=== PATIENT | female | born 1970 | race Caucasian/White ===

== ENCOUNTER 2017-08-31 08:00 | Outpatient (CLI) | payer MEDICAID ==
[2017-08-31 19:12] LABS: BASOPHILS # (AUTO) 0.1 10^3/uL (0.0-0.1); BASOPHILS % (AUTO) 1.2 %; EOSINOPHILS # (AUTO) 0.1 10^3/uL (0.0-0.7); HGB - HEMOGLOBIN 11.6 g/dL (12.0-16.0); LYMPHOCYTES # (AUTO) 1.4 10^3/uL (1.5-3.5); LYMPHOCYTES % (AUTO) 21.2 %; MEAN CORPUSCULAR HEMOGLOBIN 22.8 pg (27.0-31.0); MEAN CORPUSCULAR HGB CONC 29.6 g/dL (32.0-36.0); MEAN CORPUSCULAR VOLUME 77.1 fL (81.0-99.0); MEAN PLATELET VOLUME 7.9 fL (7.9-10.8); MONOCYTES # (AUTO) 0.6 10^3/uL (0.0-1.0); MONOCYTES % (AUTO) 8.6 %; NEUTROPHILS # (AUTO) 4.4 10^3/uL (1.5-6.6); PLT - PLATELET COUNT 246 10^3/uL (130-450); RED BLOOD COUNT 5.07 10^6/uL (4.20-5.40); RED CELL DISTRIBUTION WIDTH 22.7 % (12.0-15.0); WHITE BLOOD COUNT 6.6 x10^3/uL (4.8-10.8)
[2017-08-31 19:35] LABS: THYROID STIMULATING HORMONE 3.15 uIU/mL (0.34-5.60)
[2017-08-31 19:40] LABS: FERRITIN 18.9 ng/mL (11.0-306.8)
[2017-08-31 19:41] LABS: % IRON SATURATION 6 % (20-50); ALBUMIN 3.6 g/dL (3.2-5.5); ALBUMIN/GLOBULIN RATIO 1.1 (1.0-2.2); ALKALINE PHOSPHATASE 114 IU/L (42-121); ALT ALANINE AMINOTRANSFERASE < 10 IU/L (10-60); AST ASPARTATE AMINOTRANSFERASE 24 IU/L (10-42); BILIRUBIN,TOTAL 2.3 mg/dL (0.2-1.0); BUN - BLOOD UREA NITROGEN 9 mg/dL (6-20); CALCIUM 8.6 mg/dL (8.5-10.3); CARBON DIOXIDE - CO2 27 mmol/L (21-32); CHLORIDE 104 mmol/L (101-111); CHOL/HDL RATIO 3.4 (<4.4); CHOLESTEROL 99 mg/dL; CREATININE 0.5 mg/dL (0.4-1.0); GFR - MDRD 133 (>89); GLUCOSE 109 mg/dL (70-100); HDL CHOLESTEROL 29 mg/dL; IRON 35 ug/dL (28-170); SODIUM 137 mmol/L (135-145); TOTAL IRON BINDING CAPACITY 578 ug/dL (250-450); TOTAL PROTEIN 6.9 g/dL (6.7-8.2); TRANSFERRIN 413 mg/dL (192-382)
[2017-08-31 19:44] LABS: FOLATE 15.87 ng/mL (5.90 - >24.8)
[2017-08-31 20:10] LABS: LDL CHOLESTEROL,DIRECT 61 mg/dL; LDLD/HDL RATIO 2.1 (<4.4)
[2017-08-31 20:57] LABS: PLATELET ESTIMATE, MANUAL NORMAL (130-450,000) (NORMAL); PLATELET MORPHOLOGY 2+ GIANT PLATELETS (NORMAL)
[2017-09-01 14:37] LABS: HEPATITIS C ANTIBODY NON-REACTIVE (NON-REACTIVE)
== END 2017-08-31 08:01 | disposition home or self-care (01) ==
LOC: LAB.N 08:00
PROVIDERS: ATTEND Nurse Practitioner Gerontology
DX: Z13.9 Encounter for screening, unspecified (principal)
CPT/HCPCS: 36415; 80053; 80061; 82607; 82728; 82746; 83540; 83721; 83880; 84443; 84466; 85025; 86704; 86709; 86803; 87902

== ENCOUNTER 2017-09-05 14:32 | Emergency (ER) | payer MEDICAID ==
--- NOTE | 2017-09-05 15:01 | ED Physician Documentation ---
PD HPI DYSPNEA - Stated complaint Stated Complaint: ABD/LEG SWELLING - Chief complaint Chief Complaint: General - History obtained from History obtained from: Patient - History of Present Illness Timing - onset: How many weeks ago (2 week of increased leg edema and dyspnea. Legs a little less swollen since PCP appt last week.) Timing - onset during: Rest Timing - duration: Weeks (2) Timing - details: Gradual onset, Still present Inciting event(s): Exercise. No: Out of meds Improved by: Rest, Sitting up Associated symptoms: Cough (chronic, not recently worse), Bilateral edema. No: Fever, Wheezing, Chest pain / discomfort, Palpitations Similar symptoms before: Diagnosis (CHF) Recently seen: Clinic (had first appt with new PCP (recently moved, [place] 4 months ago but had to get new insurance arranged in [place]) last week with labs showing elevated BNP. Rest not too bad.) Review of Systems Constitutional: denies: Fever, Chills Nose: denies: Rhinorrhea / runny nose, Congestion Throat: denies: Sore throat Cardiac: reports: Pedal edema. denies: Chest pain / pressure, Palpitations, Calf pain Respiratory: reports: Dyspnea, Cough (chronic). denies: Wheezing GI: denies: Abdominal Pain, Nausea, Vomiting Skin: denies: Rash Musculoskeletal: denies: Neck pain, Back pain Neurologic: reports: Generalized weakness. denies: Focal weakness, Numbness, Near syncope, Syncope PD PAST MEDICAL HISTORY - Past Medical History Cardiovascular: Congestive heart failure, Other (cardiomyopathy from alchol/ drug use in the past. ) Respiratory: COPD Neuro: None Endocrine/Autoimmune: None - Present Medications Home Medications: Ambulatory Orders Medication Instructions Recorded Confirmed Aspirin [Adult Low Dose Aspirin EC] 81 mg PO 09/05/17 Carvedilol 3.125 mg PO 09/05/17 Cholecalciferol [Vitamin D3] 5,000 unit PO 09/05/17 Digoxin 0.125 mg PO 09/05/17 Folic Acid 1 mg PO 09/05/17 Furosemide 20 mg PO 09/05/17 Lisinopril 2.5 mg PO 09/05/17 Potassium Chloride 10 meq PO DAILY #30 tablet.er 09/05/17 Spironolactone 25 mg PO 09/05/17 - Allergies Allergies/Adverse Reactions: Allergies Allergy/AdvReac Type Severity Reaction Status Date / Time doxycycline Allergy Anaphylaxis Verified 09/05/17 14:50 PD ED PE NORMAL - Vitals Vital signs reviewed: Yes - General General: Alert and oriented X 3, No acute distress, Well developed/nourished - HEENT HEENT: Moist mucous membranes, Pharynx benign - Neck Neck: Supple, no meningeal sign, No adenopathy, Other (JVD noted at 60 degrees) - Cardiac Cardiac: RRR, No murmur - Respiratory Respiratory: No: Clear bilaterally (crackles just at bases/lower portion. Rest is clear. ) - Abdomen Abdomen: Normal bowel sounds, Soft - Back Back: No CVA TTP - Derm Derm: Normal color, Warm and dry - Extremities Extremities: No deformity, No tenderness to palpate, Normal ROM s pain, No calf tenderness / cord, Other (2+ edema in legs) - Neuro Neuro: Alert and oriented X 3, No motor deficit, Normal speech Results - Vitals Vitals: Vital Signs - 24 hr 09/05/17 09/05/17 09/05/17 14:39 14:58 17:11 Temperature 37 C Heart Rate 92 102 H Respiratory 18 20 Rate Blood Pressure 114/80 116/89 H O2 Saturation 97 95 09/05/17 18:11 Temperature Heart Rate 92 Respiratory 16 Rate Blood Pressure 125/95 H O2 Saturation 95 Oxygen O2 Source Room air - EKG (time done) 13:58 Rhythm: NSR [place]: Normal Intervals: Normal [place] QRS: Low voltage Ischemia: Normal ST segments. No: ST elevation c/w ischemia, ST depression - Labs Labs: Laboratory Tests 09/05/17 09/05/17 09/05/17 15:25 15:25 15:25 WBC 6.0 RBC 5.00 Hgb 11.5 L Hct 37.4 MCV 74.8 L MCH 23.0 L MCHC 30.8 L RDW 22.6 H Plt Count 270 MPV 7.5 L Neut # 4.1 Lymph # 1.1 L [place] # 0.6 Eos # 0.2 Baso # 0.1 Absolute Nucleated RBC 0.00 Nucleated RBC % 0.0 Manual Slide Review Indicated WBC Morphology NORMAL APPEARANCE Platelet Estimate NORMAL (130-450,000) Platelet Morphology NORMAL APPEARANCE RBC Morph Micro Appear 1+ TARGET CELLS Sodium 137 Potassium 3.3 L Chloride 103 Carbon Dioxide 25 Anion Gap 9.0 BUN 6 Creatinine 0.6 Estimated GFR (MDRD) 108 Glucose 87 Calcium 8.4 L Magnesium 1.6 L Total Bilirubin 1.6 H AST 22 ALT < 10 L Alkaline Phosphatase 108 B-Natriuretic Peptide 1716 H Total Protein 6.7 Albumin 3.6 Globulin 3.1 Albumin/Globulin Ratio 1.2 Lipase 15 L Last Dose Date UNKNOWN Last Dose Time UNKNOWN Digoxin 0.2 - Rads (name of study) chest xray Radiology: Prelim report reviewed (enlaged heart; some vascular congestion; no infiltrates. ) PD MEDICAL DECISION MAKING - ED course Complexity details: reviewed old records (she has ECHO from 03/24 showing minimal valve problems (Mild MR, TR) and cardiomyopathy with EF10-15%. She has signs of exac CHF but is stable with good sats, no work of breathing. Has PCP appt in couple days and Cardiology appt Wed (3 days). BNP is down from the . CXR is not too bad. Likely exac CHF; consider some pericardial effusion, but would treat with diuretic still at this point. ), considered differential, d/w patient Departure - Departure Disposition: Home, Self Care Clinical Impression: Cardiomyopathy Qualifiers: Cardiomyopathy type: unspecified Qualified Code(s): I42.9 - Cardiomyopathy, unspecified CHF (congestive heart failure) Qualifiers: Congestive heart failure type: combined Congestive heart failure chronicity: acute on chronic Qualified Code(s): I50.43 - Acute on chronic combined systolic (congestive) and diastolic (congestive) heart failure Condition: Stable Record reviewed to determine appropriate education?: Yes Instructions: ED CHF General Follow-Up: Cindy Rios ARNP [Primary Care Provider] - Prescriptions: Potassium Chloride 10 meq PO DAILY #30 tablet.er Comments: Increase your furosemide from 20 to 40 mg daily. Suggest taking the normal 20 mg in the morning as you have been and then a second dose of 20 mg around lunchtime. Will try to get more fluid off of the over the next few days. 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 Add a potassium supplement daily. Recheck if not improving over the next day or 2 or if you are worsening. Discharge Date/Time: 09/05/17 18:27
[2017-09-05] MEDS ORDERED: FUROSEMIDE 40 MG/4 ML VIAL IVP STA (15:29)
[2017-09-05 15:44] LABS: BASOPHILS # (AUTO) 0.1 10^3/uL (0.0-0.1); BASOPHILS % (AUTO) 1.4 %; EOSINOPHILS # (AUTO) 0.2 10^3/uL (0.0-0.7); EOSINOPHILS % (AUTO) 3.1 %; HGB - HEMOGLOBIN 11.5 g/dL (12.0-16.0); LYMPHOCYTES # (AUTO) 1.1 10^3/uL (1.5-3.5); MEAN CORPUSCULAR HGB CONC 30.8 g/dL (32.0-36.0); MEAN CORPUSCULAR VOLUME 74.8 fL (81.0-99.0); MEAN PLATELET VOLUME 7.5 fL (7.9-10.8); MONOCYTES # (AUTO) 0.6 10^3/uL (0.0-1.0); MONOCYTES % (AUTO) 10.1 %; NEUTROPHILS # (AUTO) 4.1 10^3/uL (1.5-6.6); NEUTROPHILS % (AUTO) 67.4 %; PLT - PLATELET COUNT 270 10^3/uL (130-450); RED CELL DISTRIBUTION WIDTH 22.6 % (12.0-15.0)
[2017-09-05] MEDS ORDERED: POTASSIUM BICARB 25 MEQ TABLET PO STA (15:45)
[2017-09-05 15:49] LABS: ALBUMIN 3.6 g/dL (3.2-5.5); ALBUMIN/GLOBULIN RATIO 1.2 (1.0-2.2); ALKALINE PHOSPHATASE 108 IU/L (42-121); ALT ALANINE AMINOTRANSFERASE < 10 IU/L (10-60); AST ASPARTATE AMINOTRANSFERASE 22 IU/L (10-42); BILIRUBIN,TOTAL 1.6 mg/dL (0.2-1.0); BUN - BLOOD UREA NITROGEN 6 mg/dL (6-20); CALCIUM 8.4 mg/dL (8.5-10.3); CARBON DIOXIDE - CO2 25 mmol/L (21-32); CHLORIDE 103 mmol/L (101-111); CREATININE 0.6 mg/dL (0.4-1.0); DIGOXIN 0.2 ng/mL; GFR - MDRD 108 (>89); GLUCOSE 87 mg/dL (70-100); LIPASE 15 U/L (22-51); MAGNESIUM 1.6 mg/dL (1.7-2.8); SODIUM 137 mmol/L (135-145); TOTAL PROTEIN 6.7 g/dL (6.7-8.2)
[2017-09-05] MEDS ORDERED: MAGNESIUM SULFATE 2 GRAM 2 GM/50 ML BAG IV ONE (16:26)
--- NOTE | 2017-09-05 17:38 | XRAY Report ---
EXAM: CHEST RADIOGRAPHY EXAM DATE: 09/05/2017 05:33 PM. CLINICAL HISTORY: Dyspnea; CHF. COMPARISON: None. TECHNIQUE: 2 views. FINDINGS: Lungs/Pleura: No focal opacities evident. No edema or significant vascular congestion. No pleural eff usion. No pneumothorax. Normal volumes. Mediastinum: Heart is moderately enlarged. Other: None. IMPRESSION: Moderate cardiomegaly. No priors available for comparison and a pericardial effusion is n ot excluded. No edema or consolidation. [facility] Referring Provider Line: [phone] SITE ID: [id number]
[2017-09-05 17:49] LABS: PLATELET ESTIMATE, MANUAL NORMAL (130-450,000) (NORMAL); PLATELET MORPHOLOGY NORMAL APPEARANCE (NORMAL)
[2017-09-05 18:17] VITALS: BP 125/95
== END 2017-09-05 18:27 | disposition home or self-care (01) ==
LOC: ED 14:32
DX: I42.9 Cardiomyopathy, unspecified (principal); I50.43 Acute on chronic combined systolic (congestive) and diastolic (congestive) heart failure
CPT/HCPCS: 36415; 71046; 80053; 80162; 83690; 83735; 83880; 85025; 93005; 96365; 96375; 99283; 99284; A9270

== ENCOUNTER 2018-04-29 15:13 | Emergency (ER) | payer MEDICAID ==
[2018-04-29 16:47] LABS: BASOPHILS % (AUTO) 0.3 %; EOSINOPHILS # (AUTO) 0.1 10^3/uL (0.0-0.7); EOSINOPHILS % (AUTO) 1.5 %; HGB - HEMOGLOBIN 12.8 g/dL (12.0-16.0); LYMPHOCYTES # (AUTO) 1.2 10^3/uL (1.5-3.5); LYMPHOCYTES % (AUTO) 24.9 %; MEAN CORPUSCULAR HEMOGLOBIN 26.8 pg (27.0-31.0); MEAN CORPUSCULAR HGB CONC 31.4 g/dL (32.0-36.0); MEAN CORPUSCULAR VOLUME 85.3 fL (81.0-99.0); MEAN PLATELET VOLUME 7.7 fL (7.9-10.8); MONOCYTES # (AUTO) 0.4 10^3/uL (0.0-1.0); MONOCYTES % (AUTO) 8.6 %; NEUTROPHILS # (AUTO) 3.2 10^3/uL (1.5-6.6); NEUTROPHILS % (AUTO) 64.7 %; PLT - PLATELET COUNT 209 10^3/uL (130-450); RED BLOOD COUNT 4.77 10^6/uL (4.20-5.40); RED CELL DISTRIBUTION WIDTH 20.2 % (12.0-15.0); WHITE BLOOD COUNT 4.9 x10^3/uL (4.8-10.8)
[2018-04-29 16:55] LABS: ALBUMIN 4.1 g/dL (3.2-5.5); ALBUMIN/GLOBULIN RATIO 1.4 (1.0-2.2); ALKALINE PHOSPHATASE 167 IU/L (42-121); ALT ALANINE AMINOTRANSFERASE < 10 IU/L (10-60); AST ASPARTATE AMINOTRANSFERASE 23 IU/L (10-42); BILIRUBIN,TOTAL 3.3 mg/dL (0.2-1.0); BUN - BLOOD UREA NITROGEN 7 mg/dL (6-20); CALCIUM 8.5 mg/dL (8.5-10.3); CARBON DIOXIDE - CO2 27 mmol/L (21-32); CHLORIDE 97 mmol/L (101-111); CREATININE 0.5 mg/dL (0.4-1.0); GFR - MDRD 132 (>89); GLUCOSE 98 mg/dL (70-100); LIPASE 21 U/L (22-51); SODIUM 133 mmol/L (135-145); TOTAL PROTEIN 7.1 g/dL (6.7-8.2)
[2018-04-29 17:20] LABS: PLATELET ESTIMATE, MANUAL NORMAL (130-450,000) (NORMAL); PLATELET MORPHOLOGY NORMAL APPEARANCE (NORMAL)
--- NOTE | 2018-04-29 17:47 | ED Physician Documentation ---
PD HPI ABD PAIN - Stated complaint Stated Complaint: ABD PX/BLOATING - Chief complaint Chief Complaint: Abd Pain - History obtained from History obtained from: Patient - History of Present Illness Timing - duration: Days Timing - details: Waxing and waning (She has been having intermittent pain in the central abdomen with a lump feeling. She is concerned it is a hernia. She had not noticed it as prominently previously. It has been more uncomfortable the last several days as she has also had a cough and has had increased wheezing.) Quality: Aching Location: Periumbilical Radiation: No: Chest, Lower back Worsened by: Palpation, Other (coughing) Associated symptoms: Constipation. No: Fever, Nausea, Vomiting, Diarrhea Recently seen: Not recently seen Review of Systems Constitutional: denies: Fever, Chills Nose: reports: Congestion. denies: Rhinorrhea / runny nose Throat: denies: Sore throat Cardiac: denies: Chest pain / pressure Respiratory: reports: Dyspnea, Cough, Wheezing GI: reports: Abdominal Pain. denies: Nausea, Vomiting, Diarrhea : denies: Dysuria, Frequency PD PAST MEDICAL HISTORY - Past Medical History Cardiovascular: Congestive heart failure, Other (cardiomyopathy from alchol/drug use in the past. ) Respiratory: COPD Endocrine/Autoimmune: None - Present Medications Home Medications: Ambulatory Orders Medication Instructions Recorded Confirmed Aspirin [Adult Low Dose Aspirin EC] 81 mg PO 09/05/17 Carvedilol 3.125 mg PO 09/05/17 Cholecalciferol [Vitamin D3] 5,000 unit PO 09/05/17 Digoxin 0.125 mg PO 09/05/17 Folic Acid 1 mg PO 09/05/17 Furosemide 20 mg PO 09/05/17 Lisinopril 2.5 mg PO 09/05/17 Spironolactone 25 mg PO 09/05/17 Albuterol Sulf [Ventolin Hfa 2 - 3 puffs INH Q4HR PRN #1 inhaler 04/29/18 Inhaler] Benzonatate [Tessalon] 100 mg PO TID PRN #25 capsule 04/29/18 Dexamethasone [Decadron] 4 mg PO DAILY #7 tablet 04/29/18 HYDROcod/ACETAM 5/325 [[place] 5/325] 1 tab PO Q6H PRN #15 tablet 04/29/18 - Allergies Allergies/Adverse Reactions: Allergies Allergy/AdvReac Type Severity Reaction Status Date / Time doxycycline Allergy Anaphylaxis Verified 04/29/18 15:25 - Social History Does the pt smoke?: Yes Smoking Status: Current every day smoker PD ED PE NORMAL - Vitals Vital signs reviewed: Yes - General General: Alert and oriented X 3, No acute distress, Well developed/nourished - HEENT HEENT: Pharynx benign - Neck Neck: Supple, no meningeal sign, No adenopathy - Cardiac Cardiac: RRR, No murmur - Respiratory Respiratory: No: Clear bilaterally (diffuse wheezing, without trouble talking. ) - Abdomen Abdomen: Soft, Non tender, Other (there is a hernia felt at about 10 o'clock position to the umbilicus, which is soft and easily reducible. Bowel sounds are increased. No distension of the abd. ) - Back Back: No CVA TTP - Derm Derm: Normal color, Warm and dry - Extremities Extremities: No deformity, No tenderness to palpate, No edema, No calf tende rness / cord Results - Vitals Vitals: Vital Signs - 24 hr 04/29/18 04/29/18 04/29/18 15:22 18:42 18:51 Temperature 36.5 C Heart Rate 114 H 107 H 107 H Respiratory 15 16 15 Rate Blood Pressure 119/94 H 117/96 H O2 Saturation 100 100 Oxygen O2 Source Room air - Labs Labs: Laboratory Tests 04/29/18 04/29/18 04/29/18 16:37 16:37 16:37 WBC 4.9 RBC 4.77 Hgb 12.8 Hct 40.7 MCV 85.3 MCH 26.8 L MCHC 31.4 L RDW 20.2 H Plt Count 209 MPV 7.7 L Neut # (Auto) 3.2 Lymph # (Auto) 1.2 L [place] # (Auto) 0.4 Eos # (Auto) 0.1 Baso # (Auto) 0.0 Absolute Nucleated RBC 0.00 Nucleated RBC % 0.0 Manual Slide Review Indicated Platelet Estimate NORMAL (130-450,000) Platelet Morphology NORMAL APPEARANCE RBC Morph Micro Appear 1+ POLYCHROMASIA Sodium 133 L Potassium 3.7 Chloride 97 L Carbon Dioxide 27 Anion Gap 9.0 BUN 7 Creatinine 0.5 Estimated GFR (MDRD) 132 Glucose 98 Calcium 8.5 Magnesium 1.6 L Total Bilirubin 3.3 H AST 23 ALT < 10 L Alkaline Phosphatase 167 H Total Protein 7.1 Albumin 4.1 Globulin 3.0 Albumin/Globulin Ratio 1.4 Lipase 21 L Urine Color Urine Clarity Urine pH Ur Specific [place] Urine Protein Urine Glucose (UA) Urine Ketones Urine Occult Blood Urine Nitrite Urine Bilirubin Urine Urobilinogen Ur Leukocyte Esterase Ur Microscopic Review Urine Culture Comments Last Dose Date Last Dose Time Digoxin 04/29/18 04/29/18 16:37 18:05 WBC RBC Hgb Hct MCV MCH MCHC RDW Plt Count MPV Neut # (Auto) Lymph # (Auto) [place] # (Auto) Eos # (Auto) Baso # (Auto) Absolute Nucleated RBC Nucleated RBC % Manual Slide Review Platelet Estimate Platelet Morphology RBC Morph Micro Appear Sodium Potassium Chloride Carbon Dioxide Anion Gap BUN Creatinine Estimated GFR (MDRD) Glucose Calcium Magnesium Total Bilirubin AST ALT Alkaline Phosphatase Total Protein Albumin Globulin Albumin/Globulin Ratio Lipase Urine Color YELLOW Urine Clarity CLEAR Urine pH 6.0 Ur Specific [place] 1.015 Urine Protein NEGATIVE Urine Glucose (UA) NEGATIVE Urine Ketones NEGATIVE Urine Occult Blood NEGATIVE Urine Nitrite NEGATIVE Urine Bilirubin NEGATIVE Urine Urobilinogen 1 (NORMAL) Ur Leukocyte Esterase NEGATIVE Ur Microscopic Review NOT INDICATED Urine Culture Comments NOT INDICATED Last Dose Date UNKNOWN Last Dose Time UNKNOWN Digoxin < 0.2 PD MEDICAL DECISION MAKING - ED course Complexity details: considered differential (Just on clinical exam I can feel the hernia which protrudes up at the 10 o'clock position from the umbilicus. It is soft and easily reducible. It is locally tender. I think this is hurting more because of the cough she has had recently and the emphasis was on treating the cough and COPD exacerbation.), d/w patient Departure - Departure Disposition: 01 Home, Self Care Clinical Impression: COPD exacerbation Umbilical hernia Qualifiers: Obstruction and gangrene presence: without obstruction or gangrene Qualified Code(s): K42.9 - Umbilical hernia without obstruction or gangrene Condition: Stable Record reviewed to determine appropriate education?: Yes Instructions: ED Hernia Inguinal Follow-Up: Cindy Rios ARNP [Primary Care Provider] - Christophe Leonard MD [Provider Admit Priv/Credential] - Prescriptions: Albuterol Sulf [Ventolin Hfa Inhaler] 2 - 3 puffs INH Q4HR PRN #1 inhaler PRN Reason: Shortness Of Air/Wheezing Benzonatate [Tessalon] 100 mg PO TID PRN #25 capsule PRN Reason: Cough Dexamethasone [Decadron] 4 mg PO DAILY #7 tablet HYDROcod/ACETAM 5/325 [[place] 5/325] 1 tab PO Q6H PRN #15 tablet PRN Reason: Pain Comments: There is a hernia in the mid abdomen. It is soft and reducible right now. It is likely hurting more because of the coughing that you are doing and we will treat that primarily. Continue stool softeners regularly. He can follow-up with surgery regarding potential repair of the hernia and what is involved. Call for an appointment. Regarding your cough, continue your nebulizer treatments 3-4 times a day for the next several days. Use the inhaler as needed when out and around. Decadron steroid daily for the next week for inflammation of the bronchioles. Use Tessalon if needed for cough. Add hydrocodone if needed for cough or belly pain. Recheck if not improving over the next few days. Discharge Date/Time: 04/29/18 19:18
[2018-04-29 18:17] LABS: BILIRUBIN,URINE NEGATIVE (NEGATIVE); GLUCOSE, URINE (UA) NEGATIVE (NEGATIVE); KETONES,URINE (UA) NEGATIVE (NEGATIVE); LEUKOCYTE ESTERASE, URINE NEGATIVE (NEGATIVE); NITRITE,URINE NEGATIVE (NEGATIVE); OCCULT BLOOD,URINE NEGATIVE (NEGATIVE); PROTEIN,URINE NEGATIVE (NEGATIVE); UROBILINOGEN,URINE 1 (NORMAL) E.U./dL (NORMAL)
[2018-04-29] MEDS ORDERED: HYDROcod/ACETAM 5/325 MG TABLET PO STA (18:29)
[2018-04-29] MEDS ORDERED: DEXAMETHASONE 10 MG/ML VIAL PO STA (18:29)
[2018-04-29] MEDS ORDERED: IPRATROPIUM/ALBUTEROL 3 ML NEB INH STA (18:29)
[2018-04-29] MEDS ORDERED: BENZONATATE 100 MG CAPSULE PO STA (18:29)
[2018-04-29 18:34] LABS: CLARITY,URINE CLEAR (CLEAR)
[2018-04-29] MEDS ORDERED: CHERRY SYRUP 10 ML UDC PO ONE (18:45)
[2018-04-29 18:50] LABS: DIGOXIN < 0.2 ng/mL
[2018-04-29 18:51] VITALS: BP 117/96
== END 2018-04-29 19:18 | disposition home or self-care (01) ==
LOC: ED 15:13
DX: J44.1 Chronic obstructive pulmonary disease with (acute) exacerbation (principal); K42.9 Umbilical hernia without obstruction or gangrene; I50.9 Heart failure, unspecified; I42.9 Cardiomyopathy, unspecified; F17.200 Nicotine dependence, unspecified, uncomplicated
CPT/HCPCS: 36415; 80053; 80162; 81003; 83690; 83735; 85025; 94640; 99283; A9270; 81001; 87086

== ENCOUNTER 2018-05-11 17:20 | Outpatient (CLI) | payer MEDICAID | END 2018-05-11 17:21 | disposition critical access hospital (66) | LOC: EMS 17:20 | PROVIDERS: ATTEND Surgery | DX: R46.4 Slowness and poor responsiveness (principal); R53.1 Weakness; R56.9 Unspecified convulsions | CPT/HCPCS: A0425; A0427; A0999 ==

== ENCOUNTER 2018-05-11 17:43 | Inpatient (IN) | payer MEDICAID ==
[2018-05-11] MEDS ORDERED: NALOXONE 0.4 MG/ML VIAL IVP STA (17:51)
[2018-05-11] MEDS ORDERED: SODIUM CHLORIDE 0.9% 1,000 ML IV ONE (17:51)
[2018-05-11] MEDS ORDERED: NALOXONE 0.4 MG/ML VIAL ONE (17:53)
--- NOTE | 2018-05-11 17:54 | ED Physician Documentation ---
PD HPI ALTERED MENTAL STATUS - Stated complaint Stated Complaint: POSS STROKE - History obtained from History obtained from: Family, EMS - History of Present Illness Timing - onset: How many hours ago (Family member states the patient has been somewhat sleepy and not feeling well for the last 2-3 days. She seemed to be doing a little bit better this morning. The family went out of the house around 130 and upon their return at 5:00 they noticed the patient to be unresponsive. One family member said he saw some tremoring type activity of the extremities and the patient was not responding well and seemed to be foaming at the mouth. They thought it might be a seizure activity. The patient does not have any history of seizures however. She did a pale appears somewhat dusky as well. She does have history of CHF due to cardiomyopathy from prior alcohol and drug use. EMS was notified and the patient was brought here. On route the medics also noted a tremoring and tightening of the muscles that looked seizure-like. She was still sleepy for a while after that. They state it lasted just a few seconds and definitely less than a minute.), Today Timing - details: Abrupt onset (within 3-4 hour timeframe, but had been not feeling well and weaker for 2-3 days.) Quality / character: Unresponsive, Confused Associated symptoms: Dyspnea, General weakness. No: Fever, Headache, Cough, NVD Contributing factors: Diabetic, COPD, Other (CHF). No: Anticoagulated, Recent illness Basline status: Alert and oriented X 3, Ambulatory Similar symptoms before: Has not had sx before Recently seen: Emergency Dept Review of Systems Unable to obtain: AMS, Other (info from family) Constitutional: denies: Fever Cardiac: denies: Chest pain / pressure Respiratory: denies: Dyspnea, Cough GI: reports: Nausea, Vomiting. denies: Abdominal Pain, Diarrhea Neurologic: denies: Headache PD PAST MEDICAL HISTORY - Past Medical History Cardiovascular: Congestive heart failure, Other (cardiomyopathy from alchol/drug use in the past. 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 - Present Medications Home Medications: Ambulatory Orders Medication Instructions Recorded Confirmed Aspirin [Adult Low Dose Aspirin EC] 81 mg PO 09/05/17 Carvedilol 3.125 mg PO 09/05/17 Cholecalciferol [Vitamin D3] 5,000 unit PO 09/05/17 Digoxin 0.125 mg PO 09/05/17 Folic Acid 1 mg PO 09/05/17 Furosemide 20 mg PO 09/05/17 Lisinopril 2.5 mg PO 09/05/17 Spironolactone 25 mg PO 09/05/17 Albuterol Sulf [Ventolin Hfa 2 - 3 puffs INH Q4HR PRN #1 inhaler 04/29/18 Inhaler] Benzonatate [Tessalon] 100 mg PO TID PRN #25 capsule 04/29/18 Dexamethasone [Decadron] 4 mg PO DAILY #7 tablet 04/29/18 HYDROcod/ACETAM 5/325 [[place] 5/325] 1 tab PO Q6H PRN #15 tablet 04/29/18 - Allergies Allergies/Adverse Reactions: Allergies Allergy/AdvReac Type Severity Reaction Status Date / Time doxycycline Allergy Anaphylaxis Verified 05/11/18 17:52 - Social History Does the pt smoke?: Yes Smoking Status: Current every day smoker Does the pt drink ETOH?: No Does the pt have substance abuse?: No - Immunizations Immunizations are current?: Yes PD ED PE NORMAL - General General: No: Alert and oriented X 3 (opens eyes to tactile stimulus. Short simple answers to questions. ) - HEENT HEENT: Atraumatic, Pharynx benign - Neck Neck: Supple, no meningeal sign, No adenopathy - Cardiac Cardiac: No: RRR (mild tachycardia) - Respiratory Respiratory: No: Clear bilaterally (fine crackles at bases. ) - Abdomen Abdomen: Soft, Non distended. No: Normal bowel sounds (decreased) - Female Female : Deferred - Rectal Rectal: Deferred - Back Back: No CVA TTP - Derm Derm: Normal color - Extremities Extremities: No tenderness to palpate, Normal ROM s pain, No edema, No calf tenderness / cord - Neuro Neuro: No motor deficit (she is moving both arms and legs after arrival here and slowly becoming more alert. ), Normal speech. No: Alert and oriented X 3 Eye Opening: To Pain Motor: Localizes to Pain Verbal: Confused GCS Score: 11 Results - Vitals Vitals: Vital Signs - 24 hr 05/11/18 05/11/18 05/11/18 17:46 18:00 18:36 Temperature 36.1 C L Heart Rate 109 H 100 99 Respiratory 39 H 16 15 Rate Blood Pressure 122/112 H 94/84 H O2 Saturation 93 100 05/11/18 05/11/18 19:18 19:34 Temperature Heart Rate 94 105 H Respiratory 28 H 21 Rate Blood Pressure 111/91 H O2 Saturation 98 Oxygen O2 Source Non-rebreather mask - Labs Labs: Laboratory Tests 05/11/18 05/11/18 05/11/18 17:31 17:51 17:51 WBC RBC Hgb Hct MCV MCH MCHC RDW Plt Count MPV Neut # (Auto) Lymph # (Auto) [place] # (Auto) Eos # (Auto) Baso # (Auto) Absolute Nucleated RBC Nucleated RBC % Manual Slide Review Platelet Estimate Platelet Morphology RBC Morph Micro Appear PT 21.9 H INR 2.0 H Sodium Potassium Chloride Carbon Dioxide Anion Gap BUN Creatinine Estimated GFR (MDRD) Glucose Calcium Magnesium Total Bilirubin AST ALT Alkaline Phosphatase Ammonia Troponin I B-Natriuretic Peptide 3303 H Total Protein Albumin Globulin Albumin/Globulin Ratio Lipase Urine Opiates Screen Ur Oxycodone Screen Urine Methadone Screen Ur Propoxyphene Screen Ur Barbiturates Screen Ur Tricyclics Screen Ur Phencyclidine Scrn Ur Amphetamine Screen U Methamphetamines Scrn U Benzodiazepines Scrn Urine Cocaine Screen U Cannabinoids Screen Ethyl Alcohol < 5.0 05/11/18 05/11/18 05/11/18 17:56 17:56 17:56 WBC 11.1 H RBC 4.92 Hgb 13.2 Hct 44.4 MCV 90.2 MCH 26.8 L MCHC 29.7 L RDW 20.3 H Plt Count 200 MPV 7.8 L Neut # (Auto) 8.9 H Lymph # (Auto) 1.3 L [place] # (Auto) 0.8 Eos # (Auto) 0.0 Baso # (Auto) 0.1 Absolute Nucleated RBC 0.01 Nucleated RBC % 0.1 Manual Slide Review Indicated Platelet Estimate NORMAL (130-450,000) Platelet Morphology NORMAL APPEARANCE RBC Morph Micro Appear 2+ POIKILOCYTOSIS PT INR Sodium 135 Potassium 3.8 Chloride 100 L Carbon Dioxide 19 L Anion Gap 16.0 H BUN 14 Creatinine 0.8 Estimated GFR (MDRD) 77 L Glucose 119 H Calcium 8.6 Magnesium 1.7 Total Bilirubin 4.0 H AST 50 H ALT 11 Alkaline Phosphatase 176 H Ammonia Troponin I < 0.04 B-Natriuretic Peptide Total Protein 7.0 Albumin 3.7 Globulin 3.3 Albumin/Globulin Ratio 1.1 Lipase 19 L Urine Opiates Screen Ur Oxycodone Screen Urine Methadone Screen Ur Propoxyphene Screen Ur Barbiturates Screen Ur Tricyclics Screen Ur Phencyclidine Scrn Ur Amphetamine Screen U Methamphetamines Scrn U Benzodiazepines Scrn Urine Cocaine Screen U Cannabinoids Screen Ethyl Alcohol 05/11/18 05/11/18 19:03 21:27 WBC RBC Hgb Hct MCV MCH MCHC RDW Plt Count MPV Neut # (Auto) Lymph # (Auto) [place] # (Auto) Eos # (Auto) Baso # (Auto) Absolute Nucleated RBC Nucleated RBC % Manual Slide Review Platelet Estimate Platelet Morphology RBC Morph Micro Appear PT INR Sodium Potassium Chloride Carbon Dioxide Anion Gap BUN Creatinine Estimated GFR (MDRD) Glucose Calcium Magnesium Total Bilirubin AST ALT Alkaline Phosphatase Ammonia 73.7 H Troponin I B-Natriuretic Peptide Total Protein Albumin Globulin Albumin/Globulin Ratio Lipase Urine Opiates Screen POSITIVE H Ur Oxycodone Screen NEGATIVE Urine Methadone Screen NEGATIVE Ur Propoxyphene Screen NEGATIVE Ur Barbiturates Screen NEGATIVE Ur Tricyclics Screen NEGATIVE Ur Phencyclidine Scrn NEGATIVE Ur Amphetamine Screen NEGATIVE U Methamphetamines Scrn NEGATIVE U Benzodiazepines Scrn NEGATIVE Urine Cocaine Screen NEGATIVE U Cannabinoids Screen NEGATIVE Ethyl Alcohol - Rads (name of study) head CT Radiology: Prelim report reviewed, Discussed with rads (no acute process; old CVA noted. ) PD MEDICAL DECISION MAKING - ED course Complexity details: considered differential (At first was concerned for intracranial bleed. However that was normal. We did provide some oxygen support. She does have history of CHF and COPD and was given a nebulizer treatment with some wheeziness sounds. She was given some IV Lasix as well. Blood tests returned showing an elevated bilirubin which was newer for her. Her prior one was 2.3 and this was 4.4. I then added an ammonia level to her labs and this was elevated at 73. This could certainly be the cause of her decreased mentation. Likely she had a syncopal episode as well. Not clear whether she had a true seizure by the descriptions or had a syncope with tremoring. She did become more relatively alert here though is still not answering questions fully well. Her breathing was adequate and her vital signs remained stable. I talked with the hospitalist who agreed to see the patient and have her in the hospital for treatment. I did do CT scan of the abdomen because of the elevated bilirubin and it showed some thickening of the gallbladder wall but not overtly cholecystitis. The bile duct appeared normal.), d/w patient Departure - Departure Disposition: 66 [facility] DC/Xfer Clinical Impression: Observed seizure-like activity, Hyperammonemia Altered mental status Qualifiers: Altered mental status type: somnolence Qualified Code(s): R40.0 - Somnolence Dyspnea Qualifiers: Dyspnea type: shortness of breath Qualified Code(s): R06.02 - Shortness of breath CHF (congestive heart failure) Qualifiers: Heart failure type: systolic Heart failure chronicity: acute on chronic Qualified Code(s): I50.23 - Acute on chronic systolic (congestive) heart failure Condition: Stable Record reviewed to determine appropriate education?: Yes Discharge Date/Time: 05/11/18 22:38
[2018-05-11 18:11] LABS: BASOPHILS # (AUTO) 0.1 10^3/uL (0.0-0.1); BASOPHILS % (AUTO) 0.7 %; EOSINOPHILS % (AUTO) 0.2 %; HGB - HEMOGLOBIN 13.2 g/dL (12.0-16.0); LYMPHOCYTES # (AUTO) 1.3 10^3/uL (1.5-3.5); LYMPHOCYTES % (AUTO) 11.5 %; MEAN CORPUSCULAR HEMOGLOBIN 26.8 pg (27.0-31.0); MEAN CORPUSCULAR HGB CONC 29.7 g/dL (32.0-36.0); MEAN CORPUSCULAR VOLUME 90.2 fL (81.0-99.0); MEAN PLATELET VOLUME 7.8 fL (7.9-10.8); MONOCYTES # (AUTO) 0.8 10^3/uL (0.0-1.0); MONOCYTES % (AUTO) 7.3 %; NEUTROPHILS # (AUTO) 8.9 10^3/uL (1.5-6.6); NEUTROPHILS % (AUTO) 80.3 %; PLT - PLATELET COUNT 200 10^3/uL (130-450); RED BLOOD COUNT 4.92 10^6/uL (4.20-5.40); RED CELL DISTRIBUTION WIDTH 20.3 % (12.0-15.0); WHITE BLOOD COUNT 11.1 x10^3/uL (4.8-10.8)
[2018-05-11 18:17] LABS: ALBUMIN 3.7 g/dL (3.2-5.5); ALBUMIN/GLOBULIN RATIO 1.1 (1.0-2.2); CALCIUM 8.6 mg/dL (8.5-10.3); CREATININE 0.8 mg/dL (0.4-1.0); MAGNESIUM 1.7 mg/dL (1.7-2.8)
--- NOTE | 2018-05-11 18:22 | XRAY Report ---
Reason: dyspnea/ unresponsive Procedure Date: 05/11/2018 Accession Number: [id number] / [id number] Procedure: XR - Chest 1 View X-Ray CPT Code: 39389 FULL RESULT: EXAM: CHEST RADIOGRAPHY EXAM DATE: 05/11/2018 06:08 PM. CLINICAL HISTORY: Dyspnea/ unresponsive. COMPARISON: 09/05/2017. TECHNIQUE: 1 view. FINDINGS: Lungs/Pleura: No focal opacities evident. On visualization of the left hemidiaphragm on the frontal view is likely due to overlapping structures and technique. No pleural effusion. No pneumothorax. Mediastinum: Moderate to marked cardiomegaly, as before Other: None. IMPRESSION: No acute findings. Moderate to marked cardiomegaly. [facility]
--- NOTE | 2018-05-11 18:22 | CT Report ---
Reason: altered mentation/ unresponsive Procedure Date: 05/11/2018 Accession Number: [id number] / [id number] Procedure: CT - Head W/O Stroke Protocol CPT Code: FULL RESULT: EXAM: CT HEAD EXAM DATE: 05/11/2018 06:09 PM. CLINICAL HISTORY: Altered mentation/ unresponsive. COMPARISON: None. TECHNIQUE: Multiaxial CT images were obtained from the foramen magnum to the vertex. Reformats: Sagittal and coronal. IV contrast: None. In accordance with CT protocol optimization, one or more of the following dose reduction techniques were utilized for this exam: automated exposure control, adjustment of mA and/or KV based on patient size, or use of iterative reconstructive technique. FINDINGS: Parenchyma: No intraparenchymal hemorrhage. No evidence of mass, midline shift, or CT findings of acute infarction. There are old left frontotemporal and left occipital infarcts. Mosley-white differentiation is distinct. Extraaxial Spaces: Normal for age. No subdural or epidural collections identified. Ventricles: Normal in size and position. Sinuses and Orbits: Imaged paranasal sinuses, orbits, and mastoids show no significant abnormality. Bones: No evidence of fracture or calvarial defect. Other: None. IMPRESSION: 1. No acute intracranial abnormality. 2. 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 [facility] The call report notification system was initiated by Dr. Erik Marc at 18:17 hrs on 05/11/18. The above findings were discussed with Irwin Fulton by Dr. Erik Marc at 18:20 hrs on 05/11/18.
[2018-05-11] MEDS ORDERED: IPRATROPIUM/ALBUTEROL 3 ML NEB INH STA (19:21)
[2018-05-11] MEDS ORDERED: LACTULOSE 10 GM/15 ML BOTTLE PR STA (19:23)
[2018-05-11] MEDS ORDERED: IOPAMIDOL-300 100 ML VIAL ONE (19:34)
[2018-05-11 19:55] LABS: PLATELET ESTIMATE, MANUAL NORMAL (130-450,000) (NORMAL); PLATELET MORPHOLOGY NORMAL APPEARANCE (NORMAL)
[2018-05-11] MEDS ORDERED: IOPAMIDOL-300 100 ML VIAL IVP ONE (20:19)
--- NOTE | 2018-05-11 20:33 | CT Report ---
Reason: elevated bili and ammonia Procedure Date: 05/11/2018 Accession Number: [id number] / [id number] Procedure: CT - Abdomen/Pelvis W/ CPT Code: FULL RESULT: EXAM: CT ABDOMEN AND PELVIS EXAM DATE: 05/11/2018 07:58 PM. CLINICAL HISTORY: Elevated bili and ammonia. COMPARISONS: CHEST 1 VIEW 05/11/2018 5:58 PM. TECHNIQUE: Routine helical CT imaging was performed through the abdomen and pelvis. IV contrast: 100 ML ISOVUE 300. Enteric contrast: No. Reconstructions: Coronal and sagittal. In accordance with CT protocol optimization, one or more of the following dose reduction techniques were utilized for this exam: automated exposure control, adjustment of mA and/or KV based on patient size, or use of iterative reconstructive technique. FINDINGS: Lung Bases: Mild left basilar atelectasis. Liver: Normal. No masses. Gallbladder/Bile Ducts: Moderate gallbladder wall thickening. Slight luminal hyperdensity in the gallbladder. No ductal dilatation. Spleen: Normal. Pancreas: Normal. Adrenal Glands: Normal. Kidneys: Normal. No masses or hydronephrosis. Peritoneal Cavity/Bowel: Unopacified stomach and small bowel are nondistended. The appendix is normal. There is minimal stool in the colon. There is no pericolonic fat stranding. There is small volume abdominal and large volume pelvic ascites. There is no pneumoperitoneum. There are shotty retroperitoneal lymph nodes. Pelvic Organs: Bladder unremarkable. Mildly enlarged uterus including a 3.0 cm right noncalcified and 2.6 cm left calcified anterior fundal body fibroids. No la adnexal mass is identified. Vasculature: Marked cardiomegaly. Moderate contrast reflux into the IVC and hepatic veins consistent with decreased cardiac output. Small to moderate pericardial effusion. Minimal iliac artery atherosclerotic calcification. Abdominal aorta, celiac axis, SMA, and AURELIO appear widely patent as do the renal arteries. Bones: No significant abnormality. Other: Moderate generalized body wall edema. 2.9 x 5.0 x 4.5 cm right-superior periumbilical fat-containing hernia. IMPRESSION: 1. Marked cardiomegaly. Small to moderate pericardial effusion. Moderate contrast reflux into the IVC and hepatic veins consistent with decreased cardiac output. 2. Marked gallbladder wall thickening/edema. Slight gallbladder luminal hyperdensity which could reflect sludge or stones. The wall thickening may be related to generalized edema or liver disease rather than cholecystitis. 3. The liver is unremarkable in appearance other than the contrast reflux into the hepatic veins. A component of passive hepatic congestion could contribute to liver dysfunction. 4. Small abdominal and large pelvic ascites. 5. Moderate generalized body wall edema. 6. Fibroid uterus. 7. 5 cm right superior periumbilical fat-containing hernia. [facility]
[2018-05-11] MEDS ORDERED: FUROSEMIDE 40 MG/4 ML VIAL IVP STA ×2 (20:42→21:47)
[2018-05-11] MEDS ORDERED: LACTULOSE 10 GM /15 ML UDC ONE (20:47)
[2018-05-11 21:27] LABS: PT - PROTHROMBIN TIME 21.9 secs (9.9-12.6)
[2018-05-11 21:29] LABS: MUDS CUTOFF CONCENTRATIONS CUTOFF CONC BELOW:
[2018-05-11 21:44] LABS: AMPHETAMINE SCREEN,URINE NEGATIVE (NEGATIVE); BENZODIAZEPINES SCREEN, URINE NEGATIVE (NEGATIVE); COCAINE SCREEN URINE NEGATIVE (NEGATIVE); METHADONE SCREEN, URINE NEGATIVE (NEGATIVE); METHAMPHETAMINES SCREEN, URINE NEGATIVE (NEGATIVE); OPIATE SCREEN, URINE POSITIVE (NEGATIVE); OXYCODONE SCREEN, URINE NEGATIVE (NEGATIVE); PROPOXYPHENE SCREEN, URINE NEGATIVE (NEGATIVE); TRICYCLIC ANTIDEPRESSANT,URINE NEGATIVE (NEGATIVE)
[2018-05-11] MEDS ORDERED: ONDANSETRON 4 MG/2 ML VIAL IVP STA (21:48)
--- NOTE | 2018-05-11 22:33 | HISTORY & PHYSICAL EXAMINATION ---
Chief Complaint - Chief Complaint Chief Complaint: Altered Mental Status History of Present Illness - Admitted From Admitted From:: ER - History Obtained From Records Reviewed: Yes History obtained from: Daughter Exam Limitations: Patient Altered - History of Present Illness HPI Comment/Other: 48 yo female w/ pmh of CHF, COPD, HTN, history of alcohol and methamphetamine abuse presents to the emergency department with altered mental status. Daughter provided history due to pt ams. Daughter states her mother recently moved to [facility] from [place], [place] last year. Pt has her own house, but has been living at her daughters house due to loneliness from her significant other being away on work. Pt was at her daughters house and following a nap was found to be responsive only to painful stimuli and shaking. She was tremulous in her hands and that was new. Pt has no history of seizures. Pt was responding and acting properly prior to the nap. Pt daughter called EMS who reported jaw clenching and tremulousness. Pt did not bite her tongue or have incontinence. Pt has no recent history of travel, sickness. Pt daughter states she has been SOB, but states this is chronic due to her COPD which she has been taking decadron from a recent ER visit 10 days prior. According to the daughter, review of systems is negative with regards to infection, cardiac, pulmonary destabilization. Patient is compliant with medications. In the emergency room,Pt continues to be altered with evidence of metabolic encephalopathy due to possible hepatic encephalopathy. Pt daughter is explained the lab values, imaging, treatment plan and understands fully. Pt daughter states her mother is a full code. History - Past Medical History Cardiovascular: reports: Congestive heart failure (Review of her echo in [facility] from when she lived in [place] shows negative carotid Dopplers, echo with ejection fraction 12%, severely enlarged left atria, wall motion ab normality with anterior, septal, inferior, lateral, apical akinesis. Stress test with Lexiscan done March 24, 2017 was a nondiagnostic pharmacologic stress test with normal perfusion and severe LV dysfunction.), Hypertension, Other (cardiomyopathy from alchol/drug use in the past. ) Respiratory: reports: COPD (And is a current tobacco smoker, not on oxygen) Neuro: reports: None Endocrine/Autoimmune: reports: None PLANT CUSTODIAN: reports: Other () : reports: None HEENT: reports: None Psych: reports: None Musculoskeletal: reports: None Derm: reports: None MRSA Hx?: No - Past Surgical History /PLANT CUSTODIAN: reports: Tubal ligation - Family & Social History Family History: Mother: Alive and Well (Father - unknown ; Mother - Heart Dx), Father: Alive and Well, Brother: Alive and Well, (one brother ), Diabetes, Type 2 Family History Comment/Other: History limited due to pt ams, daughters knowledge and lack of pt record Living arrangement: At home Living Situation: Alone, Other (Daughter states she spends most time at her apartment rather than at her house due to loneliness. ) Social History Notes: 48 yo female smokes 2 packs per day and has been attem pting to decrease smoking habit based on daughters report. Daughter denies that her mother drinks alcohol and illicit drug use. Previous visits reveal history of methamphetamine and alcohol abuse with reports of being sober for years. 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 - Substance History Use: Uses substance without health or social issues: Tobacco Abuse: Recurrent use of substance despite neg consequences: Alcohol, Amphetamine Dependence: Experiences withdrawal or developed tolerances: Tobacco Tobacco Details: Cigarettes (2 packs) - POLST Patient has POLST: No POLST Status: Full Code Meds/Allgy - Home Medications Home Medications: Ambulatory Orders Medication Instructions Recorded Confirmed Aspirin [Adult Low Dose Aspirin EC] 81 mg PO 09/05/17 Carvedilol 3.125 mg PO 09/05/17 Cholecalciferol [Vitamin D3] 5,000 unit PO 09/05/17 Digoxin 0.125 mg PO 09/05/17 Folic Acid 1 mg PO 09/05/17 Furosemide 20 mg PO 09/05/17 Lisinopril 2.5 mg PO 09/05/17 Spironolactone 25 mg PO 09/05/17 Albuterol Sulf [Ventolin Hfa 2 - 3 puffs INH Q4HR PRN #1 inhaler 04/29/18 Inhaler] Benzonatate [Tessalon] 100 mg PO TID PRN #25 capsule 04/29/18 Dexamethasone [Decadron] 4 mg PO DAILY #7 tablet 04/29/18 HYDROcod/ACETAM 5/325 [[place] 5/325] 1 tab PO Q6H PRN #15 tablet 04/29/18 - Allergies Allergies/Adverse Reactions: Allergies Allergy/AdvReac Type Severity Reaction Status Date / Time doxycycline Allergy Anaphylaxis Verified 05/11/18 17:52 Review of Systems - Other Findings Other Findings: Unable to complete review of systems due to altered mental status. Prior Level of Functionality: Pt needs no assistance and completes ADL. She has a significant other who is a mechanic welder truck driver and away on work most of the time. Pt moved from [place], [place] to [facility] this past year to live with her daughters. Her daughter states she has her own house, but lives with her daughter most of the time due to lone liness. Exam - Vital Signs Reviewed Vital Signs: Yes Vital Signs: Vital Signs x48h Temp Pulse Resp BP Pulse Ox 05/11/18 19:34 105 H 21 05/11/18 19:18 94 28 H 111/91 H 98 05/11/18 18:36 99 15 94/84 H 100 05/11/18 18:00 100 16 05/11/18 17:46 36.1 C L 109 H 39 H 122/112 H 93 - Physical Exam General Appearance: positive: Other (Altered Mental Status, Response to Pain Stimulus) Eyes Bilateral: positive: PERRL ENT: positive: No signs of dehydration Neck: positive: Nml inspection Respiratory: positive: No respiratory distress Cardiovascular: positive: No murmur, No gallop, Tachycardia Peripheral Pulses: positive: 2+ Abdomen: positive: Nml bowel sounds. negative: No distention (Distended) Rectal: negative: Bloody stool Back: positive: Nml inspection Skin: positive: No rash, Warm, Dry, Other (Bilateral varicosities on lower extremities) Extremities: positive: Non-tender, Pedal edema (+1) Neurologic/Psychiatric: positive: Disoriented to person, Disoriented to place, Disoriented to time. negative: Oriented x3 Conclusion/Plan - Problem List (1) Acute metabolic encephalopathy Conclusion/Plan: Most likely due to hyperammonemia due to hepatic encephalopathy as a result from alcohol abuse. Hepatitis B/C negative in [facility]. She does not have a history of varices. Plan: CBC, CMP, Ammonia, Lactic Acid on daily labs Lactulose per rectum for now and change to po when awake. IVF In the outpatient setting she will need referral to GI. (2) Hyperammonemia Conclusion/Plan: Likely due to alcohol abuse resultant in liver damage. Plan: CBC, CMP, Ammonia Lactulose per rectum until awake then change to po. (3) Observed seizure-like activity Conclusion/Plan: EMS noted jaw was clenching and tremulous. Daughter states she was shaking upon waking up from a nap. No previous history of seizure activity. CT Head negative. Plan: Doubt this was a seizure with no known seizure hx nor a seizure focus such as stroke. May be all due to asterixis and encephalopathy. CMP, Ammonia daily Lactulose to treat hyperammonia Monitor for any further seizure activity (4) CHF (congestive heart failure) Conclusion/Plan: Last documented echo in [place], [place] on 03/30/2017: Severe LV Dysfunction with LVEF of 13%, Mild left ventricular enlargement, moderate left atrial enlargement, moderate right atrial enlargement, normal right ventricular size, normal aortic valve structures, normal tricuspid valve structures, normal pulmonic valve structures, mild mitral regurgitation, trivial pulmonic regurgitation, small pericardial effusion, upper normal PA pressures by Doppler. Plan: repeat Echo lasix to continue coreg to continue LUIS MIGUEL to continue. Daily BNP Qualifiers: Heart failure type: systolic Heart failure chronicity: acute on chronic Qualified Code(s): I50.23 - Acute on chronic systolic (congestive) heart failure (5) Cardiomyopathy Conclusion/Plan: Most likely due to alcoholic cardiomyopathy. Echo in [place], [place] on 03/30/2017: Severe LV Dysfunction with LVEF of 13%, Mild left ventricular enlargement, moderate left atrial enlargement, moderate right atrial enlargement, normal right ventricular size, normal aortic valve structures, normal tricuspid valve structures, normal pulmonic valve structures, mild mitral regurgitation, trivial pulmonic regurgitation, small pericardial effusion, upper normal PA pressures by Doppler. Plan: Echo Qualifiers: Cardiomyopathy type: alcoholic Qualified Code(s): I42.6 - Alcoholic cardiomyopathy (6) COPD (chronic obstructive pulmonary disease) Conclusion/Plan: RR 20 with 2L of oxygen with 97% saturation. Chronic condition being treated with decadron from previous ER visit. Plan: monitor O2 saturation keeping >92% breathing treatments if necessary Qualifiers: COPD type: unspecified COPD Qualified Code(s): J44.9 - Chronic obstructive pulmonary disease, unspecified (7) Hypertension Conclusion/Plan: 111-94 systolic and 91-84 diastolic during stay. Chronic issue controlled via po medication. Plan: Monitor [facility]als [facility] Qualifiers: Hypertension type: essential hypertension Qualified Code(s): I10 - Essential (primary) hypertension (8) Cirrhosis of liver with ascites Conclusion/Plan: That is not a known diagnosis for her in the past. It was not present on her problem list when she saw her PCP in August. However, INR is prolonged. The question is whether she has mild cirrhosis and passive liver congestion from right-sided heart failure is made this worse. Or she has concurrent liver disease on top of her heart disease causing hepatic encephalopathy. Previous hepatitis panels are negative for B and C. CT the abdomen is unremarkable for severe cirrhosis. CBC is stable and indicates no esophageal variceal bleeding. Again, she will need outpatient follow-up Qualifiers: Hepatic cirrhosis type: alcoholic cirrhosis Qualified Code(s): K70.31 - Alcoholic cirrhosis of liver with ascites (9) Elevated liver enzymes Conclusion/Plan: Hepatitis panel has been negative in the past. This woman probably has alcoholic liver disease. But the gallbladder is inflamed on CT the abdomen. Need to monitor to see if she develops right upper quadrant pain, fever, etc. - Lab Results Fish Bones: 05/11/18 17:56 05/11/18 17:56 Other Lab Results: Laboratory Tests 05/11/18 05/11/18 05/11/18 17:31 17:51 17:56 Ammonia Troponin I < 0.04 B-Natriuretic Peptide 3303 H Urine Opiates Screen Ur Oxycodone Screen Urine Methadone Screen Ur Propoxyphene Screen Ur Barbiturates Screen Ur Tricyclics Screen Ur Phencyclidine Scrn Ur Amphetamine Screen U Methamphetamines Scrn U Benzodiazepines Scrn Urine Cocaine Screen U Cannabinoids Screen Ethyl Alcohol < 5.0 05/11/18 05/11/18 19:03 21:27 Ammonia 73.7 H Troponin I B-Natriuretic Peptide Urine Opiates Screen POSITIVE H Ur Oxycodone Screen NEGATIVE Urine Methadone Screen NEGATIVE Ur Propoxyphene Screen NEGATIVE Ur Barbiturates Screen NEGATIVE Ur Tricyclics Screen NEGATIVE Ur Phencyclidine Scrn NEGATIVE Ur Amphetamine Screen NEGATIVE U Methamphetamines Scrn NEGATIVE U Benzodiazepines Scrn NEGATIVE Urine Cocaine Screen NEGATIVE U Cannabinoids Screen NEGATIVE Ethyl Alcohol - Diagnostic Imaging Results Diagnostic Imaging Results: positive: Final report reviewed Diagnostic Imaging Results Comments: Final Report PT NAME: ELTON MCPHERSON MR#: [id number] REG ER/ED AGE: 48 CI DT/TM: 05/11/18 PCP: MIKE Smith : 1970 ATT: SEX: F ORD: Irwin Fulton MD EXAM: [id number] CT/ABPEW ([id number]) Reason: elevated bili and ammonia Procedure Date: 05/11/2018 Accession Number: [id number] / [id number] Procedure: CT - Abdomen/Pelvis W/ CPT Code: FULL RESULT: EXAM: CT ABDOMEN AND PELVIS EXAM DATE: 05/11/2018 07:58 PM. CLINICAL HISTORY: Elevated bili and ammonia. COMPARISONS: CHEST 1 VIEW 05/11/2018 5:58 PM. TECHNIQUE: Routine helical CT imaging was performed through the abdomen and pelvis. IV contrast: 100 ML ISOVUE 300. Enteric contrast: No. Reconstructions: Coronal and sagittal. In accordance with CT protocol optimization, one or more of the following dose reduction techniques were utilized for this exam: automated exposure control, adjustment of mA and/or KV based on patient size, or use of iterative reconstructive technique. FINDINGS: Lung Bases: Mild left basilar atelectasis. Liver: Normal. No masses. Gallbladder/Bile Ducts: Moderate gallbladder wall thickening. Slight luminal hyperdensity in the gallbladder. No ductal dilatation. Spleen: Normal. Pancreas: Normal. Adrenal Glands: Normal. Kidneys: Normal. No masses or hydronephrosis. Peritoneal Cavity/Bowel: Unopacified stomach and small bowel are nondistended. The appendix is normal. There is minimal stool in the colon. There is no pericolonic fat stranding. There is small volume abdominal and large volume pelvic ascites. There is no pneumoperitoneum. There are shotty retroperitoneal lymph nodes. Pelvic Organs: Bladder unremarkable. Mildly enlarged uterus including a 3.0 cm right noncalcified and 2.6 cm left calcified anterior fundal body fibroids. No la adnexal mass is identified. Vasculature: Marked cardiomegaly. Moderate contrast reflux into the IVC and hepatic veins consistent with decreased cardiac output. Small to moderate pericardial effusion. Minimal iliac artery atherosclerotic calcification. Abdominal aorta, celiac axis, SMA, and AURELIO appear widely patent as do the renal arteries. Bones: No significant abnormality. Other: Moderate generalized body wall edema. 2.9 x 5.0 x 4.5 cm right-superior periumbilical fat-containing hernia. IMPRESSION: 1. Marked cardiomegaly. Small to moderate pericardial effusion. Moderate contrast reflux into the IVC and hepatic veins consistent with decreased cardiac output. 2. Marked gallbladder wall thickening/edema. Slight gallbladder luminal hyperdensity which could reflect sludge or stones. The wall thickening may be related to generalized edema or liver disease rather than cholecystitis. 3. The liver is unremarkable in appearance other than the contrast reflux into the hepatic veins. A component of passive hepatic congestion could contribute to liver dysfunction. 4. Small abdominal and large pelvic ascites. 5. Moderate generalized body wall edema. 6. Fibroid uterus. 7. 5 cm right superior periumbilical fat-containing hernia. [facility] Human Resources Executive Assistant: Reading Radiologist: Chandrakant Morelos MD Releasing Radiologist: Chandrakant Morelos MD Released Date Time: 05/11/182032 Report 32 cc: MIKE Smith; Irwin Fulton MD Principal Auto Customize Painter Name: Chandrakant Morelos Provider ID: [email or web address] Final Report PT NAME: ELTON MCPHERSON MR#: [id number] REG ER/ED AGE: 48 CI DT/TM: 05/11/18 PCP: MIKE Smith : 1970 ATT: SEX: F ORD: Irwin Fulton MD EXAM: [id number] CT/HEADSP ([id number]) Reason: altered mentation/ unresponsive Procedure Date: 05/11/2018 Accession Number: [id number] / [id number] Procedure: CT - Head W/O Stroke Protocol CPT Code: FULL RESULT: EXAM: CT HEAD EXAM DATE: 05/11/2018 06:09 PM. CLINICAL HISTORY: Altered mentation/ unresponsive. COMPARISON: None. TECHNIQUE: Multiaxial CT images were obtained from the foramen magnum to the vertex. Reformats: Sagittal and coronal. IV contrast: None. In accordance with CT protocol optimization, one or more of the following dose reduction techniques were utilized for this exam: automated exposure control, adjustment of mA and/or KV based on patient size, or use of iterative reconstructive technique. FINDINGS: Parenchyma: No intraparenchymal hemorrhage. No evidence of mass, midline shift, or CT findings of acute infarction. There are old left frontotemporal and left occipital infarcts. Mosley-white differentiation is distinct. Extraaxial Spaces: Normal for age. No subdural or epidural collections identified. Ventricles: Normal in size and position. Sinuses and Orbits: Imaged paranasal sinuses, orbits, and mastoids show no significant abnormality. Bones: No evidence of fracture or calvarial defect. Other: None. IMPRESSION: 1. No acute intracranial abnormality. 2. 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 [facility] The call report notification system was initiated by Dr. Erik Marc at 18:17 hrs on 05/11/18. The above findings were discussed with Irwin Fulton by Dr. Erik Marc at 18:20 hrs on 05/11/18. Human Resources Executive Assistant: Reading Radiologist: Erik Marc MD Releasing Radiologist: Erik Marc MD Released Date Time: 05/11/181821 Report 21 cc: MIKE Smith; Irwin Fulton MD Principal Auto Customize Painter Name: Erik Marc Provider ID: [id number] Final Report PT NAME: ELTON MCPHERSON MR#: [id number] REG ER/ED AGE: 48 CI DT/TM: 05/11/18 PCP: MIKE Smith : 1970 ATT: SEX: F ORD: Irwin Fulton MD EXAM: [id number] XR/CXR1VW ([id number]) Reason: dyspnea/ unresponsive Procedure Date: 05/11/2018 Accession Number: [id number] / [id number] Procedure: XR - Chest 1 View X-Ray CPT Code: 40514 FULL RESULT: EXAM: CHEST RADIOGRAPHY EXAM DATE: 05/11/2018 06:08 PM. CLINICAL HISTORY: Dyspnea/ unresponsive. COMPARISON: 09/05/2017. TECHNIQUE: 1 view. FINDINGS: Lungs/Pleura: No focal opacities evident. On visualization of the left hemidiaphragm on the frontal view is likely due to overlapping structures and technique. No pleural effusion. No pneumothorax. Mediastinum: Moderate to marked cardiomegaly, as before Other: None. IMPRESSION: No acute findings. Moderate to marked cardiomegaly. [facility] Human Resources Executive Assistant: Reading Radiologist: Erik Marc MD Releasing Radiologist: Erik Marc MD Released Date Time: 05/11/181822 Report 22 cc: MIKE Smith; Irwin Fulton MD Principal Auto Customize Painter Name: Erik Marc Provider ID: [id number] - EKG Results EKG Interpreted Independently: Yes Core Measures - Anticipated LOS I expect patient to be DC'd or transferred within 96 hours.: Yes - DVT/VTE - Prophylaxis VTE/DVT Device ordered at admit?: Yes - Stroke - Rehab Assessment Rehab services assessment to be ordered?: No - AMI - Statin at Admit Aspirin Prescribed on Admit: No
[2018-05-12] MEDS: PANTOPRAZOLE 40 MG VIAL IVP SCH ×3 (00:17→16:39)
[2018-05-12] MEDS: SODIUM CHLORIDE FLUSH 0.9% 10 ML SYRINGE IVP PRN ×4 (00:17→16:39)
[2018-05-12] MEDS: SODIUM CHLORIDE FLUSH 0.9% 10 ML SYRINGE IVP SCH ×3 (00:29→16:39)
[2018-05-12 04:51] LABS: ALBUMIN 3.3 g/dL (3.2-5.5); ALBUMIN/GLOBULIN RATIO 1.1 (1.0-2.2); BILIRUBIN,TOTAL 3.9 mg/dL (0.2-1.0); CALCIUM 8.5 mg/dL (8.5-10.3); CREATININE 0.8 mg/dL (0.4-1.0); TOTAL PROTEIN 6.2 g/dL (6.7-8.2)
[2018-05-12 04:58] LABS: BASOPHILS # (AUTO) 0.1 10^3/uL (0.0-0.1); BASOPHILS % (AUTO) 1.1 %; HGB - HEMOGLOBIN 12.3 g/dL (12.0-16.0); LYMPHOCYTES # (AUTO) 0.8 10^3/uL (1.5-3.5); LYMPHOCYTES % (AUTO) 10.2 %; MEAN CORPUSCULAR HEMOGLOBIN 26.7 pg (27.0-31.0); MEAN CORPUSCULAR HGB CONC 31.4 g/dL (32.0-36.0); MEAN CORPUSCULAR VOLUME 84.9 fL (81.0-99.0); MEAN PLATELET VOLUME 7.7 fL (7.9-10.8); MONOCYTES # (AUTO) 0.4 10^3/uL (0.0-1.0); MONOCYTES % (AUTO) 5.3 %; NEUTROPHILS # (AUTO) 6.4 10^3/uL (1.5-6.6); NEUTROPHILS % (AUTO) 83.4 %; PLT - PLATELET COUNT 165 10^3/uL (130-450); RED BLOOD COUNT 4.61 10^6/uL (4.20-5.40); RED CELL DISTRIBUTION WIDTH 19.5 % (12.0-15.0); WHITE BLOOD COUNT 7.6 x10^3/uL (4.8-10.8)
[2018-05-12] MEDS ORDERED: LACTULOSE 10 GM/15 ML BOTTLE PR SCH (09:00)
[2018-05-12] MEDS ORDERED: POLYETHYLENE GLYCOL 3350 17 GM PACKET PO SCH (09:00)
[2018-05-12] MEDS: CARVEDILOL 3.125 MG TABLET PO SCH ×2 (10:49→20:07)
--- NOTE | 2018-05-12 10:49 | PROVIDER PROGRESS NOTE ---
Assessment/Plan - Problem List (1) Acute metabolic encephalopathy Assessment/Plan: This was most likley due to hyperammonemia. As ammonia level decreased from Lactulose dosing, she awoke. No signs of infection or hypotension. Monitor mental status q shift. Continue Lactulose 30 gm po bid, stop per rectum order. (2) Hyperammonemia Assessment/Plan: Elevated ammonia due to liver failure, probably worsened by passive congestion from CHF exacerbation. Continue Lactulose. I explained the serious nature of liver failure to 2 daughters at bedside and on the phone. She needs a Gas Inspector. (3) Cirrhosis of liver with ascites Qualifiers: Hepatic cirrhosis type: alcoholic cirrhosis Qualified Code(s): K70.31 - Alcoholic cirrhosis of liver with ascites Assessment/Plan: As in #2 (4) Elevated liver enzymes Assessment/Plan: Hepatitis panel has been negative in the past. This woman probably has alcoholic liver disease. But the gallbladder is inflamed on CT the abdomen. Need to monitor to see if she develops right upper quadrant pain, fever, etc. (5) Cardiomyopathy Qualifiers: Cardiomyopathy type: alcoholic Qualified Code(s): I42.6 - Alcoholic cardiomyopathy Assessment/Plan: Most likely due to alcoholic cardiomyopathy. Echo in [place], [place] on 03/30/2017: Severe LV Dysfunction with LVEF of 13%, Mild left ventricular enlargement, moderate left atrial enlargement, moderate right atrial enlargement, normal right ventricular size, normal aortic valve structures, normal tricuspid valve structures, normal pulmonic valve structures, mild mitral regurgitation, trivial pulmonic regurgitation, small pericardial effusion, upper normal PA pressures by Doppler Echo today showed LVEF of Will continue Carvedilol 3.125 bid, and resume her po Lasix, Spironolactone and Lisinopril. Monitor BMP and Mg daily whle diuresing. Monitor I's and O's and priti;y weights. Change Reg diet to low sodium diet. If she is a Full Code, she would be a candidate for defibrillator. Will try to clarify plan, obtain records from [place], where she lived until moving here in Mar 2017. (6) Acute on chronic systolic heart failure, NYHA class 3 Assessment/Plan: This may be due to dietary indiscretion or medication non-compliance or from fluid retention from recent steroids. Will restart her meds as in #4. Will have PT and OT evaluate patient tomorrow. (7) COPD (chronic obstructive pulmonary disease) Qualifiers: COPD type: unspecified COPD Qualified Code(s): J44.9 - Chronic obstructive pulmonary disease, unspecified Assessment/Plan: She is a 2 PPD smoker, trying to decrease. She was on Decadron from a recent prior ER visit. Currently no wheezing or pulmonary infiltrate by imaging. Continue prn inhaler. Will offer a Nicotine patch as she awakens. - Current Meds Current Meds: Current Medications Generic Name Dose Route Start Last Admin Trade Name Freq PRN Reason Stop Dose Admin Pantoprazole Sodium 40 mg 05/11/18 23:00 05/12/18 06:11 Protonix IVP 40 mg BIDAC BABAK Administration Sodium Chloride 10 ml 05/11/18 21:56 05/12/18 06:13 Normal Saline Flush 0.9% IVP 10 ml PRN PRN Administration NEEDED PER PROVIDER ORDERS Sodium Chloride 10 ml 05/12/18 01:00 05/12/18 00:29 Normal Saline Flush 0.9% IVP 10 ml 0100,0900,1700 BABAK Administration - Lab Result Fish Bone Diagrams: 05/12/18 04:25 05/12/18 04:25 - Additional Planning My Orders: My Active Orders 05/12/18 14:00 Lactulose [Enulose] 30 gm PO 0900,1400 05/12/18 21:00 Lisinopril [Zestril] 2.5 mg PO QPM 05/12/18 Lunch DIET [Soft Mechanical Diet] [DIET] 05/13/18 05:00 AMMONIA [CHEM] DAILYLAB BMP - BASIC METABOLIC PANEL [CHEM] DAILYLAB 05/13/18 09:00 Furosemide [Lasix] 40 mg PO DAILY Spironolactone [Aldactone] 25 mg PO DAILY 05/14/18 05:00 AMMONIA [CHEM] DAILYLAB BMP - BASIC METABOLIC PANEL [CHEM] DAILYLAB 05/15/18 05:00 AMMONIA [CHEM] DAILYLAB BMP - BASIC METABOLIC PANEL [CHEM] DAILYLAB Subjective - Subjective Patient Reports: Resting Comfortably Nursing Reports: Other (More alert, able to swallow) Objective Vital Signs: Vital Signs - 24 hr 05/11/18 05/11/18 05/11/18 17:46 18:00 18:36 Temperature 36.1 C L Heart Rate 109 H 100 99 Heart Rate [ Brachial] Heart Rate [ Monitoring electrodes] Respiratory 39 H 16 15 Rate Blood Pressure 122/112 H 94/84 H Blood Pressure [Left Brachial artery] Blood Pressure [Right Brachial artery] O2 Saturation 93 100 05/11/18 05/11/18 05/11/18 19:18 19:34 23:00 Temperature 38.0 C H Heart Rate 94 105 H Heart Rate [ Brachial] Heart Rate [ 101 H Monitoring electrodes] Respiratory 28 H 21 20 Rate Blood Pressure 111/91 H Blood Pressure 104/84 H [Left Brachial artery] Blood Pressure [Right Brachial artery] O2 Saturation 98 97 05/12/18 05/12/18 00:00 07:53 Temperature 36.9 C Heart Rate Heart Rate [ 96 88 Brachial] Heart Rate [ Monitoring electrodes] Respiratory 20 16 Rate Blood Pressure Blood Pressure 112/78 [Left Brachial artery] Blood Pressure 112/59 L [Right Brachial artery] O2 Saturation 98 93 Oxygen O2 Source Nasal cannula I&O (Last 24 Hrs): Intake and Output Totals x24h 05/10/18 05/11/18 05/12/18 23:59 23:59 23:59 Intake Total 1000 Output Total 725 1950 Balance -725 -950 General: Alert, Oriented x3, Other (Repeats words) HEENT: Mucous membr. moist/pink, Other (Edentulous) Neck: Supple, No JVD Neuro: Other (No asterixis, intermittently confused, forgetful) Cardiovascular: Regular rate, No murmurs Respiratory: No respiratory distress, Breath sounds nml Abdomen: Soft, Other (Mildly distended) Extremities: Other (Trace edema) - Results Results: Laboratory Results WBC 7.6 x10^3/uL (4.8-10.8) 05/12/18 04:25 RBC 4.61 10^6/uL (4.20-5.40) 05/12/18 04:25 Hgb 12.3 g/dL (12.0-16.0) 05/12/18 04:25 Hct 39.1 % (37.0-47.0) 05/12/18 04:25 MCV 84.9 fL (81.0-99.0) 05/12/18 04:25 MCH 26.7 pg (27.0-31.0) L 05/12/18 04:25 MCHC 31.4 g/dL (32.0-36.0) L 05/12/18 04:25 RDW 19.5 % (12.0-15.0) H 05/12/18 04:25 Plt Count 165 10^3/uL (130-450) 05/12/18 04:25 MPV 7.7 fL (7.9-10.8) L 05/12/18 04:25 Neut # (Auto) 6.4 10^3/uL (1.5-6.6) 05/12/18 04:25 Lymph # (Auto) 0.8 10^3/uL (1.5-3.5) L 05/12/18 04:25 [place] # (Auto) 0.4 10^3/uL (0.0-1.0) 05/12/18 04:25 Eos # (Auto) 0.0 10^3/uL (0.0-0.7) 05/12/18 04:25 Baso # (Auto) 0.1 10^3/uL (0.0-0.1) 05/12/18 04:25 Absolute Nucleated RBC 0.00 x10^3/uL 05/12/18 04:25 Nucleated RBC % 0.0 /100WBC 05/12/18 04:25 Manual Slide Review Indicated 05/11/18 17:56 Platelet Estimate NORMAL (130-450,000) (NORMAL) 05/11/18 17:56 Platelet Morphology NORMAL APPEARANCE (NORMAL) 05/11/18 17:56 RBC Morph Micro Appear 2+ ANISOCYTOSIS (NORMAL) 2+ POIKILOCYTOSIS (NORMAL) 05/11/18 17:56 RBC Morph Micro Appear 2+ ANISOCYTOSIS (NORMAL) 2+ POIKILOCYTOSIS (NORMAL) 05/11/18 17:56 PT 21.9 secs (9.9-12.6) H 05/11/18 17:51 INR 2.0 (0.8-1.2) H 05/11/18 17:51 Sodium 137 mmol/L (135-145) 05/12/18 04:25 Potassium 3.5 mmol/L (3.5-5.0) 05/12/18 04:25 Chloride 100 mmol/L (101-111) L 05/12/18 04:25 Carbon Dioxide 25 mmol/L (21-32) 05/12/18 04:25 Anion Gap 12.0 (6-13) 05/12/18 04:25 BUN 15 mg/dL (6-20) 05/12/18 04:25 Creatinine 0.8 mg/dL (0.4-1.0) 05/12/18 04:25 Estimated GFR (MDRD) 77 (>89) L 05/12/18 04:25 Glucose 100 mg/dL (70-100) 05/12/18 04:25 Lactic Acid 1.1 mmol/L (0.5-2.2) 05/12/18 04:25 Calcium 8.5 mg/dL (8.5-10.3) 05/12/18 04:25 Magnesium 1.7 mg/dL (1.7-2.8) 05/11/18 17:56 Total Bilirubin 3.9 mg/dL (0.2-1.0) H 05/12/18 04:25 AST 31 IU/L (10-42) 05/12/18 04:25 ALT 10 IU/L (10-60) 05/12/18 04:25 Alkaline Phosphatase 154 IU/L (42-121) H 05/12/18 04:25 Ammonia 38.5 umol/L (7-35) H 05/12/18 04:25 Troponin I < 0.04 ng/mL (<0.49) 05/11/18 17:56 B-Natriuretic Peptide 5765.00 pg/mL (5-100) H 05/12/18 04:25 Total Protein 6.2 g/dL (6.7-8.2) L 05/12/18 04:25 Albumin 3.3 g/dL (3.2-5.5) 05/12/18 04:25 Globulin 2.9 g/dL (2.1-4.2) 05/12/18 04:25 Albumin/Globulin Ratio 1.1 (1.0-2.2) 05/12/18 04:25 Lipase 19 U/L (22-51) L 05/11/18 17:56 Urine Opiates Screen POSITIVE (NEGATIVE) H 05/11/18 21:27 Ur Oxycodone Screen NEGATIVE (NEGATIVE) 05/11/18 21:27 Urine Methadone Screen NEGATIVE (NEGATIVE) 05/11/18 21:27 Ur Propoxyphene Screen NEGATIVE (NEGATIVE) 05/11/18 21:27 Ur Barbiturates Screen NEGATIVE (NEGATIVE) 05/11/18 21:27 Ur Tricyclics Screen NEGATIVE (NEGATIVE) 05/11/18 21:27 Ur Phencyclidine Scrn NEGATIVE (NEGATIVE) 05/11/18 21:27 Ur Amphetamine Screen NEGATIVE (NEGATIVE) 05/11/18 21:27 U Methamphetamines Scrn NEGATIVE (NEGATIVE) 05/11/18 21:27 U Benzodiazepines Scrn NEGATIVE (NEGATIVE) 05/11/18 21:27 Urine Cocaine Screen NEGATIVE (NEGATIVE) 05/11/18 21:27 U Cannabinoids Screen NEGATIVE (NEGATIVE) 05/11/18 21:27 Ethyl Alcohol < 5.0 mg/dL 05/11/18 17:51
[2018-05-12] MEDS: LACTULOSE 10 GM /15 ML UDC PO SCH (10:57)
[2018-05-12] MEDS ORDERED: ALBUTEROL NEB 2.5 MG/3 ML INH PRN (11:15)
[2018-05-12] MEDS ORDERED: FUROSEMIDE 40 MG TABLET PO SCH (12:00)
--- NOTE | 2018-05-12 16:52 | ADVANCE CARE PLANNING NOTE ---
Advance Care Planning - Date/Time Date: 05/12/18 Time: 16:00 - Purpose of encounter Text: To establish her wishes regarding Code status - Parties in attendance Parties in attendance: The patient, and 2 daughters and I spoke in the patient's room - Decisional capacity Decisional capacity of: Currently, she is intermittently confused. When asked if she wants to be "rescusitated if her heart stops", she was surprised at such a question. The daughters rephrased the question, and she answered "off course" she wants to be rescusutated. I told the daughters that she may be answering out of habit. I explained to all 3 of them that with a very weak liver and very weak heart, the resuscitation may not even be successful. I asked if she was ever offered a BiVentricular Pacer Defibrillator, since her heart is so weak, and she said "yes, about 5 years ago" and that she knew it would be needed "down the line". - Subjective/Patient's story Subjective/Patient's story: The patient was an alcohol abuser and Meth abuser. She moved here in March 2017, from [place], to live closer to her daughter. Her is an on the road front desk lead and is not home for long stretches, so she spends most of her time at her [facility] apartment. The daughter is not home all day to monitor her. She apparently no longer abuses drugs or alcohol. She has only seen her PCP once, in August, when she ran out of her meds. She had a Putty Remover in [place] but has not been referred to one here yet, it is pending in several weeks, at [facility]. She believes she is compliant with her meds but only takes them once a day, despite some being ordered to take bid. It is not clear if she follows a low salt and restricted fluid diet or who makes her meals. - Objective/Medical story Objective/Medical Story: She was diagnosed with alcoholic liver cirrhosis unknown when and alcoholic cardiomyopathy > 10 years ago. She had a stress test last in [place] that showed an LVEF of 12%, dilated LV and no ischemia. No other records are available regarding the plan. Yesterday she was "at her baseline" then found obtunded by the daughter in who's apartment she lives. The drug screen was neg. She is in liver fauilure with ascites and in biventricular heart failure. I described the serious prognosis of both these problems. The daughters were surprised at the poor prognosis but also did not seem alarmed when I described this. as they were rephrasing things to the patient, it appeared that they often had to do this, as if she has been confused before. When the patient stated she wanted to be resuscitated from a cardiac arrest, the daughters did not disuade her or comment at all. - Goals of Care Goals of care determinations: I will review the serious nature of her combined liver failure and heart failure with the patient and family again and order reading material for them. She and they need CHF education and she needs to be established with a Putty Remover and Grout Pump Operator after discharge. - Plan Plan: Continue to maximize medical management for cirrhosis and systolic heart failure. - Code Status Code Status: Attempt Resuscitation - Time Spent on Advance Care Planning Time spent on advance care plannin min
[2018-05-12] MEDS: LISINOPRIL 5 MG TABLET PO SCH (20:07)
[2018-05-13] MEDS: SODIUM CHLORIDE FLUSH 0.9% 10 ML SYRINGE IVP SCH ×3 (03:48→16:15)
[2018-05-13 05:12] LABS: BASOPHILS # (AUTO) 0.1 10^3/uL (0.0-0.1); EOSINOPHILS % (AUTO) 0.4 %; HGB - HEMOGLOBIN 11.6 g/dL (12.0-16.0); LYMPHOCYTES # (AUTO) 1.3 10^3/uL (1.5-3.5); LYMPHOCYTES % (AUTO) 20.5 %; MEAN CORPUSCULAR HEMOGLOBIN 26.8 pg (27.0-31.0); MEAN CORPUSCULAR HGB CONC 31.7 g/dL (32.0-36.0); MEAN CORPUSCULAR VOLUME 84.6 fL (81.0-99.0); MEAN PLATELET VOLUME 7.7 fL (7.9-10.8); MONOCYTES # (AUTO) 0.7 10^3/uL (0.0-1.0); MONOCYTES % (AUTO) 11.4 %; NEUTROPHILS # (AUTO) 4.3 10^3/uL (1.5-6.6); NEUTROPHILS % (AUTO) 66.7 %; PLT - PLATELET COUNT 156 10^3/uL (130-450); RED BLOOD COUNT 4.34 10^6/uL (4.20-5.40); RED CELL DISTRIBUTION WIDTH 19.9 % (12.0-15.0); WHITE BLOOD COUNT 6.4 x10^3/uL (4.8-10.8)
[2018-05-13 05:16] LABS: ALBUMIN/GLOBULIN RATIO 1.1 (1.0-2.2); ALKALINE PHOSPHATASE 127 IU/L (42-121); ALT ALANINE AMINOTRANSFERASE < 10 IU/L (10-60); AST ASPARTATE AMINOTRANSFERASE 22 IU/L (10-42); BILIRUBIN,TOTAL 3.3 mg/dL (0.2-1.0); BUN - BLOOD UREA NITROGEN 11 mg/dL (6-20); CALCIUM 8.5 mg/dL (8.5-10.3); CARBON DIOXIDE - CO2 31 mmol/L (21-32); CHLORIDE 98 mmol/L (101-111); CREATININE 0.8 mg/dL (0.4-1.0); GFR - MDRD 77 (>89); GLUCOSE 99 mg/dL (70-100); SODIUM 138 mmol/L (135-145); TOTAL PROTEIN 5.7 g/dL (6.7-8.2)
[2018-05-13] MEDS: PANTOPRAZOLE 40 MG VIAL IVP SCH ×2 (06:10→16:15)
[2018-05-13] MEDS: SODIUM CHLORIDE FLUSH 0.9% 10 ML SYRINGE IVP PRN ×3 (06:10→16:16)
[2018-05-13] MEDS: LACTULOSE 10 GM /15 ML UDC PO SCH ×2 (10:10→13:42)
[2018-05-13] MEDS: CARVEDILOL 3.125 MG TABLET PO SCH ×2 (10:11→21:09)
[2018-05-13] MEDS: FUROSEMIDE 40 MG TABLET PO SCH (10:12)
[2018-05-13] MEDS: SPIRONOLACTONE 25 MG TABLET PO SCH (10:12)
[2018-05-13] MEDS: POTASSIUM CHLORIDE 20 MEQ/15 ML UDC PO SCH (10:21)
--- NOTE | 2018-05-13 12:54 | PROVIDER PROGRESS NOTE ---
Assessment/Plan - Problem List (1) Acute metabolic encephalopathy Assessment/Plan: She is no longer obtunded. as at admission, but is confused and babbling. Hyperammonemia and opiate use are the likely causes. It is unclear if this is her baseline mental status. This was again explained to the daughter, Cyn today. Continue Lactulose, and plan was to titrate up until she has diarrhea, which she had this am. Will check a urinalysis for UTI, as a cause for confusion. Continue Ricketts for drainage, until her mental status hopefully improves. It was placed in the ER, but no order written. (2) Cirrhosis of liver with ascites Qualifiers: Hepatic cirrhosis type: alcoholic cirrhosis Qualified Code(s): K70.31 - Alcoholic cirrhosis of liver with ascites Assessment/Plan: Ammonia level is similar to yesterday's. Her INR was 2, indicating significant dysfunction of liver. Biliruben was 4, is down to 3. She is more confused today compared to yesterday, however. Continue Lactulose and gentle po diuresis. PT and OT evaluations today. (3) Acute on chronic systolic heart failure, NYHA class 3 Assessment/Plan: No SOB or leg edema. BNP improved from >5000 to 1500. Continue B-isaias, LUIS MIGUEL, Lasix po and Spironolactone. No empiric daily Aspirin will be started since she is auto-anticoagulated from her liver dysfunction. Monitor CMP and Mg daily. (4) Hypokalemia Assessment/Plan: Likely from diuretics. Replace and follow daily labs. (5) COPD (chronic obstructive pulmonary disease) Qualifiers: COPD type: unspecified COPD Qualified Code(s): J44.9 - Chronic obstructive pulmonary disease, unspecified Assessment/Plan: Pt has a wet cough, but clear lung [place]. I suspect this is a smokers cough. Will add Mucinex. Will recheck a CXR tomorrow. - Current Meds Current Meds: Current Medications Generic Name Dose Route Start Last Admin Trade Name Freq PRN Reason Stop Dose Admin Carvedilol 3.125 mg 05/12/18 09:00 05/13/18 10:11 Coreg PO 3.125 mg BID BABAK Administration Furosemide 40 mg 05/13/18 09:00 05/13/18 10:12 Lasix PO 40 mg DAILY BABAK Administration Lactulose 30 gm 05/12/18 14:00 05/13/18 10:10 Enulose PO 30 gm 0900,1400 BABAK Administration Lisinopril 2.5 mg 05/12/18 21:00 05/12/18 20:07 Zestril PO 2.5 mg QPM BABAK Administration Pantoprazole Sodium 40 mg 05/11/18 23:00 05/13/18 06:10 Protonix IVP 40 mg BIDAC BABAK Administration Potassium Chloride 40 meq 05/13/18 08:00 05/13/18 10:21 PO 05/16/18 08:01 40 meq DAILYWM BABAK Administration Sodium Chloride 10 ml 05/11/18 21:56 05/13/18 06:13 Normal Saline Flush 0.9% IVP 10 ml PRN PRN Administration NEEDED PER PROVIDER ORDERS Sodium Chloride 10 ml 05/12/18 01:00 05/13/18 10:13 Normal Saline Flush 0.9% IVP 10 ml 0100,0900,1700 BABAK Administration Spironolactone 25 mg 05/13/18 09:00 05/13/18 10:12 Aldactone PO 25 mg DAILY BABAK Administration - Lab Result Fish Bone Diagrams: 05/13/18 04:35 05/13/18 04:35 - Additional Planning My Orders: My Active Orders 05/12/18 14:00 Lactulose [Enulose] 30 gm PO 0900,1400 05/12/18 21:00 Lisinopril [Zestril] 2.5 mg PO QPM 05/13/18 Evaluate and Treat OT [OT] Routine Evaluate and Treat PT [PT] Routine 05/13/18 09:00 Furosemide [Lasix] 40 mg PO DAILY Spironolactone [Aldactone] 25 mg PO DAILY 05/13/18 10:58 Ricketts Discontinuation [RC] ONCE 05/14/18 05:00 AMMONIA [CHEM] DAILYLAB CBC - COMP BLD CT W/AUTO DIFF [HEME] DAILYLAB CMP [COMPREHENSIVE METABOLIC PANEL] [CHEM] DAILYLAB 05/15/18 05:00 AMMONIA [CHEM] DAILYLAB CMP [COMPREHENSIVE METABOLIC PANEL] [CHEM] DAILYLAB Subjective - Subjective Patient Reports: Other (She bables an answer that is not intelligible) Nursing Reports: Other (Cueing needed to get her from bed to commode, using a walker) Objective Vital Signs: Vital Signs - 24 hr 1105/12/18 05/12/18 15:45 20:05 20:09 Temperature 36.8 C Heart Rate 86 Heart Rate [ 86 91 Brachial] Respiratory 17 18 Rate Blood Pressure 108/79 [Left Brachial artery] Blood Pressure 104/63 [Right Brachial artery] O2 Saturation 97 05/13/18 05/13/18 05/13/18 01:22 08:00 10:05 Temperature 36.7 C 37.2 C Heart Rate 76 Heart Rate [ 82 80 86 Brachial] Respiratory 18 19 Rate Blood Pressure 108/73 [Left Brachial artery] Blood Pressure 99/85 H 101/71 [Right Brachial artery] O2 Saturation 97 93 Oxygen O2 Source Room air I&O (Last 24 Hrs): Intake and Output Totals x24h 05/11/18 05/12/18 05/13/18 23:59 23:59 23:59 Intake Total 2040 240 Output Total 725 4223 200 Balance -725 -2188 40 General: Other (Oriented to self only) HEENT: Mucous membr. moist/pink, Other (Edentulous. Icteric.) Neck: Supple, No JVD Neuro: Disoriented, Non Focal, Other (No astreixis) Cardiovascular: Regular rate, No murmurs Respiratory: No respiratory distress, Breath sounds nml Abdomen: Other (Distended, soft, non-tender) Extremities: No edema - Results Results: Laboratory Results WBC 6.4 x10^3/uL (4.8-10.8) 05/13/18 04:35 RBC 4.34 10^6/uL (4.20-5.40) 05/13/18 04:35 Hgb 11.6 g/dL (12.0-16.0) L 05/13/18 04:35 Hct 36.7 % (37.0-47.0) L 05/13/18 04:35 MCV 84.6 fL (81.0-99.0) 05/13/18 04:35 MCH 26.8 pg (27.0-31.0) L 05/13/18 04:35 MCHC 31.7 g/dL (32.0-36.0) L 05/13/18 04:35 RDW 19.9 % (12.0-15.0) H 05/13/18 04:35 Plt Count 156 10^3/uL (130-450) 05/13/18 04:35 MPV 7.7 fL (7.9-10.8) L 05/13/18 04:35 Neut # (Auto) 4.3 10^3/uL (1.5-6.6) 05/13/18 04:35 Lymph # (Auto) 1.3 10^3/uL (1.5-3.5) L 05/13/18 04:35 [place] # (Auto) 0.7 10^3/uL (0.0-1.0) 05/13/18 04:35 Eos # (Auto) 0.0 10^3/uL (0.0-0.7) 05/13/18 04:35 Baso # (Auto) 0.1 10^3/uL (0.0-0.1) 05/13/18 04:35 Absolute Nucleated RBC 0.01 x10^3/uL 05/13/18 04:35 Nucleated RBC % 0.1 /100WBC 05/13/18 04:35 Manual Slide Review Indicated 05/11/18 17:56 Platelet Estimate NORMAL (130-450,000) (NORMAL) 05/11/18 17:56 Platelet Morphology NORMAL APPEARANCE (NORMAL) 05/11/18 17:56 RBC Morph Micro Appear 2+ ANISOCYTOSIS (NORMAL) 2+ POIKILOCYTOSIS (NORMAL) 05/11/18 17:56 RBC Morph Micro Appear 2+ ANISOCYTOSIS (NORMAL) 2+ POIKILOCYTOSIS (NORMAL) 05/11/18 17:56 PT 21.9 secs (9.9-12.6) H 05/11/18 17:51 INR 2.0 (0.8-1.2) H 05/11/18 17:51 Sodium 138 mmol/L (135-145) 05/13/18 04:35 Potassium 2.9 mmol/L (3.5-5.0) L 05/13/18 04:35 Chloride 98 mmol/L (101-111) L 05/13/18 04:35 Carbon Dioxide 31 mmol/L (21-32) 05/13/18 04:35 Anion Gap 9.0 (6-13) 05/13/18 04:35 BUN 11 mg/dL (6-20) 05/13/18 04:35 Creatinine 0.8 mg/dL (0.4-1.0) 05/13/18 04:35 Estimated GFR (MDRD) 77 (>89) L 05/13/18 04:35 Glucose 99 mg/dL (70-100) 05/13/18 04:35 Lactic Acid 1.1 mmol/L (0.5-2.2) 05/12/18 04:25 Calcium 8.5 mg/dL (8.5-10.3) 05/13/18 04:35 Magnesium 1.7 mg/dL (1.7-2.8) 05/11/18 17:56 Total Bilirubin 3.3 mg/dL (0.2-1.0) H 05/13/18 04:35 AST 22 IU/L (10-42) 05/13/18 04:35 ALT < 10 IU/L (10-60) L 05/13/18 04:35 Alkaline Phosphatase 127 IU/L (42-121) H 05/13/18 04:35 Ammonia 39.1 umol/L (7-35) H 05/13/18 04:35 Troponin I < 0.04 ng/mL (<0.49) 05/11/18 17:56 B-Natriuretic Peptide 1599 pg/mL (5-100) H 05/13/18 04:35 Total Protein 5.7 g/dL (6.7-8.2) L 05/13/18 04:35 Albumin 3.0 g/dL (3.2-5.5) L 05/13/18 04:35 Globulin 2.7 g/dL (2.1-4.2) 05/13/18 04:35 Albumin/Globulin Ratio 1.1 (1.0-2.2) 05/13/18 04:35 Lipase 19 U/L (22-51) L 05/11/18 17:56 Urine Opiates Screen POSITIVE (NEGATIVE) H 05/11/18 21:27 Ur Oxycodone Screen NEGATIVE (NEGATIVE) 05/11/18 21:27 Urine Methadone Screen NEGATIVE (NEGATIVE) 05/11/18 21:27 Ur Propoxyphene Screen NEGATIVE (NEGATIVE) 05/11/18 21:27 Ur Barbiturates Screen NEGATIVE (NEGATIVE) 05/11/18 21:27 Ur Tricyclics Screen NEGATIVE (NEGATIVE) 05/11/18 21:27 Ur Phencyclidine Scrn NEGATIVE (NEGATIVE) 05/11/18 21:27 Ur Amphetamine Screen NEGATIVE (NEGATIVE) 05/11/18 21:27 U Methamphetamines Scrn NEGATIVE (NEGATIVE) 05/11/18 21:27 U Benzodiazepines Scrn NEGATIVE (NEGATIVE) 05/11/18 21:27 Urine Cocaine Screen NEGATIVE (NEGATIVE) 05/11/18 21:27 U Cannabinoids Screen NEGATIVE (NEGATIVE) 05/11/18 21:27 Ethyl Alcohol < 5.0 mg/dL 05/11/18 17:51
[2018-05-13 16:57] LABS: GLUCOSE, URINE (UA) NEGATIVE (NEGATIVE); KETONES,URINE (UA) NEGATIVE (NEGATIVE); LEUKOCYTE ESTERASE, URINE TRACE (NEGATIVE); NITRITE,URINE NEGATIVE (NEGATIVE); OCCULT BLOOD,URINE LARGE (NEGATIVE); PH,URINE 6.5 PH (5.0-7.5); PROTEIN,URINE 30 mg/dL (NEGATIVE); UROBILINOGEN,URINE 4 E.U./dL (NORMAL)
[2018-05-13 17:00] LABS: BILIRUBIN,URINE NEGATIVE (NEGATIVE); CLARITY,URINE CLOUDY (CLEAR)
[2018-05-13 17:05] LABS: ICTOTEST,URINE POSITIVE
[2018-05-13 17:08] LABS: RBC,URINE TNTC /HPF (0-5); SQUAMOUS EPITHELIAL CELL,UR FEW Squamous (<= Few)
[2018-05-13 17:09] LABS: BACTERIA,URINE Rare /HPF (None Seen)
[2018-05-13] MEDS: LISINOPRIL 5 MG TABLET PO SCH (21:09)
[2018-05-13] MEDS: guaiFENesin 600 MG TABLET PO SCH (21:11)
[2018-05-14] MEDS: SODIUM CHLORIDE FLUSH 0.9% 10 ML SYRINGE IVP SCH ×3 (00:18→15:52)
[2018-05-14 05:21] LABS: BASOPHILS % (AUTO) 0.3 %; EOSINOPHILS # (AUTO) 0.1 10^3/uL (0.0-0.7); EOSINOPHILS % (AUTO) 1.4 %; HGB - HEMOGLOBIN 12.1 g/dL (12.0-16.0); LYMPHOCYTES # (AUTO) 1.5 10^3/uL (1.5-3.5); LYMPHOCYTES % (AUTO) 21.4 %; MEAN CORPUSCULAR HEMOGLOBIN 26.7 pg (27.0-31.0); MEAN CORPUSCULAR HGB CONC 31.6 g/dL (32.0-36.0); MEAN CORPUSCULAR VOLUME 84.6 fL (81.0-99.0); MEAN PLATELET VOLUME 7.8 fL (7.9-10.8); MONOCYTES # (AUTO) 0.7 10^3/uL (0.0-1.0); MONOCYTES % (AUTO) 10.1 %; NEUTROPHILS # (AUTO) 4.7 10^3/uL (1.5-6.6); NEUTROPHILS % (AUTO) 66.8 %; PLT - PLATELET COUNT 154 10^3/uL (130-450); RED BLOOD COUNT 4.54 10^6/uL (4.20-5.40); RED CELL DISTRIBUTION WIDTH 19.7 % (12.0-15.0)
[2018-05-14 05:34] LABS: ALBUMIN 3.3 g/dL (3.2-5.5); ALBUMIN/GLOBULIN RATIO 1.2 (1.0-2.2); ALKALINE PHOSPHATASE 118 IU/L (42-121); ALT ALANINE AMINOTRANSFERASE < 10 IU/L (10-60); AST ASPARTATE AMINOTRANSFERASE 24 IU/L (10-42); BILIRUBIN,TOTAL 3.1 mg/dL (0.2-1.0); BUN - BLOOD UREA NITROGEN 8 mg/dL (6-20); CALCIUM 8.3 mg/dL (8.5-10.3); CARBON DIOXIDE - CO2 27 mmol/L (21-32); CHLORIDE 96 mmol/L (101-111); CREATININE 0.8 mg/dL (0.4-1.0); GFR - MDRD 77 (>89); GLUCOSE 158 mg/dL (70-100); SODIUM 132 mmol/L (135-145)
[2018-05-14] MEDS: SODIUM CHLORIDE FLUSH 0.9% 10 ML SYRINGE IVP PRN ×2 (07:04→15:52)
[2018-05-14] MEDS: PANTOPRAZOLE 40 MG VIAL IVP SCH ×2 (07:04→15:52)
[2018-05-14] MEDS: SPIRONOLACTONE 25 MG TABLET PO SCH (08:37)
[2018-05-14] MEDS: guaiFENesin 600 MG TABLET PO SCH ×2 (08:37→20:53)
[2018-05-14] MEDS: FUROSEMIDE 40 MG TABLET PO SCH (08:37)
[2018-05-14] MEDS: LACTULOSE 10 GM /15 ML UDC PO SCH ×2 (08:37→13:30)
[2018-05-14] MEDS: CARVEDILOL 3.125 MG TABLET PO SCH ×2 (08:37→20:51)
[2018-05-14] MEDS: POTASSIUM CHLORIDE 20 MEQ/15 ML UDC PO SCH (08:38)
--- NOTE | 2018-05-14 08:52 | XRAY Report ---
Reason: Cough, smoker Procedure Date: 05/14/2018 Accession Number: [id number] / [id number] Procedure: XR - Chest 1 View X-Ray CPT Code: 90762 FULL RESULT: EXAM: CHEST RADIOGRAPHY EXAM DATE: 05/14/2018 08:01 AM. CLINICAL HISTORY: Cough, smoker. COMPARISON: CHEST 1 VIEW 05/11/2018 5:58 PM CHEST 2 VIEW 09/05/2017 5:15 PM. TECHNIQUE: 1 view. FINDINGS: Lungs/Pleura: No focal opacities evident. No pleural effusion. No pneumothorax. Mediastinum: Moderate to marked globular enlargement of the cardiac silhouette as before. Other: None. IMPRESSION: No radiographically apparent acute abnormality in the chest. No significant change from priors. RADIA
--- NOTE | 2018-05-14 13:33 | PROVIDER PROGRESS NOTE ---
Assessment/Plan - Problem List (1) Acute metabolic encephalopathy Assessment/Plan: Patient is now alert and answers yes and no but cannot elaborate Patients daughter states this is not her baseline Hyperammonemia and opiate use are the likely causes Continue Lactulose UA negative, CXR negative Improving but not at her baseline will continue lactulose and monitor it is possible that this could be patients new baseline Will consider MRI if not improving PT evaluated patient and patient does not need rehab (2) Cirrhosis of liver with ascites Qualifiers: Hepatic cirrhosis type: alcoholic cirrhosis Qualified Code(s): K70.31 - Alc oholic cirrhosis of liver with ascites Assessment/Plan: Ammonia level is improving slowly. Her INR was 2, indicating significant dysfunction of liver. Bili improving down to 3.1 Improving slowly Continue Lactulose, aldactone and lasix Start rifaximin (3) Acute on chronic systolic heart failure, NYHA class 3 Assessment/Plan: No SOB or leg edema. EF less than 20% previously was on hospice in [place] but graduated from hospice BNP improved from >5000 to 3554 Continue B-isaias, LUIS MIGUEL, Lasix po and Spironolactone. No empiric daily Aspirin will be started since she is auto-anticoagulated from her liver dysfunction. Monitor CMP and Mg daily. Stable (4) Hypokalemia Assessment/Plan: Likely from diuretics. Replace and follow daily labs. K 3.0 today (5) COPD (chronic obstructive pulmonary disease) Qualifiers: COPD type: unspecified COPD Qualified Code(s): J44.9 - Chronic obstructive pulmonary disease, unspecified Assessment/Plan: Pt has a wet cough, but clear lung [place]. Suspect this is a smokers cough. Continue Mucinex. CXR negative - Current Meds Current Meds: Current Medications Generic Name Dose Route Start Last Admin Trade Name Freq PRN Reason Stop Dose Admin Carvedilol 3.125 mg 05/12/18 09:00 05/14/18 08:37 Coreg PO 3.125 mg BID BABAK Administration Furosemide 40 mg 05/13/18 09:00 05/14/18 08:37 Lasix PO 40 mg DAILY BABAK Administration Guaifenesin 600 mg 05/13/18 21:00 05/14/18 08:37 Mucinex PO 600 mg BID BABAK Administration Lactulose 30 gm 05/12/18 14:00 05/14/18 08:37 Enulose PO 30 gm 0900,1400 BABAK Administration Lisinopril 2.5 mg 05/12/18 21:00 05/13/18 21:09 Zestril PO 2.5 mg QPM BABAK Administration Pantoprazole Sodium 40 mg 05/11/18 23:00 05/14/18 07:04 Protonix IVP 40 mg BIDAC BABAK Administration Potassium Chloride 40 meq 05/13/18 08:00 05/14/18 08:38 PO 05/16/18 08:01 40 meq DAILYWM BABAK Administration Sodium Chloride 10 ml 05/11/18 21:56 05/14/18 07:04 Normal Saline Flush 0.9% IVP 30 ml PRN PRN Administration NEEDED PER PROVIDER ORDERS Sodium Chloride 10 ml 05/12/18 01:00 05/14/18 08:37 Normal Saline Flush 0.9% IVP 10 ml 0100,0900,1700 BABAK Administration Spironolactone 25 mg 05/13/18 09:00 05/14/18 08:37 Aldactone PO 25 mg DAILY BABAK Administration - Lab Result Lab results reviewed: Yes Fish Bone Diagrams: 05/14/18 05:05 05/14/18 05:05 - Diagnostic Imaging Results Diagnostic Imaging Results: Final report reviewed - Additional Planning Condition/Complexity: Guarded Consult/Specialty: PT Plan Discussed with:: Patient Time Spent: 31-60 minutes Subjective - Subjective Patient Reports: Other (She states she feels fine but cannot elaborate. she could not explain why she was here or what is going on. She did know she has CHF. She denies any chest pain, SOB or abdominal pain.) Nursing Reports: Confused Objective Vital Signs: Vital Signs - 24 hr 05/13/18 05/13/18 05/14/18 16:20 21:00 00:19 Temperature 36.6 C 37.1 C 36.9 C Heart Rate Heart Rate [ Activity] Heart Rate [ 89 89 91 Brachial] Respiratory 20 15 20 Rate Blood Pressure 107/88 H [Left Brachial artery] Blood Pressure 125/97 H 109/80 [Right Brachial artery] O2 Saturation 96 96 97 O2 Saturation [ With Activity] 05/14/18 05/14/18 05/14/18 05:14 08:00 12:53 Temperature 37.2 C 37.4 C Heart Rate 90 Heart Rate [ 98 Activity] Heart Rate [ 82 85 Brachial] Respiratory 18 20 Rate Blood Pressure [Left Brachial artery] Blood Pressure 101/69 117/85 H [Right Brachial artery] O2 Saturation 97 98 O2 Saturation [ 95 With Activity] Oxygen O2 Source [With Activity] Room air O2 Source Room air I&O (Last 24 Hrs): Intake and Output Totals x24h 05/12/18 05/13/18 05/14/18 23:59 23:59 23:59 Intake Total 2040 1240 290 Output Total 4225 1000 150 Balance -2185 240 140 General: Alert, No acute distress, Other (Oriented x 1) HEENT: Atraumatic, PERRLA, EOMI, Mucous membr. moist/pink Neck: Supple, No JVD, No thyromegaly, +2 carotid pulse wo bruit, No LAD Lymphatic: no adenopathy Neuro: Alert, Non Focal, CN 2-12 Grossly Intact Cardiovascular: Regular rate, Normal S1, Normal S2, No murmurs Respiratory: Chest non-tender, No respiratory distress, Breath sounds nml Abdomen: Normal bowel sounds, Soft, No tenderness, No hepatospenomegaly Extremities: No clubbing, No cyanosis, No edema, Normal pulses Skin: No rashes, No breakdown - Results Results: Laboratory Results WBC 7.0 x10^3/uL (4.8-10.8) 05/14/18 05:05 RBC 4.54 10^6/uL (4.20-5.40) 05/14/18 05:05 Hgb 12.1 g/dL (12.0-16.0) 05/14/18 05:05 Hct 38.4 % (37.0-47.0) 05/14/18 05:05 MCV 84.6 fL (81.0-99.0) 05/14/18 05:05 MCH 26.7 pg (27.0-31.0) L 05/14/18 05:05 MCHC 31.6 g/dL (32.0-36.0) L 05/14/18 05:05 RDW 19.7 % (12.0-15.0) H 05/14/18 05:05 Plt Count 154 10^3/uL (130-450) 05/14/18 05:05 MPV 7.8 fL (7.9-10.8) L 05/14/18 05:05 Neut # (Auto) 4.7 10^3/uL (1.5-6.6) 05/14/18 05:05 Lymph # (Auto) 1.5 10^3/uL (1.5-3.5) 05/14/18 05:05 [place] # (Auto) 0.7 10^3/uL (0.0-1.0) 05/14/18 05:05 Eos # (Auto) 0.1 10^3/uL (0.0-0.7) 05/14/18 05:05 Baso # (Auto) 0.0 10^3/uL (0.0-0.1) 05/14/18 05:05 Absolute Nucleated RBC 0.01 x10^3/uL 05/14/18 05:05 Nucleated RBC % 0.1 /100WBC 05/14/18 05:05 Manual Slide Review Indicated 05/11/18 17:56 Platelet Estimate NORMAL (130-450,000) (NORMAL) 05/11/18 17:56 Platelet Morphology NORMAL APPEARANCE (NORMAL) 05/11/18 17:56 RBC Morph Micro Appear 2+ ANISOCYTOSIS (NORMAL) 2+ POIKILOCYTOSIS (NORMAL) 05/11/18 17:56 RBC Morph Micro Appear 2+ ANISOCYTOSIS (NORMAL) 2+ POIKILOCYTOSIS (NORMAL) 05/11/18 17:56 PT 21.9 secs (9.9-12.6) H 05/11/18 17:51 INR 2.0 (0.8-1.2) H 05/11/18 17:51 Sodium 132 mmol/L (135-145) L 05/14/18 05:05 Potassium 3.0 mmol/L (3.5-5.0) L 05/14/18 05:05 Chloride 96 mmol/L (101-111) L 05/14/18 05:05 Carbon Dioxide 27 mmol/L (21-32) 05/14/18 05:05 Anion Gap 9.0 (6-13) 05/14/18 05:05 BUN 8 mg/dL (6-20) 05/14/18 05:05 Creatinine 0.8 mg/dL (0.4-1.0) 05/14/18 05:05 Estimated GFR (MDRD) 77 (>89) L 05/14/18 05:05 Glucose 158 mg/dL (70-100) H 05/14/18 05:05 Lactic Acid 1.1 mmol/L (0.5-2.2) 05/12/18 04:25 Calcium 8.3 mg/dL (8.5-10.3) L 05/14/18 05:05 Magnesium 1.5 mg/dL (1.7-2.8) L 05/13/18 04:35 Total Bilirubin 3.1 mg/dL (0.2-1.0) H 05/14/18 05:05 AST 24 IU/L (10-42) 05/14/18 05:05 ALT < 10 IU/L (10-60) L 05/14/18 05:05 Alkaline Phosphatase 118 IU/L (42-121) 05/14/18 05:05 Ammonia 38.5 umol/L (7-35) H 05/14/18 05:05 Troponin I < 0.04 ng/mL (<0.49) 05/11/18 17:56 B-Natriuretic Peptide 3554 pg/mL (5-100) H 05/14/18 05:05 Total Protein 6.0 g/dL (6.7-8.2) L 05/14/18 05:05 Albumin 3.3 g/dL (3.2-5.5) 05/14/18 05:05 Globulin 2.7 g/dL (2.1-4.2) 05/14/18 05:05 Albumin/Globulin Ratio 1.2 (1.0-2.2) 05/14/18 05:05 Lipase 19 U/L (22-51) L 05/11/18 17:56 Urine Color YELLOW 05/13/18 16:48 Urine Clarity CLOUDY (CLEAR) 05/13/18 16:48 Urine pH 6.5 PH (5.0-7.5) 05/13/18 16:48 Ur Specific [place] 1.020 (1.002-1.030) 05/13/18 16:48 Urine Protein 30 mg/dL (NEGATIVE) H 05/13/18 16:48 Urine Glucose (UA) NEGATIVE mg/dL (NEGATIVE) 05/13/18 16:48 Urine Ketones NEGATIVE mg/dL (NEGATIVE) 05/13/18 16:48 Urine Occult Blood LARGE (NEGATIVE) H 05/13/18 16:48 Urine Nitrite NEGATIVE (NEGATIVE) 05/13/18 16:48 Urine Bilirubin NEGATIVE (NEGATIVE) 05/13/18 16:48 Urine Urobilinogen 4 E.U./dL (NORMAL) H 05/13/18 16:48 Ur Leukocyte Esterase TRACE (NEGATIVE) H 05/13/18 16:48 Urine RBC TNTC /HPF (0-5) H 05/13/18 16:48 Urine WBC 0-3 /HPF (0-5) 05/13/18 16:48 Ur Squamous Epith Cells FEW Squamous (<= Few) 05/13/18 16:48 Urine Bacteria Rare /HPF (None Seen) 05/13/18 16:48 Urine Culture Comments INDICATED 05/13/18 16:48 Urine Opiates Screen POSITIVE (NEGATIVE) H 05/11/18 21:27 Ur Oxycodone Screen NEGATIVE (NEGATIVE) 05/11/18 21:27 Urine Methadone Screen NEGATIVE (NEGATIVE) 05/11/18 21:27 Ur Propoxyphene Screen NEGATIVE (NEGATIVE) 05/11/18 21:27 Ur Barbiturates Screen NEGATIVE (NEGATIVE) 05/11/18 21:27 Ur Tricyclics Screen NEGATIVE (NEGATIVE) 05/11/18 21:27 Ur Phencyclidine Scrn NEGATIVE (NEGATIVE) 05/11/18 21:27 Ur Amphetamine Screen NEGATIVE (NEGATIVE) 05/11/18 21:27 U Methamphetamines Scrn NEGATIVE (NEGATIVE) 05/11/18 21:27 U Benzodiazepines Scrn NEGATIVE (NEGATIVE) 05/11/18 21:27 Urine Cocaine Screen NEGATIVE (NEGATIVE) 05/11/18 21:27 U Cannabinoids Screen NEGATIVE (NEGATIVE) 05/11/18 21:27 Ethyl Alcohol < 5.0 mg/dL 05/11/18 17:51 ABX Reporting Has patient been on IV antibiotics over the past 48 hours?: Yes Current Medications - Current Medications Current Medications: Active Medications Albuterol () 2.5 mg INH RTQ4H PRN PRN Reason: Wheezing Carvedilol (Coreg) 3.125 mg PO BID [facility] Last Admin: 05/14/18 08:37 Dose: 3.125 mg Furosemide (Lasix) 40 mg PO DAILY [facility] Last Admin: 05/14/18 08:37 Dose: 40 mg Guaifenesin (Mucinex) 600 mg PO BID [facility] Last Admin: 05/14/18 08:37 Dose: 600 mg Lactulose (Enulose) 30 gm PO 0900,1400 [facility] Last Admin: 05/14/18 13:30 Dose: 30 gm Lisinopril (Zestril) 2.5 mg PO QPM [facility] Last Admin: 05/13/18 21:09 Dose: 2.5 mg Pantoprazole Sodium (Protonix) 40 mg IVP BIDAC [facility] Last Admin: 05/14/18 07:04 Dose: 40 mg Potassium Chloride () 40 meq PO DAILYWM [facility] Stop: 05/16/18 08:01 Last Admin: 05/14/18 08:38 Dose: 40 meq Rifaximin (Xifaxan) 550 mg PO BID [facility] Sodium Chloride (Normal Saline Flush 0.9%) 10 ml IVP PRN PRN PRN Reason: NEEDED PER PROVIDER ORDERS Last Admin: 05/14/18 07:04 Dose: 30 ml Sodium Chloride (Normal Saline Flush 0.9%) 10 ml IVP 0100,0900,1700 [facility] Last Admin: 05/14/18 08:37 Dose: 10 ml Spironolactone (Aldactone) 25 mg PO DAILY [facility] Last Admin: 05/14/18 08:37 Dose: 25 mg Aspirin [Adult Low Dose Aspirin EC] 81 mg PO DAILYWM 09/05/17 Carvedilol 3.125 mg PO BID 09/05/17 Digoxin 0.125 mg PO DAILY 09/05/17 Folic Acid 1 mg PO DAILY 09/05/17 Furosemide 20 mg PO DAILY 09/05/17 Lisinopril 2.5 mg PO DAILY 09/05/17 Spironolactone 12.5 mg PO DAILY 09/05/17 Albuterol Sulf [Ventolin Hfa Inhaler] 2 puffs INH Q4HR PRN 05/12/18 Ergocalciferol (Vitamin D2) [Drisdol] 50,000 units PO Q7D 05/12/18 Fluticasone/Vilanterol [Breo Ellipta 100-25 Mcg INH] 1 puffs INH DAILY 05/12/18 Ipratropium [Atrovent] 0.5 mg INH RTTID 05/12/18 Ipratropium/Albuterol [Duoneb] 3 ml INH Q4H PRN 05/12/18 Senna [Senokot] 8.6 mg PO DAILY PRN 05/12/18 Thiamine [Vitamin B-1] 100 mg PO DAILY 05/12/18
[2018-05-14] MEDS ORDERED: TEMAZEPAM 7.5 MG CAPSULE PO PRN (20:38)
[2018-05-14] MEDS: LISINOPRIL 5 MG TABLET PO SCH (20:51)
[2018-05-14] MEDS: rifAXIMin 550 MG TABLET PO SCH (20:52)
[2018-05-15] MEDS: SODIUM CHLORIDE FLUSH 0.9% 10 ML SYRINGE IVP SCH ×4 (00:02→19:39)
[2018-05-15 05:44] LABS: ALBUMIN 3.4 g/dL (3.2-5.5); ALBUMIN/GLOBULIN RATIO 1.3 (1.0-2.2); ALKALINE PHOSPHATASE 131 IU/L (42-121); ALT ALANINE AMINOTRANSFERASE < 10 IU/L (10-60); AST ASPARTATE AMINOTRANSFERASE 20 IU/L (10-42); BILIRUBIN,TOTAL 2.6 mg/dL (0.2-1.0); BUN - BLOOD UREA NITROGEN 6 mg/dL (6-20); CALCIUM 8.7 mg/dL (8.5-10.3); CARBON DIOXIDE - CO2 28 mmol/L (21-32); CHLORIDE 100 mmol/L (101-111); CREATININE 0.6 mg/dL (0.4-1.0); GFR - MDRD 107 (>89); GLUCOSE 99 mg/dL (70-100); SODIUM 135 mmol/L (135-145); TOTAL PROTEIN 6.1 g/dL (6.7-8.2)
[2018-05-15] MEDS: PANTOPRAZOLE 40 MG VIAL IVP SCH ×2 (06:27→16:40)
[2018-05-15] MEDS: SODIUM CHLORIDE FLUSH 0.9% 10 ML SYRINGE IVP PRN (06:27)
[2018-05-15] MEDS: LACTULOSE 10 GM /15 ML UDC PO SCH ×2 (09:54→14:55)
[2018-05-15] MEDS: SPIRONOLACTONE 25 MG TABLET PO SCH (09:54)
[2018-05-15] MEDS: guaiFENesin 600 MG TABLET PO SCH ×2 (09:54→21:13)
[2018-05-15] MEDS: rifAXIMin 550 MG TABLET PO SCH ×2 (09:55→21:13)
[2018-05-15] MEDS: FUROSEMIDE 40 MG TABLET PO SCH (09:55)
[2018-05-15] MEDS: CARVEDILOL 3.125 MG TABLET PO SCH ×2 (09:55→21:16)
[2018-05-15] MEDS: POTASSIUM CHLORIDE 20 MEQ/15 ML UDC PO SCH (09:56)
--- NOTE | 2018-05-15 17:40 | PROVIDER PROGRESS NOTE ---
Assessment/Plan - Problem List (1) Acute metabolic encephalopathy Assessment/Plan: The patient continues to improve and is better able to answer questions today. The patient's daughter states that she is not completely back to her baseline but is getting closer and closer every day. Hyperammonemia and opiate use are the likely causes Continue Lactulose And rifaximin UA negative, CXR negative Patient appears to be getting closer to her baseline mental status and it does not appear that she is going to need an MRI. It appears that likely most of her symptoms were secondary to hepatic encephalopathy and now that her pneumonia is improved back to normal her mental status is also improving but not quite back at baseline. I expect that the patient will likely be able to be discharged home tomorrow with continued lactulose and rifaximin at home. PT evaluated patient and patient does not need rehab (2) Cirrhosis of liver with ascites Qualifiers: Hepatic cirrhosis type: alcoholic cirrhosis Qualified Code(s): K70.31 - Alcoholic cirrhosis of liver with ascites Assessment/Plan: Ammonia level is now normal. Her INR was 2, indicating significant dysfunction of liver. Bili improving down to 2.6 Continue Lactulose, aldactone, lasix and rifaximin The patient's hepatic encephalopathy appears to be resolving and patient will likely be able to go home tomorrow. (3) Acute on chronic systolic heart failure, NYHA class 3 Assessment/Plan: No SOB or leg edema. EF less than 20% previously was on hospice in [place] but graduated from hospice BNP improved from >5000 to 3921 Continue B-isaias, LUIS MIGUEL, Lasix po and Spironolactone. No empiric daily Aspirin will be started since she is auto-anticoagulated from her liver dysfunction. Monitor CMP and Mg daily. Stable (4) Hypokalemia Assessment/Plan: Likely from diuretics. Replace and follow daily labs. K 3.4today (5) COPD (chronic obstructive pulmonary disease) Qualifiers: COPD type: unspecified COPD Qualified Code(s): J44.9 - Chronic obstructive pulmonary disease, unspecified Assessment/Plan: Pt has a wet cough, but clear lung [place]. Suspect this is a smokers cough. Continue Mucinex. CXR negative - Current Meds Current Meds: Current Medications Generic Name Dose Route Start Last Admin Trade Name Freq PRN Reason Stop Dose Admin Carvedilol 3.125 mg 05/12/18 09:00 05/15/18 09:55 Coreg PO 3.125 mg BID BABAK Administration Furosemide 40 mg 05/13/18 09:00 05/15/18 09:55 Lasix PO 40 mg DAILY BABAK Administration Guaifenesin 600 mg 05/13/18 21:00 05/15/18 09:54 Mucinex PO 600 mg BID BABAK Administration Lactulose 30 gm 05/12/18 14:00 05/15/18 14:55 Enulose PO 30 gm 0900,1400 BABAK Administration Lisinopril 2.5 mg 05/12/18 21:00 05/14/18 20:51 Zestril PO 2.5 mg QPM BABAK Administration Potassium Chloride 40 meq 05/13/18 08:00 05/15/18 09:56 PO 05/16/18 08:01 40 meq DAILYWM BABAK Administration Rifaximin 550 mg 05/14/18 21:00 05/15/18 09:55 Xifaxan PO 550 mg BID BABAK Administration Sodium Chloride 10 ml 05/11/18 21:56 05/15/18 06:27 Normal Saline Flush 0.9% IVP 10 ml PRN PRN Administration NEEDED PER PROVIDER ORDERS Sodium Chloride 10 ml 05/12/18 01:00 05/15/18 09:57 Normal Saline Flush 0.9% IVP 10 ml 0100,0900,1700 BABAK Administration Spironolactone 25 mg 05/13/18 09:00 05/15/18 09:54 Aldactone PO 25 mg DAILY BABAK Administration - Lab Result Lab results reviewed: Yes Fish Bone Diagrams: 05/14/18 05:05 05/15/18 05:05 - Diagnostic Imaging Results Diagnostic Imaging Results: Final report reviewed - Additional Planning Condition/Complexity: Improved My Orders: My Active Orders 05/14/18 21:00 rifAXIMin [Xifaxan] 550 mg PO BID 05/16/18 07:00 Pantoprazole [Protonix] 40 mg PO QDAC Consult/Specialty: PT Plan Discussed with:: Patient, Family Time Spent: 31-60 minutes Subjective - Subjective Patient Reports: Other (Patient is more alert this morning and answering questions more appropriately. She is still a little confused at times. According to the patient's daughter she is not quite back to her baseline. The patient denies any fevers or chills. She states her cough is better. She derick es any shortness of breath or increased lower extremity edema.) Nursing Reports: No Complaints Objective Vital Signs: Vital Signs - 24 hr 05/14/18 05/15/18 05/15/18 23:31 08:00 15:48 Temperature 37.0 C 36.4 C L 37.2 C Heart Rate [ 81 74 92 Brachial] Respiratory 18 20 19 Rate Blood Pressure 101/68 111/83 H 109/78 [Right Brachial artery] O2 Saturation 98 98 100 Oxygen O2 Source [With Activity] Room air O2 Source Room air I&O (Last 24 Hrs): Intake and Output Totals x24h 05/13/18 05/14/18 05/15/18 23:59 23:59 23:59 Intake Total 1240 1515 480 Output Total 1000 1995 Balance 240 -480 480 General: Alert, Cooperative, No acute distress, Other (Oriented x 2) HEENT: Atraumatic, PERRLA, EOMI, Mucous membr. moist/pink Neck: Supple, No JVD, No thyromegaly, +2 carotid pulse wo bruit, No LAD Lymphatic: no adenopathy Neuro: Alert, Non Focal, CN 2-12 Grossly Intact Cardiovascular: Regular rate, Normal S1, Normal S2 Respiratory: Chest non-tender, No respiratory distress, Breath sounds nml Abdomen: Normal bowel sounds, Soft, No tenderness, No hepatospenomegaly, Other (Distended) Extremities: No clubbing, No cyanosis, No edema, Normal pulses Skin: No rashes, No breakdown - Results Results: Laboratory Results WBC 7.0 x10^3/uL (4.8-10.8) 05/14/18 05:05 RBC 4.54 10^6/uL (4.20-5.40) 05/14/18 05:05 Hgb 12.1 g/dL (12.0-16.0) 05/14/18 05:05 Hct 38.4 % (37.0-47.0) 05/14/18 05:05 MCV 84.6 fL (81.0-99.0) 05/14/18 05:05 MCH 26.7 pg (27.0-31.0) L 05/14/18 05:05 MCHC 31.6 g/dL (32.0-36.0) L 05/14/18 05:05 RDW 19.7 % (12.0-15.0) H 05/14/18 05:05 Plt Count 154 10^3/uL (130-450) 05/14/18 05:05 MPV 7.8 fL (7.9-10.8) L 05/14/18 05:05 Neut # (Auto) 4.7 10^3/uL (1.5-6.6) 05/14/18 05:05 Lymph # (Auto) 1.5 10^3/uL (1.5-3.5) 05/14/18 05:05 Sargent # (Auto) 0.7 10^3/uL (0.0-1.0) 05/14/18 05:05 Eos # (Auto) 0.1 10^3/uL (0.0-0.7) 05/14/18 05:05 Baso # (Auto) 0.0 10^3/uL (0.0-0.1) 05/14/18 05:05 Absolute Nucleated RBC 0.01 x10^3/uL 05/14/18 05:05 Nucleated RBC % 0.1 /100WBC 05/14/18 05:05 Manual Slide Review Indicated 05/11/18 17:56 Platelet Estimate NORMAL (130-450,000) (NORMAL) 05/11/18 17:56 Platelet Morphology NORMAL APPEARANCE (NORMAL) 05/11/18 17:56 RBC Morph Micro Appear 2+ ANISOCYTOSIS (NORMAL) 2+ POIKILOCYTOSIS (NORMAL) 05/11/18 17:56 RBC Morph Micro Appear 2+ ANISOCYTOSIS (NORMAL) 2+ POIKILOCYTOSIS (NORMAL) 05/11/18 17:56 PT 21.9 secs (9.9-12.6) H 05/11/18 17:51 INR 2.0 (0.8-1.2) H 05/11/18 17:51 Sodium 135 mmol/L (135-145) 05/15/18 05:05 Potassium 3.4 mmol/L (3.5-5.0) L 05/15/18 05:05 Chloride 100 mmol/L (101-111) L 05/15/18 05:05 Carbon Dioxide 28 mmol/L (21-32) 05/15/18 05:05 Anion Gap 7.0 (6-13) 05/15/18 05:05 BUN 6 mg/dL (6-20) 05/15/18 05:05 Creatinine 0.6 mg/dL (0.4-1.0) 05/15/18 05:05 Estimated GFR (MDRD) 107 (>89) 05/15/18 05:05 Glucose 99 mg/dL (70-100) 05/15/18 05:05 Lactic Acid 1.1 mmol/L (0.5-2.2) 05/12/18 04:25 Calcium 8.7 mg/dL (8.5-10.3) 05/15/18 05:05 Magnesium 1.5 mg/dL (1.7-2.8) L 05/13/18 04:35 Total Bilirubin 2.6 mg/dL (0.2-1.0) H 05/15/18 05:05 AST 20 IU/L (10-42) 05/15/18 05:05 ALT < 10 IU/L (10-60) L 05/15/18 05:05 Alkaline Phosphatase 131 IU/L (42-121) H 05/15/18 05:05 Ammonia 34.3 umol/L (7-35) 05/15/18 05:05 Troponin I < 0.04 ng/mL (<0.49) 05/11/18 17:56 B-Natriuretic Peptide 3921 pg/mL (5-100) H 05/15/18 06:10 Total Protein 6.1 g/dL (6.7-8.2) L 05/15/18 05:05 Albumin 3.4 g/dL (3.2-5.5) 05/15/18 05:05 Globulin 2.7 g/dL (2.1-4.2) 05/15/18 05:05 Albumin/Globulin Ratio 1.3 (1.0-2.2) 05/15/18 05:05 Lipase 19 U/L (22-51) L 05/11/18 17:56 Urine Color YELLOW 05/13/18 16:48 Urine Clarity CLOUDY (CLEAR) 05/13/18 16:48 Urine pH 6.5 PH (5.0-7.5) 05/13/18 16:48 Ur Specific Hasty 1.020 (1.002-1.030) 05/13/18 16:48 Urine Protein 30 mg/dL (NEGATIVE) H 05/13/18 16:48 Urine Glucose (UA) NEGATIVE mg/dL (NEGATIVE) 05/13/18 16:48 Urine Ketones NEGATIVE mg/dL (NEGATIVE) 05/13/18 16:48 Urine Occult Blood LARGE (NEGATIVE) H 05/13/18 16:48 Urine Nitrite NEGATIVE (NEGATIVE) 05/13/18 16:48 Urine Bilirubin NEGATIVE (NEGATIVE) 05/13/18 16:48 Urine Urobilinogen 4 E.U./dL (NORMAL) H 05/13/18 16:48 Ur Leukocyte Esterase TRACE (NEGATIVE) H 05/13/18 16:48 Urine RBC TNTC /HPF (0-5) H 05/13/18 16:48 Urine WBC 0-3 /HPF (0-5) 05/13/18 16:48 Ur Squamous Epith Cells FEW Squamous (<= Few) 05/13/18 16:48 Urine Bacteria Rare /HPF (None Seen) 05/13/18 16:48 Urine Culture Comments INDICATED 05/13/18 16:48 Urine Opiates Screen POSITIVE (NEGATIVE) H 05/11/18 21:27 Ur Oxycodone Screen NEGATIVE (NEGATIVE) 05/11/18 21:27 Urine Methadone Screen NEGATIVE (NEGATIVE) 05/11/18 21:27 Ur Propoxyphene Screen NEGATIVE (NEGATIVE) 05/11/18 21:27 Ur Barbiturates Screen NEGATIVE (NEGATIVE) 05/11/18 21:27 Ur Tricyclics Screen NEGATIVE (NEGATIVE) 05/11/18 21:27 Ur Phencyclidine Scrn NEGATIVE (NEGATIVE) 05/11/18 21:27 Ur Amphetamine Screen NEGATIVE (NEGATIVE) 05/11/18 21:27 U Methamphetamines Scrn NEGATIVE (NEGATIVE) 05/11/18 21:27 U Benzodiazepines Scrn NEGATIVE (NEGATIVE) 05/11/18 21:27 Urine Cocaine Screen NEGATIVE (NEGATIVE) 05/11/18 21:27 U Cannabinoids Screen NEGATIVE (NEGATIVE) 05/11/18 21:27 Ethyl Alcohol < 5.0 mg/dL 05/11/18 17:51 ABX Reporting Has patient been on IV antibiotics over the past 48 hours?: No Current Medications - Current Medications Current Medications: Laboratory Results WBC 7.0 x10^3/uL (4.8-10.8) 05/14/18 05:05 RBC 4.54 10^6/uL (4.20-5.40) 05/14/18 05:05 Hgb 12.1 g/dL (12.0-16.0) 05/14/18 05:05 Hct 38.4 % (37.0-47.0) 05/14/18 05:05 MCV 84.6 fL (81.0-99.0) 05/14/18 05:05 MCH 26.7 pg (27.0-31.0) L 05/14/18 05:05 MCHC 31.6 g/dL (32.0-36.0) L 05/14/18 05:05 RDW 19.7 % (12.0-15.0) H 05/14/18 05:05 Plt Count 154 10^3/uL (130-450) 05/14/18 05:05 MPV 7.8 fL (7.9-10.8) L 05/14/18 05:05 Neut # (Auto) 4.7 10^3/uL (1.5-6.6) 05/14/18 05:05 Lymph # (Auto) 1.5 10^3/uL (1.5-3.5) 05/14/18 05:05 Sargent # (Auto) 0.7 10^3/uL (0.0-1.0) 05/14/18 05:05 Eos # (Auto) 0.1 10^3/uL (0.0-0.7) 05/14/18 05:05 Baso # (Auto) 0.0 10^3/uL (0.0-0.1) 05/14/18 05:05 Absolute Nucleated RBC 0.01 x10^3/uL 05/14/18 05:05 Nucleated RBC % 0.1 /100WBC 05/14/18 05:05 Manual Slide Review Indicated 05/11/18 17:56 Platelet Estimate NORMAL (130-450,000) (NORMAL) 05/11/18 17:56 Platelet Morphology NORMAL APPEARANCE (NORMAL) 05/11/18 17:56 RBC Morph Micro Appear 2+ ANISOCYTOSIS (NORMAL) 2+ POIKILOCYTOSIS (NORMAL) 05/11/18 17:56 RBC Morph Micro Appear 2+ ANISOCYTOSIS (NORMAL) 2+ POIKILOCYTOSIS (NORMAL) 05/11/18 17:56 PT 21.9 secs (9.9-12.6) H 05/11/18 17:51 INR 2.0 (0.8-1.2) H 05/11/18 17:51 Sodium 135 mmol/L (135-145) 05/15/18 05:05 Potassium 3.4 mmol/L (3.5-5.0) L 05/15/18 05:05 Chloride 100 mmol/L (101-111) L 05/15/18 05:05 Carbon Dioxide 28 mmol/L (21-32) 05/15/18 05:05 Anion Gap 7.0 (6-13) 05/15/18 05:05 BUN 6 mg/dL (6-20) 05/15/18 05:05 Creatinine 0.6 mg/dL (0.4-1.0) 05/15/18 05:05 Estimated GFR (MDRD) 107 (>89) 05/15/18 05:05 Glucose 99 mg/dL (70-100) 05/15/18 05:05 Lactic Acid 1.1 mmol/L (0.5-2.2) 05/12/18 04:25 Calcium 8.7 mg/dL (8.5-10.3) 05/15/18 05:05 Magnesium 1.5 mg/dL (1.7-2.8) L 05/13/18 04:35 Total Bilirubin 2.6 mg/dL (0.2-1.0) H 05/15/18 05:05 AST 20 IU/L (10-42) 05/15/18 05:05 ALT < 10 IU/L (10-60) L 05/15/18 05:05 Alkaline Phosphatase 131 IU/L (42-121) H 05/15/18 05:05 Ammonia 34.3 umol/L (7-35) 05/15/18 05:05 Troponin I < 0.04 ng/mL (<0.49) 05/11/18 17:56 B-Natriuretic Peptide 3921 pg/mL (5-100) H 05/15/18 06:10 Total Protein 6.1 g/dL (6.7-8.2) L 05/15/18 05:05 Albumin 3.4 g/dL (3.2-5.5) 05/15/18 05:05 Globulin 2.7 g/dL (2.1-4.2) 05/15/18 05:05 Albumin/Globulin Ratio 1.3 (1.0-2.2) 05/15/18 05:05 Lipase 19 U/L (22-51) L 05/11/18 17:56 Urine Color YELLOW 05/13/18 16:48 Urine Clarity CLOUDY (CLEAR) 05/13/18 16:48 Urine pH 6.5 PH (5.0-7.5) 05/13/18 16:48 Ur Specific Hasty 1.020 (1.002-1.030) 05/13/18 16:48 Urine Protein 30 mg/dL (NEGATIVE) H 05/13/18 16:48 Urine Glucose (UA) NEGATIVE mg/dL (NEGATIVE) 05/13/18 16:48 Urine Ketones NEGATIVE mg/dL (NEGATIVE) 05/13/18 16:48 Urine Occult Blood LARGE (NEGATIVE) H 05/13/18 16:48 Urine Nitrite NEGATIVE (NEGATIVE) 05/13/18 16:48 Urine Bilirubin NEGATIVE (NEGATIVE) 05/13/18 16:48 Urine Urobilinogen 4 E.U./dL (NORMAL) H 05/13/18 16:48 Ur Leukocyte Esterase TRACE (NEGATIVE) H 05/13/18 16:48 Urine RBC TNTC /HPF (0-5) H 05/13/18 16:48 Urine WBC 0-3 /HPF (0-5) 05/13/18 16:48 Ur Squamous Epith Cells FEW Squamous (<= Few) 05/13/18 16:48 Urine Bacteria Rare /HPF (None Seen) 05/13/18 16:48 Urine Culture Comments INDICATED 05/13/18 16:48 Urine Opiates Screen POSITIVE (NEGATIVE) H 05/11/18 21:27 Ur Oxycodone Screen NEGATIVE (NEGATIVE) 05/11/18 21:27 Urine Methadone Screen NEGATIVE (NEGATIVE) 05/11/18 21:27 Ur Propoxyphene Screen NEGATIVE (NEGATIVE) 05/11/18 21:27 Ur Barbiturates Screen NEGATIVE (NEGATIVE) 05/11/18 21:27 Ur Tricyclics Screen NEGATIVE (NEGATIVE) 05/11/18 21:27 Ur Phencyclidine Scrn NEGATIVE (NEGATIVE) 05/11/18 21:27 Ur Amphetamine Screen NEGATIVE (NEGATIVE) 05/11/18 21:27 U Methamphetamines Scrn NEGATIVE (NEGATIVE) 05/11/18 21:27 U Benzodiazepines Scrn NEGATIVE (NEGATIVE) 05/11/18 21:27 Urine Cocaine Screen NEGATIVE (NEGATIVE) 05/11/18 21:27 U Cannabinoids Screen NEGATIVE (NEGATIVE) 05/11/18 21:27 Ethyl Alcohol < 5.0 mg/dL 05/11/18 17:51
[2018-05-15] MEDS: LISINOPRIL 5 MG TABLET PO SCH (21:16)
[2018-05-16] MEDS: SODIUM CHLORIDE FLUSH 0.9% 10 ML SYRINGE IVP SCH ×2 (01:24→08:38)
[2018-05-16 06:43] LABS: BASOPHILS % (AUTO) 0.4 %; EOSINOPHILS # (AUTO) 0.2 10^3/uL (0.0-0.7); EOSINOPHILS % (AUTO) 3.6 %; HGB - HEMOGLOBIN 12.2 g/dL (12.0-16.0); LYMPHOCYTES # (AUTO) 1.4 10^3/uL (1.5-3.5); LYMPHOCYTES % (AUTO) 28.1 %; MEAN CORPUSCULAR HEMOGLOBIN 26.5 pg (27.0-31.0); MEAN CORPUSCULAR HGB CONC 31.1 g/dL (32.0-36.0); MEAN CORPUSCULAR VOLUME 85.2 fL (81.0-99.0); MEAN PLATELET VOLUME 8.1 fL (7.9-10.8); MONOCYTES # (AUTO) 0.6 10^3/uL (0.0-1.0); MONOCYTES % (AUTO) 12.7 %; NEUTROPHILS # (AUTO) 2.8 10^3/uL (1.5-6.6); NEUTROPHILS % (AUTO) 55.2 %; PLT - PLATELET COUNT 153 10^3/uL (130-450); RED BLOOD COUNT 4.61 10^6/uL (4.20-5.40); RED CELL DISTRIBUTION WIDTH 20.3 % (12.0-15.0)
[2018-05-16 06:54] LABS: ALBUMIN 3.3 g/dL (3.2-5.5); ALBUMIN/GLOBULIN RATIO 1.2 (1.0-2.2); ALKALINE PHOSPHATASE 127 IU/L (42-121); ALT ALANINE AMINOTRANSFERASE < 10 IU/L (10-60); AST ASPARTATE AMINOTRANSFERASE 22 IU/L (10-42); BILIRUBIN,TOTAL 2.2 mg/dL (0.2-1.0); BUN - BLOOD UREA NITROGEN 6 mg/dL (6-20); CALCIUM 8.6 mg/dL (8.5-10.3); CARBON DIOXIDE - CO2 27 mmol/L (21-32); CHLORIDE 100 mmol/L (101-111); CREATININE 0.6 mg/dL (0.4-1.0); GFR - MDRD 107 (>89); GLUCOSE 84 mg/dL (70-100); MAGNESIUM 1.7 mg/dL (1.7-2.8); PHOSPHORUS 4.2 mg/dL (2.5-4.6); SODIUM 133 mmol/L (135-145)
[2018-05-16] MEDS ORDERED: PANTOPRAZOLE 40 MG TABLET PO SCH (07:00)
[2018-05-16 07:02] VITALS: BP 109/80
[2018-05-16 08:18] LABS: INR 1.4 (0.8-1.2); PT - PROTHROMBIN TIME 15.4 secs (9.9-12.6)
[2018-05-16] MEDS: FUROSEMIDE 40 MG TABLET PO SCH (08:34)
[2018-05-16] MEDS: guaiFENesin 600 MG TABLET PO SCH (08:34)
[2018-05-16] MEDS: rifAXIMin 550 MG TABLET PO SCH (08:34)
[2018-05-16] MEDS: CARVEDILOL 3.125 MG TABLET PO SCH (08:34)
[2018-05-16] MEDS: SPIRONOLACTONE 25 MG TABLET PO SCH (08:34)
[2018-05-16] MEDS: POTASSIUM CHLORIDE 20 MEQ/15 ML UDC PO SCH (08:35)
[2018-05-16] MEDS: LACTULOSE 10 GM /15 ML UDC PO SCH (08:35)
--- NOTE | 2018-05-16 11:27 | Discharge Plan ---
Discharge Plan Disposition: 01 Home, Self Care Condition: Stable Prescriptions: Lactulose [Generlac] 10 gm PO Q6HR PRN #30 solution PRN Reason: Titrate for 3-4 Bowel Movement guaiFENesin [Mucinex] 600 mg PO BID #10 tablet Pantoprazole [Protonix] 40 mg PO QDAC #30 tablet rifAXIMin [Xifaxan] 550 mg PO BID #60 tablet Diet: Low Sodium (2 grams sodium a day and restrict to 2L of fluid a day) Activity Restrictions: Activity as Tolerated Shower Restrictions: No Driving Restrictions: No Instruction Topics: Rifaximin tablets Additional Instructions or Follow Up instructions: You presented with confusion and change in your normal mentation. We think that the cause of this change in her mentation is from the use of pain medication which may have altered your mentation and also due to liver failure which is secondary to your congestive heart failure causing liver congestion. You were treated with medications to remove toxins from your bloodstream which build up with liver failure. You have been continued on these medications were they are called lactulose and rifaximin and you will continue to take them now that your mentation has improved back to the normal. We also recommend that you do not take any kind of narcotic pain medication as they can affect your mentation. We did increase your dose of Lasix to 40 mg and we asked that you take the higher dose when you return home. Otherwise we would like you to continue all your medications that you take for congestive heart failure. We have also referred you to palliative care and our palliative care nurse practitioner Linsey Escoto will follow up with you at home to continue to follow you with your care for your congestive heart failure and liver failure. No Smoking: If you smoke, Please STOP! Call for help. Follow-up with: Cindy Rios ARNP [Primary Care Provider] -
--- NOTE | 2018-05-16 11:39 | DISCHARGE SUMMARY ---
Discharge Summary Admit Date: 05/11/18 Discharge Date: 05/16/18 Discharging Provider: Satya Vivas MD Primary Care Provider: Cindy Rios [facility] Code Status: Do Not Attempt Resuscitation Condition at Discharge: Stable Discharge Disposition: 01 Home, Self Care - DIAGNOSES Admission Diagnoses: 1. Acute metabolic encephalopathy 2. Hyperammonemia 3. Observed seizure-like activity 4. Congestive heart failure 5. Cardiomyopathy 6. COPD 7. Hypertension 8. Cirrhosis of liver with ascites 9. Elevated liver enzymes Discharge Diagnoses with Status of Each Condition: 1. Acute metabolic encephalopathy: Resolved 2. Hepatic encephalopathy: Resolved 3. Cirrhosis of liver with ascites: Stable 4. Acute on chronic systolic heart failure, NYHA class III: Stable 5. Hypokalemia: Resolved 6. COPD: Stable 7. Hypertension: Stable - HPI History of Present Illness: 48 yo female w/ pmh of CHF, COPD, HTN, history of alcohol and methamphetamine abuse presents to the emergency department with altered mental status. Daughter provided history due to pt ams. Daughter states her mother recently moved to [facility] from [place], [place] last year. Pt has her own house, but has been living at her daughters house due to loneliness from her significant other being away on work. Pt was at her daughters house and following a nap was found to be responsive only to painful stimuli and shaking. She was tremulous in her hands and that was new. Pt has no history of seizures. Pt was responding and acting properly prior to the nap. Pt daughter called EMS who reported jaw clenching and tremulousness. Pt did not bite her tongue or have incontinence. Pt has no recent history of travel, sickness. Pt daughter states she has been SOB, but states this is chronic due to her COPD which she has been taking decadron from a recent ER visit 10 days prior. According to the daughter, review of systems is negative with regards to infection, cardiac, pulmonary destabilization. Patient is compliant with medications. In the emergency room,Pt continues to be altered with evidence of metabolic encephalopathy due to possible hepatic encephalopathy. Pt daughter is explained the lab values, imaging, treatment plan and understands fully. Pt daughter states her mother is a full code. - HOSPITAL COURSE Hospital Course: Patient was admitted with acute metabolic encephalopathy which was found to be secondary to hepatic encephalopathy as well as due to narcotic use at home. The patient's symptoms completely resolved and she was back to her baseline by the time of discharge. She was treated with lactulose and rifaximin for her hepatic encephalopathy and had improvement in her ammonia level and overall mentation. She was discharged home with continued treatment with lactulose and rifaximin. The patient's meld score was found to be 17 which gives her a 6% estimated 3- month mortality due to her end-stage liver disease. The patient's liver disease appears to be secondary to her severe congestive heart failure causing right- sided heart failure and liver congestion. The patient's ejection fraction was found to be less than 20% on echocardiogram. The patient's CT scan revealed ascites and liver congestion but the contour of the liver did not appear cirrhotic. The patient also had acute on chronic systolic heart failure for which she was treated with increased dose of Lasix and continued on her spironolactone, carvedilol, lisinopril and digoxin. The patient had improvement in her BNP and overall shortness of breath throughout the hospitalization. The patient was stable at the time of discharge. She was encouraged to decrease her fluid intake to no more than 2 L a day and salt intake to no more than 2 g a day. The patient was seen by our palliative care nurse practitioner prior to discharge who will continue to follow her as an outpatient. The patient did fill out a pulsed form with the palliative care nurse practitioner and did decide to be a DO NOT RESUSCITATE. 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 She will have someone with her in the home for the next week. The patient was seen by physical therapy and was found to be strong enough to return home independently. The patient will need to continue to follow-up with her primary care physician and continue on her home medication to try to best control the symptoms from her severe congestive heart failure and newly diagnosed liver failure. The patient was also started on Protonix daily prior to discharge - ALLERGIES Allergies/Adverse Reactions: Allergies Allergy/AdvReac Type Severity Reaction Status Date / Time doxycycline Allergy Anaphylaxis Verified 05/11/18 17:52 - MEDICATIONS Home Medications: Ambulatory Orders Medication Instructions Recorded Confirmed Aspirin [Adult Low Dose Aspirin EC] 81 mg PO DAILYWM 09/05/17 05/12/18 Carvedilol 3.125 mg PO BID 09/05/17 05/12/18 Digoxin 0.125 mg PO DAILY 09/05/17 05/12/18 Folic Acid 1 mg PO DAILY 09/05/17 05/12/18 Lisinopril 2.5 mg PO DAILY 09/05/17 05/12/18 Spironolactone 12.5 mg PO DAILY 09/05/17 05/12/18 Benzonatate [Tessalon] 100 mg PO TID PRN #25 capsule 04/29/18 05/12/18 Albuterol Sulf [Ventolin Hfa 2 puffs INH Q4HR PRN 05/12/18 05/12/18 Inhaler] Ergocalciferol (Vitamin D2) 50,000 units PO Q7D 05/12/18 05/12/18 [Drisdol] Fluticasone/Vilanterol [Breo 1 puffs INH DAILY 05/12/18 05/12/18 Ellipta 100-25 Mcg INH] Ipratropium [Atrovent] 0.5 mg INH RTTID 05/12/18 05/12/18 Ipratropium/Albuterol [Duoneb] 3 ml INH Q4H PRN 05/12/18 05/12/18 Senna [Senokot] 8.6 mg PO DAILY PRN 05/12/18 05/12/18 Thiamine [Vitamin B-1] 100 mg PO DAILY 05/12/18 05/12/18 Furosemide 40 mg PO DAILY #0 05/16/18 05/12/18 Furosemide [Lasix] 40 mg PO DAILY tablet 05/16/18 Lactulose [Generlac] 10 gm PO Q6HR PRN #30 solution 05/16/18 Pantoprazole [Protonix] 40 mg PO QDAC #30 tablet 05/16/18 guaiFENesin [Mucinex] 600 mg PO BID #10 tablet 05/16/18 rifAXIMin [Xifaxan] 550 mg PO BID #60 tablet 05/16/18 - PHYSICAL EXAM AT DISCHARGE General Appearance: positive: No acute distress, Alert, Other (Cachectic appears much older than stated age.) Eyes Bilateral: positive: Normal inspection, PERRL, EOMI, No lid inflammation, Conjunctivae nml, No scleral icterus ENT: positive: ENT inspection nml, Pharynx nml, No signs of dehydration. negative: Purulent nasal drainage, Pharyngeal erythema, Oral lesions Neck: positive: Nml inspection, Thyroid nml, No JVD, Trachea midline. negative: Lymphadenopathy (R), Lymphadenopathy (L), Stiff neck, Carotid bruit, Tracheal deviation Respiratory: positive: Chest non-tender, No respiratory distress, Rales (Mild at bases). negative: Wheezes, Rhonchi Cardiovascular: positive: Regular rate & rhythm, No murmur, No gallop, Systolic murmur Abdomen: positive: Non-tender, No organomegaly, Nml bowel sounds, No distention, Other (Hernia). negative: Tenderness, Guarding, Rebound, Hepatomegaly Back: positive: Nml inspection. negative: CVA tenderness (R), CVA tenderness (L) Skin: positive: Color nml, No rash, Warm. negative: Cyanosis, Diaphoresis, Pallor, Skin rash Extremities: positive: Non-tender, Full ROM, Nml appearance, No pedal edema Neurologic/Psychiatric: positive: Oriented x3, CN's nml (2-12), Motor nml, Sensation nml, Mood/affect nml - LABS Result Diagrams: 05/16/18 06:31 05/16/18 06:31 Other Lab Results: Laboratory Tests 05/11/18 05/11/18 05/11/18 17:31 17:51 17:51 WBC RBC Hgb Hct MCV MCH MCHC RDW Plt Count MPV Neut # (Auto) Lymph # (Auto) [place] # (Auto) Eos # (Auto) Baso # (Auto) Absolute Nucleated RBC Nucleated RBC % Manual Slide Review Platelet Estimate Platelet Morphology RBC Morph Micro Appear PT 21.9 H INR 2.0 H Sodium Potassium Chloride Carbon Dioxide Anion Gap BUN Creatinine Estimated GFR (MDRD) Glucose Lactic Acid Calcium Ionized Calcium Phosphorus Magnesium Total Bilirubin AST ALT Alkaline Phosphatase Ammonia Troponin I B-Natriuretic Peptide 3303 H Total Protein Albumin Globulin Albumin/Globulin Ratio Lipase Urine Color Urine Clarity Urine pH Ur Specific [place] Urine Protein Urine Glucose (UA) Urine Ketones Urine Occult Blood Urine Nitrite Urine Bilirubin Urine Urobilinogen Ur Leukocyte Esterase Urine RBC Urine WBC Ur Squamous Epith Cells Urine Bacteria Urine Culture Comments Urine Opiates Screen Ur Oxycodone Screen Urine Methadone Screen Ur Propoxyphene Screen Ur Barbiturates Screen Ur Tricyclics Screen Ur Phencyclidine Scrn Ur Amphetamine Screen U Methamphetamines Scrn U Benzodiazepines Scrn Urine Cocaine Screen U Cannabinoids Screen Ethyl Alcohol < 5.0 05/11/18 05/11/18 05/11/18 17:56 17:56 17:56 WBC 11.1 H RBC 4.92 Hgb 13.2 Hct 44.4 MCV 90.2 MCH 26.8 L MCHC 29.7 L RDW 20.3 H Plt Count 200 MPV 7.8 L Neut # (Auto) 8.9 H Lymph # (Auto) 1.3 L [place] # (Auto) 0.8 Eos # (Auto) 0.0 Baso # (Auto) 0.1 Absolute Nucleated RBC 0.01 Nucleated RBC % 0.1 Manual Slide Review Indicated Platelet Estimate NORMAL (130-450,000) Platelet Morphology NORMAL APPEARANCE RBC Morph Micro Appear 2+ POIKILOCYTOSIS PT INR Sodium 135 Potassium 3.8 Chloride 100 L Carbon Dioxide 19 L Anion Gap 16.0 H BUN 14 Creatinine 0.8 Estimated GFR (MDRD) 77 L Glucose 119 H Lactic Acid Calcium 8.6 Ionized Calcium Phosphorus Magnesium 1.7 Total Bilirubin 4.0 H AST 50 H ALT 11 Alkaline Phosphatase 176 H Ammonia Troponin I < 0.04 B-Natriuretic Peptide Total Protein 7.0 Albumin 3.7 Globulin 3.3 Albumin/Globulin Ratio 1.1 Lipase 19 L Urine Color Urine Clarity Urine pH Ur Specific [place] Urine Protein Urine Glucose (UA) Urine Ketones Urine Occult Blood Urine Nitrite Urine Bilirubin Urine Urobilinogen Ur Leukocyte Esterase Urine RBC Urine WBC Ur Squamous Epith Cells Urine Bacteria Urine Culture Comments Urine Opiates Screen Ur Oxycodone Screen Urine Methadone Screen Ur Propoxyphene Screen Ur Barbiturates Screen Ur Tricyclics Screen Ur Phencyclidine Scrn Ur Amphetamine Screen U Methamphetamines Scrn U Benzodiazepines Scrn Urine Cocaine Screen U Cannabinoids Screen Ethyl Alcohol 05/11/18 05/11/18 05/12/18 19:03 21:27 04:25 WBC 7.6 RBC 4.61 Hgb 12.3 Hct 39.1 MCV 84.9 MCH 26.7 L MCHC 31.4 L RDW 19.5 H Plt Count 165 MPV 7.7 L Neut # (Auto) 6.4 Lymph # (Auto) 0.8 L [place] # (Auto) 0.4 Eos # (Auto) 0.0 Baso # (Auto) 0.1 Absolute Nucleated RBC 0.00 Nucleated RBC % 0.0 Manual Slide Review Platelet Estimate Platelet Morphology RBC Morph Micro Appear PT INR Sodium Potassium Chloride Carbon Dioxide Anion Gap BUN Creatinine Estimated GFR (MDRD) Glucose Lactic Acid Calcium Ionized Calcium Phosphorus Magnesium Total Bilirubin AST ALT Alkaline Phosphatase Ammonia 73.7 H Troponin I B-Natriuretic Peptide Total Protein Albumin Globulin Albumin/Globulin Ratio Lipase Urine Color Urine Clarity Urine pH Ur Specific [place] Urine Protein Urine Glucose (UA) Urine Ketones Urine Occult Blood Urine Nitrite Urine Bilirubin Urine Urobilinogen Ur Leukocyte Esterase Urine RBC Urine WBC Ur Squamous Epith Cells Urine Bacteria Urine Culture Comments Urine Opiates Screen POSITIVE H Ur Oxycodone Screen NEGATIVE Urine Methadone Screen NEGATIVE Ur Propoxyphene Screen NEGATIVE Ur Barbiturates Screen NEGATIVE Ur Tricyclics Screen NEGATIVE Ur Phencyclidine Scrn NEGATIVE Ur Amphetamine Screen NEGATIVE U Methamphetamines Scrn NEGATIVE U Benzodiazepines Scrn NEGATIVE Urine Cocaine Screen NEGATIVE U Cannabinoids Screen NEGATIVE Ethyl Alcohol 05/12/18 05/12/18 05/12/18 04:25 04:25 04:25 WBC RBC Hgb Hct MCV MCH MCHC RDW Plt Count MPV Neut # (Auto) Lymph # (Auto) [place] # (Auto) Eos # (Auto) Baso # (Auto) Absolute Nucleated RBC Nucleated RBC % Manual Slide Review Platelet Estimate Platelet Morphology RBC Morph Micro Appear PT INR Sodium 137 Potassium 3.5 Chloride 100 L Carbon Dioxide 25 Anion Gap 12.0 BUN 15 Creatinine 0.8 Estimated GFR (MDRD) 77 L Glucose 100 Lactic Acid Calcium 8.5 Ionized Calcium Phosphorus Magnesium Total Bilirubin 3.9 H AST 31 ALT 10 Alkaline Phosphatase 154 H Ammonia 38.5 H Troponin I B-Natriuretic Peptide 5765.00 H Total Protein 6.2 L Albumin 3.3 Globulin 2.9 Albumin/Globulin Ratio 1.1 Lipase Urine Color Urine Clarity Urine pH Ur Specific [place] Urine Protein Urine Glucose (UA) Urine Ketones Urine Occult Blood Urine Nitrite Urine Bilirubin Urine Urobilinogen Ur Leukocyte Esterase Urine RBC Urine WBC Ur Squamous Epith Cells Urine Bacteria Urine Culture Comments Urine Opiates Screen Ur Oxycodone Screen Urine Methadone Screen Ur Propoxyphene Screen Ur Barbiturates Screen Ur Tricyclics Screen Ur Phencyclidine Scrn Ur Amphetamine Screen U Methamphetamines Scrn U Benzodiazepines Scrn Urine Cocaine Screen U Cannabinoids Screen Ethyl Alcohol 05/12/18 05/13/18 05/13/18 04:25 04:35 04:35 WBC RBC Hgb Hct MCV MCH MCHC RDW Plt Count MPV Neut # (Auto) Lymph # (Auto) [place] # (Auto) Eos # (Auto) Baso # (Auto) Absolute Nucleated RBC Nucleated RBC % Manual Slide Review Platelet Estimate Platelet Morphology RBC Morph Micro Appear PT INR Sodium Potassium Chloride Carbon Dioxide Anion Gap BUN Creatinine Estimated GFR (MDRD) Glucose Lactic Acid 1.1 Calcium Ionized Calcium Phosphorus Magnesium Total Bilirubin AST ALT Alkaline Phosphatase Ammonia 39.1 H Troponin I B-Natriuretic Peptide 1599 H Total Protein Albumin Globulin Albumin/Globulin Ratio Lipase Urine Color Urine Clarity Urine pH Ur Specific [place] Urine Protein Urine Glucose (UA) Urine Ketones Urine Occult Blood Urine Nitrite Urine Bilirubin Urine Urobilinogen Ur Leukocyte Esterase Urine RBC Urine WBC Ur Squamous Epith Cells Urine Bacteria Urine Culture Comments Urine Opiates Screen Ur Oxycodone Screen Urine Methadone Screen Ur Propoxyphene Screen Ur Barbiturates Screen Ur Tricyclics Screen Ur Phencyclidine Scrn Ur Amphetamine Screen U Methamphetamines Scrn U Benzodiazepines Scrn Urine Cocaine Screen U Cannabinoids Screen Ethyl Alcohol 05/13/18 05/13/18 05/13/18 04:35 04:35 04:35 WBC 6.4 RBC 4.34 Hgb 11.6 L Hct 36.7 L MCV 84.6 MCH 26.8 L MCHC 31.7 L RDW 19.9 H Plt Count 156 MPV 7.7 L Neut # (Auto) 4.3 Lymph # (Auto) 1.3 L [place] # (Auto) 0.7 Eos # (Auto) 0.0 Baso # (Auto) 0.1 Absolute Nucleated RBC 0.01 Nucleated RBC % 0.1 Manual Slide Review Platelet Estimate Platelet Morphology RBC Morph Micro Appear PT INR Sodium 138 Potassium 2.9 L Chloride 98 L Carbon Dioxide 31 Anion Gap 9.0 BUN 11 Creatinine 0.8 Estimated GFR (MDRD) 77 L Glucose 99 Lactic Acid Calcium 8.5 Ionized Calcium Phosphorus Magnesium 1.5 L Total Bilirubin 3.3 H AST 22 ALT < 10 L Alkaline Phosphatase 127 H Ammonia Troponin I B-Natriuretic Peptide Total Protein 5.7 L Albumin 3.0 L Globulin 2.7 Albumin/Globulin Ratio 1.1 Lipase Urine Color Urine Clarity Urine pH Ur Specific [place] Urine Protein Urine Glucose (UA) Urine Ketones Urine Occult Blood Urine Nitrite Urine Bilirubin Urine Urobilinogen Ur Leukocyte Esterase Urine RBC Urine WBC Ur Squamous Epith Cells Urine Bacteria Urine Culture Comments Urine Opiates Screen Ur Oxycodone Screen Urine Methadone Screen Ur Propoxyphene Screen Ur Barbiturates Screen Ur Tricyclics Screen Ur Phencyclidine Scrn Ur Amphetamine Screen U Methamphetamines Scrn U Benzodiazepines Scrn Urine Cocaine Screen U Cannabinoids Screen Ethyl Alcohol 05/13/18 05/14/18 05/14/18 16:48 05:05 05:05 WBC RBC Hgb Hct MCV MCH MCHC RDW Plt Count MPV Neut # (Auto) Lymph # (Auto) [place] # (Auto) Eos # (Auto) Baso # (Auto) Absolute Nucleated RBC Nucleated RBC % Manual Slide Review Platelet Estimate Platelet Morphology RBC Morph Micro Appear PT INR Sodium Potassium Chloride Carbon Dioxide Anion Gap BUN Creatinine Estimated GFR (MDRD) Glucose Lactic Acid Calcium Ionized Calcium Phosphorus Magnesium Total Bilirubin AST ALT Alkaline Phosphatase Ammonia 38.5 H Troponin I B-Natriuretic Peptide 3554 H Total Protein Albumin Globulin Albumin/Globulin Ratio Lipase Urine Color YELLOW Urine Clarity CLOUDY Urine pH 6.5 Ur Specific [place] 1.020 Urine Protein 30 H Urine Glucose (UA) NEGATIVE Urine Ketones NEGATIVE Urine Occult Blood LARGE H Urine Nitrite NEGATIVE Urine Bilirubin NEGATIVE Urine Urobilinogen 4 H Ur Leukocyte Esterase TRACE H Urine RBC TNTC H Urine WBC 0-3 Ur Squamous Epith Cells FEW Squamous Urine Bacteria Rare Urine Culture Comments INDICATED Urine Opiates Screen Ur Oxycodone Screen Urine Methadone Screen Ur Propoxyphene Screen Ur Barbiturates Screen Ur Tricyclics Screen Ur Phencyclidine Scrn Ur Amphetamine Screen U Methamphetamines Scrn U Benzodiazepines Scrn Urine Cocaine Screen U Cannabinoids Screen Ethyl Alcohol 05/14/18 05/14/18 05/15/18 05:05 05:05 05:05 WBC 7.0 RBC 4.54 Hgb 12.1 Hct 38.4 MCV 84.6 MCH 26.7 L MCHC 31.6 L RDW 19.7 H Plt Count 154 MPV 7.8 L Neut # (Auto) 4.7 Lymph # (Auto) 1.5 [place] # (Auto) 0.7 Eos # (Auto) 0.1 Baso # (Auto) 0.0 Absolute Nucleated RBC 0.01 Nucleated RBC % 0.1 Manual Slide Review Platelet Estimate Platelet Morphology RBC Morph Micro Appear PT INR Sodium 132 L Potassium 3.0 L Chloride 96 L Carbon Dioxide 27 Anion Gap 9.0 BUN 8 Creatinine 0.8 Estimated GFR (MDRD) 77 L Glucose 158 H Lactic Acid Calcium 8.3 L Ionized Calcium Phosphorus Magnesium Total Bilirubin 3.1 H AST 24 ALT < 10 L Alkaline Phosphatase 118 Ammonia 34.3 Troponin I B-Natriuretic Peptide Total Protein 6.0 L Albumin 3.3 Globulin 2.7 Albumin/Globulin Ratio 1.2 Lipase Urine Color Urine Clarity Urine pH Ur Specific [place] Urine Protein Urine Glucose (UA) Urine Ketones Urine Occult Blood Urine Nitrite Urine Bilirubin Urine Urobilinogen Ur Leukocyte Esterase Urine RBC Urine WBC Ur Squamous Epith Cells Urine Bacteria Urine Culture Comments Urine Opiates Screen Ur Oxycodone Screen Urine Methadone Screen Ur Propoxyphene Screen Ur Barbiturates Screen Ur Tricyclics Screen Ur Phencyclidine Scrn Ur Amphetamine Screen U Methamphetamines Scrn U Benzodiazepines Scrn Urine Cocaine Screen U Cannabinoids Screen Ethyl Alcohol 05/15/18 05/15/18 05/16/18 05:05 06:10 06:31 WBC 5.0 RBC 4.61 Hgb 12.2 Hct 39.3 MCV 85.2 MCH 26.5 L MCHC 31.1 L RDW 20.3 H Plt Count 153 MPV 8.1 Neut # (Auto) 2.8 Lymph # (Auto) 1.4 L [place] # (Auto) 0.6 Eos # (Auto) 0.2 Baso # (Auto) 0.0 Absolute Nucleated RBC 0.01 Nucleated RBC % 0.1 Manual Slide Review Platelet Estimate Platelet Morphology RBC Morph Micro Appear PT INR Sodium 135 Potassium 3.4 L Chloride 100 L Carbon Dioxide 28 Anion Gap 7.0 BUN 6 Creatinine 0.6 Estimated GFR (MDRD) 107 Glucose 99 Lactic Acid Calcium 8.7 Ionized Calcium Phosphorus Magnesium Total Bilirubin 2.6 H AST 20 ALT < 10 L Alkaline Phosphatase 131 H Ammonia Troponin I B-Natriuretic Peptide 3921 H Total Protein 6.1 L Albumin 3.4 Globulin 2.7 Albumin/Globulin Ratio 1.3 Lipase Urine Color Urine Clarity Urine pH Ur Specific [place] Urine Protein Urine Glucose (UA) Urine Ketones Urine Occult Blood Urine Nitrite Urine Bilirubin Urine Urobilinogen Ur Leukocyte Esterase Urine RBC Urine WBC Ur Squamous Epith Cells Urine Bacteria Urine Culture Comments Urine Opiates Screen Ur Oxycodone Screen Urine Methadone Screen Ur Propoxyphene Screen Ur Barbiturates Screen Ur Tricyclics Screen Ur Phencyclidine Scrn Ur Amphetamine Screen U Methamphetamines Scrn U Benzodiazepines Scrn Urine Cocaine Screen U Cannabinoids Screen Ethyl Alcohol 05/16/18 05/16/18 05/16/18 06:31 06:31 06:31 WBC RBC Hgb Hct MCV MCH MCHC RDW Plt Count MPV Neut # (Auto) Lymph # (Auto) [place] # (Auto) Eos # (Auto) Baso # (Auto) Absolute Nucleated RBC Nucleated RBC % Manual Slide Review Platelet Estimate Platelet Morphology RBC Morph Micro Appear PT INR Sodium 133 L Potassium 3.8 Chloride 100 L Carbon Dioxide 27 Anion Gap 6.0 BUN 6 Creatinine 0.6 Estimated GFR (MDRD) 107 Glucose 84 Lactic Acid Calcium 8.6 Ionized Calcium NO Phosphorus 4.2 Magnesium 1.7 Total Bilirubin 2.2 H AST 22 ALT < 10 L Alkaline Phosphatase 127 H Ammonia 41.8 H Troponin I B-Natriuretic Peptide 3217 H Total Protein 6.0 L Albumin 3.3 Globulin 2.7 Albumin/Globulin Ratio 1.2 Lipase Urine Color Urine Clarity Urine pH Ur Specific [place] Urine Protein Urine Glucose (UA) Urine Ketones Urine Occult Blood Urine Nitrite Urine Bilirubin Urine Urobilinogen Ur Leukocyte Esterase Urine RBC Urine WBC Ur Squamous Epith Cells Urine Bacteria Urine Culture Comments Urine Opiates Screen Ur Oxycodone Screen Urine Methadone Screen Ur Propoxyphene Screen Ur Barbiturates Screen Ur Tricyclics Screen Ur Phencyclidine Scrn Ur Amphetamine Screen U Methamphetamines Scrn U Benzodiazepines Scrn Urine Cocaine Screen U Cannabinoids Screen Ethyl Alcohol 05/16/18 07:29 WBC RBC Hgb Hct MCV MCH MCHC RDW Plt Count MPV Neut # (Auto) Lymph # (Auto) [place] # (Auto) Eos # (Auto) Baso # (Auto) Absolute Nucleated RBC Nucleated RBC % Manual Slide Review Platelet Estimate Platelet Morphology RBC Morph Micro Appear PT 15.4 H INR 1.4 H Sodium Potassium Chloride Carbon Dioxide Anion Gap BUN Creatinine Estimated GFR (MDRD) Glucose Lactic Acid Calcium Ionized Calcium Phosphorus Magnesium Total Bilirubin AST ALT Alkaline Phosphatase Ammonia Troponin I B-Natriuretic Peptide Total Protein Albumin Globulin Albumin/Globulin Ratio Lipase Urine Color Urine Clarity Urine pH Ur Specific [place] Urine Protein Urine Glucose (UA) Urine Ketones Urine Occult Blood Urine Nitrite Urine Bilirubin Urine Urobilinogen Ur Leukocyte Esterase Urine RBC Urine WBC Ur Squamous Epith Cells Urine Bacteria Urine Culture Comments Urine Opiates Screen Ur Oxycodone Screen Urine Methadone Screen Ur Propoxyphene Screen Ur Barbiturates Screen Ur Tricyclics Screen Ur Phencyclidine Scrn Ur Amphetamine Screen U Methamphetamines Scrn U Benzodiazepines Scrn Urine Cocaine Screen U Cannabinoids Screen Ethyl Alcohol - DIAGNOSTIC IMAGING Diagnostic Imaging Results: Final report reviewed Diagnostic Imaging Results Comments: CT head Impression: 1. No acute intracranial abnormality. 2. 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 Chest x-ray Impression: No acute findings. Moderate to marked cardiomegaly Abdomen/pelvis CT Impression: 1. Marked cardiomegaly. Small to moderate pericardial effusion. Moderate contrast reflux into the IVC and hepatic veins consistent with decreased cardiac output. 2. Marked gallbladder wall thickening/edema. Slight gallbladder luminal hyper density which could reflect sludge or stones. The wall thickening may be related to generalized edema or liver disease rather than cholecystitis. 3. The liver is unremarkable in appearance other than the contrast reflux into the hepatic veins. A component of passive hepatic congestion could contribute to liver dysfunction. 4. Small abdominal and large pelvic ascites. 5. Moderate generalized body wall edema. 6. Fibroid uterus 7. 5 cm right superior periumbilical fat-containing hernia. Chest x-ray Impression: No radiographically apparent acute abnormality in the chest. No significant changes from prior. Echocardiogram Severe left ventricular enlargement. The left ventricular wall thickness is normal. Overall left ventricular systolic function is severely globally i mpaired with an ejection fraction of less than 20%. Indeterminate left ventricular filling pattern due to tachycardia and fused E/A waves. False chordae tendon a noted in the left ventricle. Spontaneous echo contrast is seen within the left ventricular cavity. Moderate to severe right ventricular enlargement. The right ventricular systolic function is severely impaired. Calcified moderator band is noted. Severe increase in left atrial volume index. Severe right atrial enlargement. Aortic valve is trileaflet. There is no evidence of aortic stenosis. There is no evidence of aortic regurgitation. The mitral valve leaflets are a normal thickness. No mitral stenosis. There is mild mitral regurgitation. The mitral regurgitation is predominantly an anterior directed jet. The tricuspid valve appears structurally normal. No tricuspid stenosis. Moderate tricuspid regurgitation. Moderately abnormal right heart pressures. The right ventricular systolic pressure at at rest is 60 mmHg. The pulmonic valve is normal. Mild pulmonary regurgitation. There is no pulmonic stenosis. A small circumference pericardial effusion is present. There is no evidence of cardiac tamponade. There is evidence of patent [place] versus atrial septal defect with left to right shunting. Contrast injection of agitated saline was positive for atrial shunt. Saline contrast bubbles were seen on the left side after 5 cardiac cycles. Additional bubbles were observed to cross with vigorous Valsa lva. The aortic root, ascending aorta and aortic arch diameters are normal. The pulmonary artery is normal. The inferior vena cava is dilated with less than 50% inspiratory collapse which is suggestive of a right atrial pressure of at least 15 mmHg. No mass or thrombus identified. There is no pleural effusion noted. - FOLLOW UP Follow Up: Patient presented with metabolic encephalopathy found to be likely secondary to hepatic encephalopathy with some influence from narcotic pain medication use. The patient's mentation completely resolved back to her baseline after being treated with lactulose and rifaximin. The patient's ammonia level improved. Th e patient also had some CHF exacerbation which resolved with diuresis. The patient was seen by palliative care given her overall poor prognosis going forward due to her severe congestive heart failure with ejection fraction of less than 20% on echocardiogram and new diagnosis of liver failure with hepatic encephalopathy and ascites likely secondary to congestion of her liver from her severe CHF. The patient will be followed by palliative care as an outpatient and will follow up with her primary care physician. The patient did decide to be a DO NOT RESUSCITATE prior to discharge. - TIME SPENT Time Spent in Discharge (Minutes): 50
--- NOTE | 2018-05-16 12:41 | CONSULTATION NOTE ---
Palliative Care Consultation - Referral Referring Provider: Dr. Vivas Time of Visit: [id number] Referral setting: Hospitalized patient Referral Reason: Severe heart failure/new dx Liver Failure/Goals of Care - Information Sources Records reviewed: RN notes reviewed, Previous records reviewed History/Review of Systems obtained from: Patient, Family (daughter Gisel present for visit) Exam limitations: Clinical condition (patient with mild cognitive deficits; daughter reports she is at about 60% of her baseline; alert and interactive and able to participate in conversation) - History of Present Illness Brief History of Present Illness: This is a 48-year-old woman who appears older than her stated age, she is acu tely admitted to [facility] on 05/11 with altered mental status, with metabolic encephalopathy due to hepatic encephalopathy due to cirrhosis of the liver. There are still some questions regarding her complex history, but she does have a history of alcohol and methamphetamine abuse, with known severe end- stage heart failure. She does report previously she was on hospice but graduated with improved underlying status, and she was in [place] she was living with her significant other's mother. She did have some improvement, but has remained fairly fragile. She has moved to the [place], to be near family. Her daughter Gisel is here with her, Gisel's twin Cyn lives on the street from them all in [place]. 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 Patient does present with some understanding of the severity of her illness, she is feeling somewhat better, she says the liver failure was "new to her" and a bit of surprise. She has underlying COPD, and expect she will continue to smoke. She has established with Cindy Dumont PCP but has only seen her a couple o f times, she is awaiting cardiology consult. She reports she has had ongoing heart problems since 2004. 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; home tomorrow; daughters check on her regularly; Gisel OB NURSE and works at [employer];) Family History - Family History Family History: Mother: Alive and Well, Father: Alive and Well, Brother: Medications/Allergies - Medications Active Medication List: Active Medications Albuterol () 2.5 mg INH RTQ4H PRN PRN Reason: Wheezing Carvedilol (Coreg) 3.125 mg PO BID [facility] Last Admin: 05/16/18 08:34 Dose: 3.125 mg Furosemide (Lasix) 40 mg PO DAILY [facility] Last Admin: 05/16/18 08:34 Dose: 40 mg Guaifenesin (Mucinex) 600 mg PO BID [facility] Last Admin: 05/16/18 08:34 Dose: 600 mg Lactulose (Enulose) 30 gm PO 0900,1400 [facility] Last Admin: 05/16/18 08:35 Dose: 30 gm Lisinopril (Zestril) 2.5 mg PO QPM [facility] Last Admin: 05/15/18 21:16 Dose: 2.5 mg Pantoprazole Sodium (Protonix) 40 mg PO QDAC [facility] Last Admin: 05/16/18 06:35 Dose: 40 mg Rifaximin (Xifaxan) 550 mg PO BID [facility] Last Admin: 05/16/18 08:34 Dose: 550 mg Sodium Chloride (Normal Saline Flush 0.9%) 10 ml IVP PRN PRN PRN Reason: NEEDED PER PROVIDER ORDERS Last Admin: 05/15/18 06:27 Dose: 10 ml Sodium Chloride (Normal Saline Flush 0.9%) 10 ml IVP 0100,0900,1700 [facility] Last Admin: 05/16/18 08:38 Dose: 10 ml Spironolactone (Aldactone) 25 mg PO DAILY [facility] Last Admin: 05/16/18 08:34 Dose: 25 mg Temazepam (Restoril) 7.5 mg PO QPM PRN PRN Reason: Insomnia Aspirin [Adult Low Dose Aspirin EC] 81 mg PO DAILYWM 09/05/17 Carvedilol 3.125 mg PO BID 09/05/17 Digoxin 0.125 mg PO DAILY 09/05/17 Folic Acid 1 mg PO DAILY 09/05/17 Lisinopril 2.5 mg PO DAILY 09/05/17 Spironolactone 12.5 mg PO DAILY 09/05/17 Albuterol Sulf [Ventolin Hfa Inhaler] 2 puffs INH Q4HR PRN 05/12/18 Ergocalciferol (Vitamin D2) [Drisdol] 50,000 units PO Q7D 05/12/18 Fluticasone/Vilanterol [Breo Ellipta 100-25 Mcg INH] 1 puffs INH DAILY 05/12/18 Ipratropium [Atrovent] 0.5 mg INH RTTID 05/12/18 Ipratropium/Albuterol [Duoneb] 3 ml INH Q4H PRN 05/12/18 Senna [Senokot] 8.6 mg PO DAILY PRN 05/12/18 Thiamine [Vitamin B-1] 100 mg PO DAILY 05/12/18 - Allergies Allergies/Adverse Reactions: Allergies Allergy/AdvReac Type Severity Reaction Status Date / Time doxycycline Allergy Anaphylaxis Verified 05/11/18 17:52 Review of Systems - Constitutional Constitutional: reports: Fatigue, Weight stable - Cardiovascular Cardiovascular: reports: Chest pain (occasional chest discomfort), Decr. exercise tolerance - Respiratory Respiratory: reports: Cough (baseline;), SOB with exertion. denies: SOB at rest - Gastrointestinal Gastrointestinal: reports: Constipation, Good appetite. denies: Nausea, Reflux/heartburn - Musculoskeletal Musculoskeletal: reports: Back pain, Muscle weakness, Assistive devices (using walker) - Integumentary Integumentary: reports: Dryness, Other (varicose veins) - Neurological Neurological: reports: General weakness, Memory problems (improving since admit) - Psychiatric Psychiatric: reports: Anxiety - All Other Systems All Other Systems: reports: Reviewed and negative Physical Exam - Vital Signs Vital Signs: Vital Signs x48h Temp Pulse Resp BP Pulse Ox 05/16/18 07:01 36.3 C L 76 16 109/80 98 - Physical Exam General Appearance: positive: Alert, Anxious Eyes Bilateral: positive: Normal inspection ENT: positive: No signs of dehydration Neck: positive: Trachea midline Cardiovascular: positive: Regular rate & rhythm Respiratory: positive: No respiratory distress Abdomen: positive: Non-tender, Soft, Distended (patient perceives at baseline), Other (reducible hernia;) Skin: positive: Dryness Extremities: positive: No pedal edema Neurologic/Psychiatric: positive: Oriented x3, Mood/affect nml, Flat affect Palliative Care - POLST Patient has POLST: Yes POLST Status: DNR, Selective Treatment (completed at visit) Pain: No pain Tiredness/Fatigue: Moderate (4-6) - Palliative Care Discussion: Met with patient and patient's daughter Gisel. Patient does have understanding and able to articulate she has serious illness regarding to her heart and a new surprise for her her liver. She does understand this is life limiting, she is quite tearful in sharing this, and is hoping for the best. We did discuss in the context of her significant other traveling, and patient's relationship with her children, decided Gisel a TRAM E as her daughter would be the primary D POA for medical decisions, her phone numbers [phone]. Her document was completed and notarized. We also discussed as far as given the seriousness of her illness, she does understand if she were to have an acute event, the likelihood of her returning back to her previous level of functioning both cognitively and functionally would most likely be poor. She has made a decision to go ahead and fill out the [facility], as a do not attempt resuscitation/allow natural as well as selective treatment. She would accept further treatment for treating reversible conditions at this point in time, but would not want to be intubated. As far as her bigger picture goals, she is hoping for the best, to have some improvement in her health as well as her quality of life, this would include follow-up with her PCP and field sales representative. Though if she were to have something that was leading to her demise, she would like to be back at home, and with hospice support. Her daughter is in agreement with these plans. Gisel does feel like she could speak for her mother given her goals. At this point she would accept antibiotics for prolongation of life, and depending on the situation would weigh benefits and burdens regarding medically assisted nutrition. Introduced the role of palliative care, given patient has 2 serious illnesses, now with a acute hospitalization, and progressive liver failure agreed would be helpful to follow her on discharge in the outpatient setting. Results - Lab Results Lab results reviewed: Yes Fish Bones: 05/16/18 06:31 05/16/18 06:31 Lab and Imaging Results: Lab Results x24hrs 05/16/18 05/16/18 05/16/18 Range/Units 07:29 06:31 06:31 WBC (4.8-10.8) x10^3/uL RBC (4.20-5.40) 10^6/uL Hgb (12.0-16.0) g/dL Hct (37.0-47.0) % MCV (81.0-99.0) fL MCH (27.0-31.0) pg MCHC (32.0-36.0) g/dL RDW (12.0-15.0) % Plt Count (130-450) 10^3/uL MPV (7.9-10.8) fL Neut # (Auto) (1.5-6.6) 10^3/uL Lymph # (Auto) (1.5-3.5) 10^3/uL Otero # (Auto) (0.0-1.0) 10^3/uL Eos # (Auto) (0.0-0.7) 10^3/uL Baso # (Auto) (0.0-0.1) 10^3/uL Absolute Nucleated RBC x10^3/uL Nucleated RBC % /100WBC PT 15.4 H (9.9-12.6) secs INR 1.4 H (0.8-1.2) Sodium (135-145) mmol/L Potassium (3.5-5.0) mmol/L Chloride (101-111) mmol/L Carbon Dioxide (21-32) mmol/L Anion Gap (6-13) BUN (6-20) mg/dL Creatinine (0.4-1.0) mg/dL Estimated GFR (MDRD) (>89) Glucose (70-100) mg/dL Calcium (8.5-10.3) mg/dL Ionized Calcium Phosphorus (2.5-4.6) mg/dL Magnesium (1.7-2.8) mg/dL Total Bilirubin (0.2-1.0) mg/dL AST (10-42) IU/L ALT (10-60) IU/L Alkaline Phosphatase (42-121) IU/L Ammonia 41.8 H (7-35) umol/L B-Natriuretic Peptide 3217 H (5-100) pg/mL Total Protein (6.7-8.2) g/dL Albumin (3.2-5.5) g/dL Globulin (2.1-4.2) g/dL Albumin/Globulin Ratio (1.0-2.2) 05/16/18 05/16/18 Range/Units 06:31 06:31 WBC 5.0 (4.8-10.8) x10^3/uL RBC 4.61 (4.20-5.40) 10^6/uL Hgb 12.2 (12.0-16.0) g/dL Hct 39.3 (37.0-47.0) % MCV 85.2 (81.0-99.0) fL MCH 26.5 L (27.0-31.0) pg MCHC 31.1 L (32.0-36.0) g/dL RDW 20.3 H (12.0-15.0) % Plt Count 153 (130-450) 10^3/uL MPV 8.1 (7.9-10.8) fL Neut # (Auto) 2.8 (1.5-6.6) 10^3/uL Lymph # (Auto) 1.4 L (1.5-3.5) 10^3/uL Otero # (Auto) 0.6 (0.0-1.0) 10^3/uL Eos # (Auto) 0.2 (0.0-0.7) 10^3/uL Baso # (Auto) 0.0 (0.0-0.1) 10^3/uL Absolute Nucleated RBC 0.01 x10^3/uL Nucleated RBC % 0.1 /100WBC PT (9.9-12.6) secs INR (0.8-1.2) Sodium 133 L (135-145) mmol/L Potassium 3.8 (3.5-5.0) mmol/L Chloride 100 L (101-111) mmol/L Carbon Dioxide 27 (21-32) mmol/L Anion Gap 6.0 (6-13) BUN 6 (6-20) mg/dL Creatinine 0.6 (0.4-1.0) mg/dL Estimated GFR (MDRD) 107 (>89) Glucose 84 (70-100) mg/dL Calcium 8.6 (8.5-10.3) mg/dL Ionized Calcium NO Phosphorus 4.2 (2.5-4.6) mg/dL Magnesium 1.7 (1.7-2.8) mg/dL Total Bilirubin 2.2 H (0.2-1.0) mg/dL AST 22 (10-42) IU/L ALT < 10 L (10-60) IU/L Alkaline Phosphatase 127 H (42-121) IU/L Ammonia (7-35) umol/L B-Natriuretic Peptide (5-100) pg/mL Total Protein 6.0 L (6.7-8.2) g/dL Albumin 3.3 (3.2-5.5) g/dL Globulin 2.7 (2.1-4.2) g/dL Albumin/Globulin Ratio 1.2 (1.0-2.2) Impression and Recommendations - Palliative Care Impression: This is a 48-year-old woman who presents with congestive heart failure NYHA III, with a known ejection fraction of less than 20%, new diagnosis of cirrhosis of the liver with ascites, presenting with acute hepatic encephalopathy, and elevated ammonia. Patient is not back to baseline, as far as functional and cognitive status, but has markedly improved. Given the severity of her illnesses, goals of care conversation initiated, as well as introduction of palliative care for ongoing support. Recommendations/Counseling Done: 1. Acute on chronic systolic heart failure, NYHA III. Ejection fraction is less than 20%. Patient's shortness of breath actually is attributed to her COPD, she does not have any lower extremity edema, and currently has been improving from admission. Patient and daughter sure me she is taking her medications correctly, she reports she uses a Mediset. Patient has been in the past been on hospice related to her heart failure, but has graduated. Currently she would not meet hospice criteria. Patient's goals are to improve quality of life and quality of life as able, did encourage follow-up and compliance with cardiology referral. 2. Cirrhosis of the liver with ascites, with resulting hepatic encephalopathy. Patient is discharged on lactulose and rifaximin. Patient and daughter perceive this is a new diagnosis for patient, though her abdomen has been ascitic for long period of time it appears from reported history. Patient reports abstinence, discussed in the context of community support, if the patient at all integrated into AA or NA community. She has in the past, feels current family support adequate, will explore further at future appointments. 3. Tobacco abuse disorder. Patient reports she has decreased her intake to 6-7 cigarettes in 24 hours. She does not plan to quit, encouraged on discharge to decrease as able. 4. Advanced care planning. Reviewed patient's current understanding of illness, goals of care, completed DPO AA and LILIANE ST as do not attempt resuscitation/allow natural and selective treatments. We will go ahead and obtain outpatient referral from PCP, and follow patient given she is at high risk for recurrent hospitalizations and for future decline secondary to sequela of her illnesses. Time Spent: 60 minutes with greater than 50% of this done in counseling regarding goals of care and anticipatory guidance.
== END 2018-05-16 12:50 | disposition home or self-care (01) | DRG 91 ==
LOC: EDUNIT# → ED 17:43 → MS3 21:56
PROVIDERS: ADMIT Specialist; ATTEND Internal Medicine
DX: G92 Toxic encephalopathy (principal); I50.23 Acute on chronic systolic (congestive) heart failure; I42.6 Alcoholic cardiomyopathy; I42.7 Cardiomyopathy due to drug and external agent; T40.2X5A Adverse effect of other opioids, initial encounter; Y92.009 Unspecified place in unspecified non-institutional (private) residence as the place of occurrence of the external cause; I50.814 Right heart failure due to left heart failure; I50.84 End stage heart failure; K70.31 Alcoholic cirrhosis of liver with ascites; K70.40 Alcoholic hepatic failure without coma; F10.10 Alcohol abuse, uncomplicated; F15.10 Other stimulant abuse, uncomplicated; R25.1 Tremor, unspecified; E87.6 Hypokalemia; K81.9 Cholecystitis, unspecified; I11.0 Hypertensive heart disease with heart failure; J44.9 Chronic obstructive pulmonary disease, unspecified; F17.210 Nicotine dependence, cigarettes, uncomplicated; Z51.5 Encounter for palliative care; Z66 Do not resuscitate; Z79.899 Other long term (current) drug therapy; Z79.82 Long term (current) use of aspirin; Z91.14 Patient's other noncompliance with medication regimen
CPT/HCPCS: 36415; 51702; 70450; 71045; 74177; 80053; 80306; 80320; 81001; 82140; 83605; 83690; 83735; 83880; 84100; 84484; 85025; 85610; 87086; 93005; 93306; 94640; 94770; 96361; 96374; 96375; 96376; 99285

== ENCOUNTER 2018-06-29 12:31 | Outpatient (CLI) | payer MEDICAID | END 2018-06-29 12:32 | disposition short-term general hospital (02) | LOC: EMS 12:31 | PROVIDERS: ATTEND Surgery | DX: R56.9 Unspecified convulsions (principal) | CPT/HCPCS: A0425; A0427; A0999 ==

== ENCOUNTER 2018-07-07 11:34 | Outpatient (CLI) | payer MEDICAID ==
[2018-07-07 12:14] LABS: ALBUMIN 4.7 g/dL (3.2-5.5); ALBUMIN/GLOBULIN RATIO 1.3 (1.0-2.2); ALKALINE PHOSPHATASE 178 IU/L (42-121); ALT ALANINE AMINOTRANSFERASE 45 IU/L (10-60); AST ASPARTATE AMINOTRANSFERASE 63 IU/L (10-42); BILIRUBIN,TOTAL 0.8 mg/dL (0.2-1.0); BUN - BLOOD UREA NITROGEN 15 mg/dL (6-20); CALCIUM 9.9 mg/dL (8.5-10.3); CARBON DIOXIDE - CO2 28 mmol/L (21-32); CHLORIDE 97 mmol/L (101-111); CHOLESTEROL 269 mg/dL; CREATININE 0.5 mg/dL (0.4-1.0); GFR - MDRD 132 (>89); GLUCOSE 92 mg/dL (70-100); HDL CHOLESTEROL 91 mg/dL; LDL CHOLESTEROL,CALCULATED 163 mg/dL; LDL/HDL RATIO 1.8 (<4.4); SODIUM 134 mmol/L (135-145); TOTAL PROTEIN 8.4 g/dL (6.7-8.2); VLDL CHOLESTEROL 15 mg/dL
[2018-07-07 12:16] LABS: BASOPHILS % (AUTO) 0.9 %; EOSINOPHILS # (AUTO) 0.1 10^3/uL (0.0-0.7); EOSINOPHILS % (AUTO) 1.7 %; HGB - HEMOGLOBIN 15.6 g/dL (12.0-16.0); LYMPHOCYTES # (AUTO) 1.5 10^3/uL (1.5-3.5); LYMPHOCYTES % (AUTO) 29.1 %; MEAN CORPUSCULAR HEMOGLOBIN 27.5 pg (27.0-31.0); MEAN CORPUSCULAR HGB CONC 33.1 g/dL (32.0-36.0); MEAN CORPUSCULAR VOLUME 83.1 fL (81.0-99.0); MEAN PLATELET VOLUME 8.5 fL (7.9-10.8); MONOCYTES # (AUTO) 0.6 10^3/uL (0.0-1.0); MONOCYTES % (AUTO) 11.1 %; NEUTROPHILS % (AUTO) 57.2 %; PLT - PLATELET COUNT 189 10^3/uL (130-450); RED BLOOD COUNT 5.65 10^6/uL (4.20-5.40); RED CELL DISTRIBUTION WIDTH 20.3 % (12.0-15.0); WHITE BLOOD COUNT 5.3 x10^3/uL (4.8-10.8)
== END 2018-07-07 11:35 | disposition home or self-care (01) ==
LOC: LAB 11:34
PROVIDERS: ATTEND Nurse Practitioner Gerontology
DX: K72.10 Chronic hepatic failure without coma (principal); I50.9 Heart failure, unspecified; I42.9 Cardiomyopathy, unspecified; Z13.9 Encounter for screening, unspecified
CPT/HCPCS: 36415; 80053; 80061; 82140; 83721; 84443; 85025

== ENCOUNTER 2018-07-31 14:14 | Outpatient (CLI) | payer MEDICAID | END 2018-07-31 14:15 | disposition critical access hospital (66) | LOC: EMS 14:14 | PROVIDERS: ATTEND Surgery | DX: R25.1 Tremor, unspecified (principal); G40.89 Other seizures | CPT/HCPCS: A0425; A0429; A0999 ==

== ENCOUNTER 2018-07-31 14:37 | Emergency (ER) | payer MEDICAID ==
--- NOTE | 2018-07-31 14:42 | ED Physician Documentation ---
PD HPI SEIZURE - Stated complaint Stated Complaint: POSS SZ - History obtained from History obtained from: Patient - History of Present Illness Timing - onset: Today Witnessed: Witnessed Number of seizures: Single, Lasted minutes Description of seizure activity: Focal (her arm tremored uncontrollably and she was confused and not interacting for 10-15 seconds. Had had similar a few times and in particular a few weeks ago. Seen at and had Neurology eval with MRI, labs, ? and Rx with Keppra. Prior ones were arm focal seizures as well.) Injury during seizure: None Associated symptoms: Headache. No: Chest pain, Palpitations, Dyspnea History of seizures: Known seizure disorder Contributing factors: No: Substance abuse, EtOH withdrawal Similar symptoms before: Diagnosis (partial to full seizure) Recently seen: Not recently seen Review of Systems Constitutional: denies: Fever Nose: denies: Rhinorrhea / runny nose, Congestion Throat: denies: Sore throat Respiratory: denies: Cough GI: denies: Vomiting, Diarrhea : denies: Dysuria, Frequency PD PAST MEDICAL HISTORY - Past Medical History Cardiovascular: Congestive heart failure, Hypertension Respiratory: COPD (And is a current tobacco smoker, not on oxygen) Neuro: None, Seizure disorder (recent diagnosis with Neurology eval, MRI, labs.) Endocrine/Autoimmune: None GI: Other (hernia) 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 HEENT: None Psych: Anxiety Musculoskeletal: None Derm: None - Past Surgical History Past Surgical History: Yes /WRECKER OPERATOR: Tubal ligation - Present Medications Home Medications: Ambulatory Orders Medication Instructions Recorded Confirmed Aspirin [Adult Low Dose Aspirin EC] 81 mg PO DAILYWM 09/05/17 05/12/18 Carvedilol 3.125 mg PO BID 09/05/17 05/12/18 Digoxin 0.125 mg PO DAILY 09/05/17 05/12/18 Folic Acid 1 mg PO DAILY 09/05/17 05/12/18 Lisinopril 2.5 mg PO DAILY 09/05/17 05/12/18 Spironolactone 12.5 mg PO DAILY 09/05/17 05/12/18 Benzonatate [Tessalon] 100 mg PO TID PRN #25 capsule 04/29/18 05/12/18 Albuterol Sulf [Ventolin Hfa 2 puffs INH Q4HR PRN 05/12/18 05/12/18 Inhaler] Ergocalciferol (Vitamin D2) 50,000 units PO Q7D 05/12/18 05/12/18 [Drisdol] Fluticasone/Vilanterol [Breo 1 puffs INH DAILY 05/12/18 05/12/18 Ellipta 100-25 Mcg INH] Ipratropium [Atrovent] 0.5 mg INH RTTID 05/12/18 05/12/18 Ipratropium/Albuterol [Duoneb] 3 ml INH Q4H PRN 05/12/18 05/12/18 Senna [Senokot] 8.6 mg PO DAILY PRN 05/12/18 05/12/18 Thiamine [Vitamin B-1] 100 mg PO DAILY 05/12/18 05/12/18 Furosemide 40 mg PO DAILY #0 05/16/18 05/12/18 Furosemide [Lasix] 40 mg PO DAILY tablet 05/16/18 Lactulose [Generlac] 10 gm PO Q6HR PRN #30 solution 05/16/18 Pantoprazole [Protonix] 40 mg PO QDAC #30 tablet 05/16/18 guaiFENesin [Mucinex] 600 mg PO BID #10 tablet 05/16/18 rifAXIMin [Xifaxan] 550 mg PO BID #60 tablet 05/16/18 - Allergies Allergies/Adverse Reactions: Allergies Allergy/AdvReac Type Severity Reaction Status Date / Time doxycycline Allergy Anaphylaxis Verified 07/31/18 14:50 - Social History Does the pt smoke?: Yes Smoking Status: Current every day smoker Does the pt drink ETOH?: No Does the pt have substance abuse?: No - Immunizations Immunizations are current?: Yes - POLST Patient has POLST: Yes POLST Status: Full Code PD ED PE NORMAL - Vitals Vital signs reviewed: Yes - General General: Alert and oriented X 3, No acute distress (but seems anxious), Well developed/nourished - HEENT HEENT: Atraumatic, Pharynx benign - Neck Neck: Supple, no meningeal sign, No adenopathy - Cardiac Cardiac: RRR, No murmur - Respiratory Respiratory: Clear bilaterally - Abdomen Abdomen: Normal bowel sounds, Soft, Non tender, Non distended - Back Back: No CVA TTP - Derm Derm: Normal color, Warm and dry - Extremities Extremities: No tenderness to palpate, Normal ROM s pain, No edema, No calf tenderness / cord - Neuro Neuro: Alert and oriented X 3, No motor deficit, Normal speech Eye Opening: Spontaneous Motor: Obeys Commands Verbal: Oriented GCS Score: 15 Results - Vitals Vitals: Vital Signs - 24 hr 07/31/18 07/31/18 14:46 16:26 Temperature 37.3 C 36.9 C Heart Rate 104 H 83 Respiratory 16 16 Rate Blood Pressure 140/73 H 124/79 O2 Saturation 100 97 Oxygen O2 Source [With Activity] Room air O2 Source Room air - Labs Labs: Laboratory Tests 07/31/18 07/31/18 15:25 15:25 WBC 5.4 RBC 4.82 Hgb 13.7 Hct 39.5 MCV 81.9 MCH 28.3 MCHC 34.6 RDW 18.9 H Plt Count 150 MPV 8.0 Neut # (Auto) 4.2 Lymph # (Auto) 0.8 L [place] # (Auto) 0.4 Eos # (Auto) 0.0 Baso # (Auto) 0.0 Absolute Nucleated RBC 0.00 Nucleated RBC % 0.0 Sodium 127 L Potassium 4.4 Chloride 92 L Carbon Dioxide 25 Anion Gap 10.0 BUN 8 Creatinine 0.5 Estimated GFR (MDRD) 132 Glucose 114 H Calcium 9.6 Magnesium 1.5 L Total Bilirubin 0.9 AST 44 H ALT 27 Alkaline Phosphatase 139 H Total Protein 7.6 Albumin 4.4 Globulin 3.2 Albumin/Globulin Ratio 1.4 Lipase 27 PD MEDICAL DECISION MAKING - ED course Complexity details: reviewed results (Sodium moderately low, but not too much lower than baseline. Doubt cause of the Sz.), considered differential (recent Dx and workup for seizures, with recurrent one self-limited with full recovery. ), d/w patient, d/w family Departure - Departure Disposition: 01 Home, Self Care Clinical Impression: Recurrent seizures Condition: Stable Record reviewed to determine appropriate education?: Yes Instructions: ED Seizure Recurrent Comments: Continue your current medications. Stay adequately hydrated. Follow-up with your primary care for recheck later in the week, call for an appointment. Return if recurrent problems. Discharge Date/Time: 07/31/18 16:27
[2018-07-31] MEDS ORDERED: LORazepam 0.5 MG TABLET PO STA (15:13)
[2018-07-31 15:31] LABS: BASOPHILS % (AUTO) 0.6 %; EOSINOPHILS % (AUTO) 0.4 %; HGB - HEMOGLOBIN 13.7 g/dL (12.0-16.0); LYMPHOCYTES # (AUTO) 0.8 10^3/uL (1.5-3.5); LYMPHOCYTES % (AUTO) 13.9 %; MEAN CORPUSCULAR HEMOGLOBIN 28.3 pg (27.0-31.0); MEAN CORPUSCULAR HGB CONC 34.6 g/dL (32.0-36.0); MEAN CORPUSCULAR VOLUME 81.9 fL (81.0-99.0); MONOCYTES # (AUTO) 0.4 10^3/uL (0.0-1.0); MONOCYTES % (AUTO) 7.3 %; NEUTROPHILS # (AUTO) 4.2 10^3/uL (1.5-6.6); NEUTROPHILS % (AUTO) 77.8 %; PLT - PLATELET COUNT 150 10^3/uL (130-450); RED BLOOD COUNT 4.82 10^6/uL (4.20-5.40); RED CELL DISTRIBUTION WIDTH 18.9 % (12.0-15.0); WHITE BLOOD COUNT 5.4 x10^3/uL (4.8-10.8)
[2018-07-31 15:45] LABS: ALBUMIN 4.4 g/dL (3.2-5.5); ALBUMIN/GLOBULIN RATIO 1.4 (1.0-2.2); BILIRUBIN,TOTAL 0.9 mg/dL (0.2-1.0); CALCIUM 9.6 mg/dL (8.5-10.3); CREATININE 0.5 mg/dL (0.4-1.0); MAGNESIUM 1.5 mg/dL (1.7-2.8); TOTAL PROTEIN 7.6 g/dL (6.7-8.2)
[2018-07-31 16:27] VITALS: BP 124/79
== END 2018-07-31 16:27 | disposition home or self-care (01) ==
LOC: EDUNIT# → ED 14:37
DX: G40.909 Epilepsy, unspecified, not intractable, without status epilepticus (principal); I11.0 Hypertensive heart disease with heart failure; I50.9 Heart failure, unspecified; J44.9 Chronic obstructive pulmonary disease, unspecified; F17.200 Nicotine dependence, unspecified, uncomplicated; Z79.82 Long term (current) use of aspirin
CPT/HCPCS: 36415; 80053; 83690; 83735; 85025; 99283; A9270

== ENCOUNTER 2018-08-11 09:46 | Outpatient (CLI) | payer MEDICAID ==
[2018-08-11 13:17] LABS: ALBUMIN 4.4 g/dL (3.2-5.5); ALBUMIN/GLOBULIN RATIO 1.4 (1.0-2.2); ALKALINE PHOSPHATASE 150 IU/L (42-121); ALT ALANINE AMINOTRANSFERASE 43 IU/L (10-60); AST ASPARTATE AMINOTRANSFERASE 81 IU/L (10-42); BILIRUBIN,TOTAL 0.9 mg/dL (0.2-1.0); BUN - BLOOD UREA NITROGEN 9 mg/dL (6-20); CALCIUM 9.3 mg/dL (8.5-10.3); CARBON DIOXIDE - CO2 30 mmol/L (21-32); CHLORIDE 99 mmol/L (101-111); CREATININE 0.4 mg/dL (0.4-1.0); GFR - MDRD 171 (>89); GLUCOSE 92 mg/dL (70-100); SODIUM 135 mmol/L (135-145); TOTAL PROTEIN 7.6 g/dL (6.7-8.2)
[2018-08-11 14:24] LABS: DIGOXIN < 0.2 ng/mL
== END 2018-08-11 23:59 | disposition home or self-care (01) ==
LOC: LAB.N 09:46
PROVIDERS: ATTEND Internal Medicine Cardiovascular Disease
DX: I50.22 Chronic systolic (congestive) heart failure (principal)
CPT/HCPCS: 36415; 80053; 80162

== ENCOUNTER 2018-10-07 13:02 | Outpatient (CLI) | payer MEDICAID ==
[2018-10-07 13:17] LABS: BASOPHILS % (AUTO) 0.8 %; EOSINOPHILS % (AUTO) 0.8 %; LYMPHOCYTES # (AUTO) 1.4 10^3/uL (1.5-3.5); LYMPHOCYTES % (AUTO) 29.1 %; MEAN CORPUSCULAR HGB CONC 33.9 g/dL (32.0-36.0); MEAN CORPUSCULAR VOLUME 91.6 fL (81.0-99.0); MEAN PLATELET VOLUME 7.7 fL (7.9-10.8); MONOCYTES # (AUTO) 0.5 10^3/uL (0.0-1.0); MONOCYTES % (AUTO) 9.4 %; NEUTROPHILS # (AUTO) 2.9 10^3/uL (1.5-6.6); NEUTROPHILS % (AUTO) 59.9 %; PLT - PLATELET COUNT 207 10^3/uL (130-450); RED BLOOD COUNT 4.53 10^6/uL (4.20-5.40); RED CELL DISTRIBUTION WIDTH 13.8 % (12.0-15.0); WHITE BLOOD COUNT 4.8 x10^3/uL (4.8-10.8)
[2018-10-07 13:39] LABS: ALBUMIN 4.3 g/dL (3.2-5.5); ALBUMIN/GLOBULIN RATIO 1.5 (1.0-2.2); BILIRUBIN,TOTAL 1.1 mg/dL (0.2-1.0); CALCIUM 9.4 mg/dL (8.5-10.3); CREATININE 0.5 mg/dL (0.4-1.0); TOTAL PROTEIN 7.2 g/dL (6.7-8.2)
== END 2018-10-07 13:03 | disposition home or self-care (01) ==
LOC: LAB 13:02
PROVIDERS: ATTEND Nurse Practitioner Gerontology
DX: K72.10 Chronic hepatic failure without coma (principal); I50.9 Heart failure, unspecified; I42.9 Cardiomyopathy, unspecified; Z13.9 Encounter for screening, unspecified
CPT/HCPCS: 36415; 80053; 82140; 85025

== ENCOUNTER 2019-03-06 08:00 | Outpatient (CLI) | payer MEDICAID ==
[2019-03-06 12:36] LABS: ALBUMIN 4.5 g/dL (3.2-5.5); ALBUMIN/GLOBULIN RATIO 1.5 (1.0-2.2); BILIRUBIN,TOTAL 0.8 mg/dL (0.2-1.0); CALCIUM 9.7 mg/dL (8.5-10.3); CREATININE 0.6 mg/dL (0.4-1.0); TOTAL PROTEIN 7.5 g/dL (6.7-8.2)
== END 2019-03-06 23:59 | disposition home or self-care (01) ==
LOC: LAB.N 08:00
PROVIDERS: ATTEND Nurse Practitioner Gerontology
DX: E87.1 Hypo-osmolality and hyponatremia (principal); R56.9 Unspecified convulsions; Z79.899 Other long term (current) drug therapy
CPT/HCPCS: 36415; 80053; 80177

== ENCOUNTER 2019-12-01 08:00 | Outpatient (CLI) | payer MEDICAID ==
[2019-12-01 18:45] LABS: BASOPHILS # (AUTO) 0.1 10^3/uL (0.0-0.1); BASOPHILS % (AUTO) 1.5 %; EOSINOPHILS # (AUTO) 0.2 10^3/uL (0.0-0.7); EOSINOPHILS % (AUTO) 4.3 %; HGB - HEMOGLOBIN 13.8 g/dL (12.0-16.0); LYMPHOCYTES # (AUTO) 1.8 10^3/uL (1.5-3.5); MEAN CORPUSCULAR HEMOGLOBIN 29.5 pg (27.0-31.0); MEAN CORPUSCULAR HGB CONC 32.2 g/dL (32.0-36.0); MEAN CORPUSCULAR VOLUME 91.7 fL (81.0-99.0); MEAN PLATELET VOLUME 9.7 fL (7.9-10.8); MONOCYTES # (AUTO) 0.6 10^3/uL (0.0-1.0); MONOCYTES % (AUTO) 12.6 %; NEUTROPHILS % (AUTO) 43.4 %; PLT - PLATELET COUNT 261 10^3/uL (130-450); RED BLOOD COUNT 4.68 10^6/uL (4.20-5.40); RED CELL DISTRIBUTION WIDTH 12.9 % (12.0-15.0); WHITE BLOOD COUNT 4.7 x10^3/uL (4.8-10.8)
[2019-12-01 19:16] LABS: ALBUMIN/GLOBULIN RATIO 1.4 (1.0-2.2); VLDL CHOLESTEROL 12 mg/dL
[2019-12-01 19:17] LABS: ALBUMIN 4.5 g/dL (3.2-5.5); ALKALINE PHOSPHATASE 80 IU/L (42-121); ALT ALANINE AMINOTRANSFERASE 12 IU/L (10-60); AST ASPARTATE AMINOTRANSFERASE 29 IU/L (10-42); BILIRUBIN,TOTAL 0.7 mg/dL (0.2-1.0); BUN - BLOOD UREA NITROGEN 10 mg/dL (6-20); CALCIUM 9.5 mg/dL (8.5-10.3); CARBON DIOXIDE - CO2 28 mmol/L (21-32); CHLORIDE 96 mmol/L (101-111); CHOLESTEROL 273 mg/dL; CREATININE 0.7 mg/dL (0.4-1.0); GLUCOSE 98 mg/dL (70-100); HDL CHOLESTEROL 134 mg/dL; LDL CHOLESTEROL,CALCULATED 127 mg/dL; LDL/HDL RATIO 0.9 (<4.4); SODIUM 134 mmol/L (135-145); TOTAL PROTEIN 7.7 g/dL (6.7-8.2)
== END 2019-12-01 23:59 | disposition home or self-care (01) ==
LOC: LAB.WCP 08:00
PROVIDERS: ATTEND Family Medicine
DX: K72.10 Chronic hepatic failure without coma (principal); E87.1 Hypo-osmolality and hyponatremia; R56.9 Unspecified convulsions; I11.0 Hypertensive heart disease with heart failure; I50.9 Heart failure, unspecified
CPT/HCPCS: 36415; 80053; 80061; 80177; 83721; 84443; 85025

== ENCOUNTER 2021-11-03 08:00 | Outpatient (CLI) | payer MEDICAID ==
[2021-11-03 12:30] LABS: BASOPHILS # (AUTO) 0.1 10^3/uL (0.0-0.1); BASOPHILS % (AUTO) 1.4 %; EOSINOPHILS # (AUTO) 0.1 10^3/uL (0.0-0.7); EOSINOPHILS % (AUTO) 2.6 %; HCT - HEMATOCRIT 42.7 % (37.0-47.0); HGB - HEMOGLOBIN 14.5 g/dL (12.0-16.0); LYMPHOCYTES # (AUTO) 1.1 10^3/uL (1.5-3.5); LYMPHOCYTES % (AUTO) 32.7 %; MEAN CORPUSCULAR HEMOGLOBIN 31.3 pg (27.0-31.0); MEAN CORPUSCULAR VOLUME 92.2 fL (81.0-99.0); MEAN PLATELET VOLUME 10.8 fL (7.9-10.8); MONOCYTES # (AUTO) 0.4 10^3/uL (0.0-1.0); MONOCYTES % (AUTO) 10.6 %; NEUTROPHILS # (AUTO) 1.8 10^3/uL (1.5-6.6); NEUTROPHILS % (AUTO) 52.4 %; PLT - PLATELET COUNT 201 10^3/uL (130-450); RED BLOOD COUNT 4.63 10^6/uL (4.20-5.40); RED CELL DISTRIBUTION WIDTH 13.6 % (12.0-15.0); WHITE BLOOD COUNT 3.5 x10^3/uL (4.8-10.8)
[2021-11-03 12:37] LABS: ALBUMIN 4.3 g/dL (3.2-5.5); ALBUMIN/GLOBULIN RATIO 1.4 (1.0-2.2); BILIRUBIN,TOTAL 0.9 mg/dL (0.2-1.0); CALCIUM 9.4 mg/dL (8.5-10.3); CREATININE 0.5 mg/dL (0.4-1.0); POTASSIUM 4.7 mmol/L (3.5-5.0); TOTAL PROTEIN 7.3 g/dL (6.7-8.2)
[2021-11-03 12:40] LABS: ESTIMATED AVERAGE GLUCOSE 103 mg/dL (70-100); HEMOGLOBIN A1c% 5.2 % (4.27-6.07)
== END 2021-11-04 13:03 | disposition home or self-care (01) ==
LOC: LAB.N 08:00
PROVIDERS: ATTEND Physician Assistant Medical
DX: K72.10 Chronic hepatic failure without coma (principal)
CPT/HCPCS: 36415; 80053; 83036; 84443; 85025

== ENCOUNTER 2022-06-10 18:27 | Outpatient (CLI) | payer MEDICAID | END 2022-06-10 23:59 | disposition E | LOC: EMS 18:27 ==